=== PATIENT | female | born 1990 | race Caucasian/White ===

== ENCOUNTER 2018-04-02 10:08 | Observation (INO) ==
[2018-04-02 11:18] LABS: Microscopic, Urine URINE MICROSCOPIC (MICROSCOPIC)
[2018-04-02 11:20] LABS: Appearance,Urine SL CLOUDY (Clear); Bilirubin,Urine Negative (Negative); Blood, Urine Negative (Negative); Color,Urine YELLOW (Yellow); Glucose,Urine (UA) Negative (Negative); Ketones,Urine Negative (Negative); Leukocyte Esterase,Urine Negative (Negative); Protein,Urine Negative (Negative); Urobilinogen,Urine 0.2 EU/dl (0.2)
--- NOTE | 2018-04-02 11:22 | Emergency Department Note ---
ED Disposition Clinical Impression: Serotonin syndrome Disposition: Still a Patient Condition on Discharge: Fair Referrals: Con Carr MD [Primary Care Provider] - - Critical Care Critical Care Time: Yes Attestation: On 04/02/18, the high probability of a clinically significant, sudden or life th reatening deterioration of the following system(s) required my full and direct attention, intervention and personal management. The time I documented below is in addition to time spent performing reported procedures but includes the following listed in this critical care notation. Vital system(s) involved:: Central Nervous System My critical care processes included: Assessment & monitoring of V/S, Initial and Re-exams, Data Review/Interpretation, Coordinating Care, Medication Orders and management, Documentation Medical Decision Making - Abrahan Inquiry Pt receiving controlled substance: Yes Abrahan was queried for this patient: No Reason not queried -: Emergent pt cond-no time Risks and benefits of using a controlled substance: were not discussed with pt by me Vital Signs: 04/02/18 10:33 04/02/18 11:02 04/02/18 11:39 Temperature 99.1 F 98 F Temperature Source Oral Oral Pulse Rate [Right Brachial] 108 H 107 H 117 H Respiratory Rate 20 17 Blood Pressure [Right Arm] 151/110 H 184/106 H 150/100 H Blood Pressure Mean [Right Arm] 123 132 116 Blood Pressure Source [Right Arm] Automatic Cuff Automatic Cuff Automatic Cuff Blood Pressure Position [Right Arm] Sitting Sitting Sitting 02 Sat by Pulse Oximetry 99 96 98 Oxygen Delivery Method Room Air Room Air - Lab Data Lab Results 04/02/18 11:10: WBC 5.9, RBC 4.60, Hgb 12.4, Hct 39.3, MCV 85.4, MCH 26.9 L, MCH C 31.5 L, RDW 12.6, Plt Count 229, MPV 8.1, Neut % (Auto) 74.8, Lymph % (Auto) 19.4, [place] % (Auto) 4.0, Eos % (Auto) 1.1, Baso % (Auto) 0.7, Neut # (Auto) 4.4, Lymph # (Auto) 1.1, [place] # (Auto) 0.2, Eos # (Auto) 0.1, Baso # (Auto) 0.0 04/02/18 11:10: Sodium 139, Potassium 3.8, Chloride 102, Carbon Dioxide 30, Anion Gap 10.8, BUN 9, Creatinine 0.73, Estimated Creat Clear 102, Estimated GFR 94, Est GFR ( Amer) 114, Glucose 87, Calcium 9.0, Total Bilirubin 0.3, AST 16, ALT 21, Alkaline Phosphatase 53, Total Protein 7.8, Albumin 4.0, Globuli n 3.8 H, Albumin/Globulin Ratio 1.1 04/02/18 11:14: Urine Color Yellow, Urine Appearance Sl cloudy, Urine pH 8.0, Ur Specific [place] 1.010, Urine Protein Negative, Urine Glucose (UA) Negative, Urine Ketones Negative, Urine Blood Negative, Urine Nitrate Negative, Urine Bilirubin Negative, Urine Urobilinogen 0.2, Ur Leukocyte Esterase Negative, Urine WBC Occasional, Ur Squamous Epith Cells 10-20, Urine Bacteria Trace 04/02/18 11:14: Urine HCG, Qual Negative Result diagrams: 04/02/18 11:10 04/02/18 11:10 Orders (Tests/Meds): ED MEDICATIONS Generic Name Dose Route Start Last Admin Trade Name Freq PRN Reason Stop Dose Admin Sodium Chloride 1,000 mls @ 999 mls/hr 04/02/18 11:15 04/02/18 11:35 Sod Chlor 0.9% 1000ml Bag IV 04/02/18 13:15 999 mls/hr .[id number] LASHANDA Administration Discontinued Medications Generic Name Dose Route Start Last Admin Trade Name Freq PRN Reason Stop Dose Admin Lorazepam 1 mg 04/02/18 11:39 04/02/18 11:45 Ativan 2mg/Ml Vial IV 04/02/18 11:40 1 mg ONCE ONE Administration ORDERS Category Date Time Status Creatine Kinase Stat Lab 04/02/18 11:40 Ordered Serotonin, Serum Routine Lab 04/02/18 11:10 Stop Req Urinalysis and Microscopic Stat Lab 04/02/18 11:14 Ordered - ECG Data Tracing #1 EKG interpreted by Tucker Valenzuela MD: Rhythm: sinus tachycardia Rate: 123 Sandy: Rightward Ectopy: none Conduction: normal ST Segment Changes: Nonspecific T Wave Changes: Nonspecific Q Waves: none No evidence of acute ischemia or injury - Physician Consults Physician Consulted: Skye Carr Time: 11:57 Reason -: Admission Comment/Response: Agrees to admit the patient to the hospital. We discussed the patient's clinical information, including history, exam, laboratory and radiology results and ED course. Per hospital procedure, I will write temporary bridge inpatient orders on the patient. Specific orders requested by the admitting physician: IV fluids, stop Prozac and trazodone, Ativan 1 mg every 4 hours as needed General Adult HPI - General Chief complaint: Overdose Stated complaint: dizzy lightheaded tired, too many meds Time Seen by Provider: 04/02/18 11:22 Mode of Arrival: Ambulatory Limitations: No Limitations Description of Symptoms (Recalled from ER Triage Doc. by RN): PT INCIDENTALLY TOOK DOUBLE HER PRESCRIBED DOSE FOR LAST TWO WEEKS OF PROZAC AND IS EXTREMELY UPSET THAT SHE HAS DAMAGED HERSELF. SHE SUPPOSED HAS BEEN PRESCRIBED PROZAC 10MG PO TWICE DAILY AND THE "[facility] [employer] SENT HER PROZAC 20MG TABLETS TO WHICH SHE CONTINUED TO TAKE TWICE DAILY. SHE IS CONCERNED REGARDING SEROTONIN SYNDROME. STATES SHE FEELS LIKE SHE IS "LIGHTHEADED AND DRUGGED UP" AND HASN'T FELT RIGHT FOR DAYS. - History of Present Illness HPI narrative: Complains that she just does not feel herself, does not feel right for several days. She says that she just discovered last night that she has been taking more Prozac than prescribed. She had been on 20 mg/day, taken as two 10 mg pills. She was just recently switched to a home delivery pharmacy for her last prescription of Prozac. She discovered last night that she had been taking 20 mg pills, 2 a day. She discovered this by the fact that she was down to her last pill last night after just 2 weeks of a 1 month prescription. She denies visual disturbance. She denies muscle twitching. She has no specific pain. She saw her primary care provider in the office on Tuesday and was started on Ceftin for an upper respiratory infection. She had already been on Macrodantin for a urinary tract infection and is still on that medication. She has a history of -induced hypertension. Says that her blood pressure returned to normal after . - Related Data Home Medications Medication Instructions Recorded Confirmed Fluoxetine HCl [Prozac 20mg 20 mg PO DAILY 04/02/18 04/02/18 Capsule] Nitrofurantoin Monohyd/M-Cryst 100 mg PO BID 04/02/18 04/02/18 [Macrobid 100 mg Capsule] Trazodone HCl 50 mg PO HSP PRN 04/02/18 04/02/18 cefUROXime axetil [Ceftin 500mg 500 mg PO BID 04/02/18 04/02/18 Tab (GEQ)] Allergies Allergy/AdvReac Type Severity Reaction Status Date / Time erythromycin base Allergy Unknown Verified 04/02/18 11:35 [ERYTHROMYCIN BASE] sulfamethoxazole Allergy Verified 04/02/18 10:38 [From Bactrim] trimethoprim [From Bactrim] Allergy Verified 04/02/18 10:38 [facility] History I have reviewed the patient's past medical history: Yes - Social History Alcohol Intake: never - Psychiatric History Expresses thoughts of harming self/others: None Suicide Plan Description: No Plan ROS Obtained: Yes All systems reviewed & no additional complaints - Constitutional Constitutional: Denies fever(s) - ENT Ears, Nose, Mouth, and Throat: Reports nasal congestion, Reports nasal discharge, Reports sore throat - Cardiovascular Cardiovascular: Denies chest pain - Respiratory Respiratory: No dyspnea - Gastrointestinal Gastrointestingal: Denies: abdominal pain, vomiting - Genitourinary Female Genitourinary: Reports dysuria Physical Exam - General General appearance: alert, anxious - Head Head exam: atraumatic, normocephalic - Eye Eye exam: Present: normal appearance, PERRL, EOMI, other (No ocular clonus). Absent: nystagmus - ENT ENT exam: Present: normal oropharynx - Neck Neck exam: Present: normal inspection, full ROM - Chest Chest inspection: Present: normal inspection, symmetric chest wall rise - Respiratory Respiratory exam: Present: normal lung sounds bilaterally. Absent: respiratory distress - Cardiovascular Cardiovascular exam: Present: normal rhythm, tachycardia, normal heart sounds - Abdominal Exam Abdominal exam: Present: soft. Absent: distention, tenderness - Extremities Exam Extremities exam: Present: normal inspection. Absent: pedal edema - Neurological Exam Neurological exam: Present: alert, oriented X3, CN II-XII intact - Expanded Neurological Exam DTR: 4+: patellar (L), patellar (R), Achilles tendon (L), Achilles tendon (R) Comment: Clonus of knees and ankles. Mild to moderate muscular rigidity.
[2018-04-02 11:26] LABS: Bacteria,Urine Trace /lpf; WBC,Urine Occasional #/hpf (0-3)
[2018-04-02 11:29] LABS: Basophils % 0.7 % (0.1-2.0); Eosinophils # 0.1 K/mm3 (0.0-0.4); Eosinophils % 1.1 % (0.1-12.0); Hematocrit 39.3 % (37.0-47.0); Hemoglobin 12.4 g/dL (12.2-16.2); Lymphocytes # 1.1 K/mm3 (0.7-4.5); Lymphocytes % 19.4 K/mm3 (10-50); Mean Corpuscular HGB Conc 31.5 g/dL (31.8-35.4); Mean Corpuscular Hemoglobin 26.9 pg (27.0-31.2); Mean Corpuscular Volume 85.4 fl (81-99); Mean Platelet Volume 8.1 fl (7.4-10.4); Monocytes # 0.2 K/mm3 (0.1-1.0); Neutrophils # 4.4 K/mm3 (1.8-7.8); Neutrophils % 74.8 % (37.0-80.0); Platelet Count 229 K/mm3 (142-424); Red Cell Distribution Width 12.6 % (11.5-17.5); White Blood Count 5.9 K/mm3 (4.8-10.8)
[2018-04-02 11:30] LABS: Albumin/Globulin Ratio 1.1 (1.1-1.8); Anion Gap 10.8 mEq/L (5-15); Bilirubin,Total 0.3 mg/dL (0.2-1.0); Globulin 3.8 gm/dl (1.3-3.2); Potassium 3.8 mmoL/L (3.5-5.1); Total Protein,Serum 7.8 gm/dL (6.4-8.2)
--- NOTE | 2018-04-02 13:22 | Pharmacy Consult Notes ---
[facility] Pharmacy VTE Monitoring - Patient Demographics Admission date: 04/02/18 Report Date: 04/02/18 Time: 13:21 Allergies/Adverse Reactions: Patient Allergies erythromycin base [ERYTHROMYCIN BASE] Allergy (Unknown, Verified 04/02/18 11:35) sulfamethoxazole [From Bactrim] Allergy (Verified 04/02/18 10:38) trimethoprim [From Bactrim] Allergy (Verified 04/02/18 10:38) Height: 1.63 m Weight: 59.988 kg Patient Problems: Current Active Problems Serotonin syndrome (Acute) - VTE Risk Labs: VTE Related Lab Results Hgb 12.4 g/dL (12.2-16.2) 04/02/18 11:10 Hct 39.3 % (37.0-47.0) 04/02/18 11:10 Plt Count 229 K/mm3 (142-424) 04/02/18 11:10 BUN 9 mg/dL (7-18) 04/02/18 11:10 Creatinine 0.73 mg/dL (0.55-1.02) 04/02/18 11:10 Estimated Creat Clear 102 mL/min (0-300) 04/02/18 11:10 VTE Score: 0 VTE Risk Level: Very Low Risk - Prophylaxis Types of VTE Prophylaxis: TEDS Knee High (LINDA HOSE ORDERED)
--- NOTE | 2018-04-03 14:40 | H&P/Discharge Summary ---
<Caren Swanson - Last Filed: 04/03/18 14:57> General - General Admission date:: 04/02/18 Discharge date: 04/03/18 *Admission Date: 04/02/18 *Chief complaint: Did not feel like herself *History of present illness: Tawana Jaramillo is a 28-year-old usually healthy female who presented to [facility] not feeling like herself for the past week. She states she had been on Prozac 10 mg twice daily and had been taking mistakenly 20 mg twice daily. For the past week she has felt funny in the head. She is also had an upper respiratory tract infection and was started on Ceftin last week. She has been taking Sudafed twice daily as well. When she realized that she had been taking twice as much Prozac as prescribed, she presented to the emergency room for evaluation. She received IV fluids which made her feel better. She was admitted overnight for observation. [facility] History 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: Reports:: Migraine Denies:: Atherosclerotic Heart Disease, Cancer, Diabetes Mellitus Type 1, Diabetes Mellitus Type 2, MRSA Other Surgeries: Yes: Amputation: No Fractures: No - *Social History Educational Level: Completed College Alcohol Intake: never Occupational Status: unemployed Housing: house Household Members: spouse - Psychiatric History Expresses thoughts of harming self/others: None Suicide Plan Description: No Plan *Family Hx:: Asthma, Cancer, Diabetes, Heart Attack, Hyperlipidemia, Hypertension, Stroke Review of Systems - Constitutional Reports headache(s), Reports lack of energy, Denies chills, Denies fever(s) - ENT Reports nasal congestion - *Cardiovascular Denies chest pain, Denies shortness of breath - *Respiratory Denies chest congestion, Denies cough, Denies shortness of breath - *Gastrointestinal Denies abdominal pain, Denies constipation, Denies nausea, Denies vomiting - *Genitourinary Denies difficulty urinating - *Musculoskeletal Denies joint pain Comments: Extremities felt tremulous - *Neurologic Denies abnormal walking, Denies abnormal speech, Denies behavioral changes, Denies dizziness, Denies localized weakness Exam Vital signs and Labs for Last 24 Hours: Temp Pulse Resp BP Pulse Ox 98.8 F 88 18 145/86 H 100 04/03/18 07:18 04/03/18 07:18 04/03/18 07:18 04/03/18 07:18 04/03/18 07:18 I & O for Last 24 hours: Intake & Output 04/01/18 04/02/18 04/03/18 04/04/18 12:59 11:59 11:59 11:59 Intake Total 2165 / 2165 Output Total 450 / 450 Balance 1715 / 1715 Weight 132 lb 4 oz - Constitutional no acute distress - *Routine HEENT Exam Head: Present: normocephalic, atraumatic Eye: Present: PERRL ENT: Present: mucous membranes moist, oropharynx clear, dentition normal - *Routine Neck Exam Present: supple, full ROM. Absent: carotid bruit, lymphadenopathy, thyromegaly - *Routine Respiratory Exam Present: CTA bilaterally (Anteriorly and posteriorly) - *Routine Cardiovascular Exam Present: RRR. Absent: murmur - *Routine Abdominal Exam Present: soft, normoactive bowel sounds. Absent: tenderness, organomegaly - *Routine Extremities Exam Present: full ROM. Absent: edema, calf tenderness - *Routine Neurological Exam Present: alert, oriented X3, moving all extremities, normal speech. Absent: tremors Hospital Course Hospital Course: After the IV fluids in the emergency room patient states she did better. She was able to eat without difficulty. She ambulated without difficulty. L aboratory data was negative. A.m. after admission patient continued to do well. She had slept. She was stable to be discharged home. Disposition: Patient discharged home in stable and satisfactory condition. Results Completed studies during hospitalization [Text1]: Laboratory Tests 04/02/18 04/02/18 04/02/18 11:10 11:10 11:10 WBC 5.9 RBC 4.60 Hgb 12.4 Hct 39.3 MCV 85.4 MCH 26.9 L MCHC 31.5 L RDW 12.6 Plt Count 229 MPV 8.1 Neut % (Auto) 74.8 Lymph % (Auto) 19.4 [place] % (Auto) 4.0 Eos % (Auto) 1.1 Baso % (Auto) 0.7 Neut # (Auto) 4.4 Lymph # (Auto) 1.1 [place] # (Auto) 0.2 Eos # (Auto) 0.1 Baso # (Auto) 0.0 Sodium 139 Potassium 3.8 Chloride 102 Carbon Dioxide 30 Anion Gap 10.8 BUN 9 Creatinine 0.73 Estimated Creat Clear 102 Estimated GFR 94 Est GFR ( Amer) 114 Glucose 87 Calcium 9.0 Total Bilirubin 0.3 AST 16 ALT 21 Alkaline Phosphatase 53 Total Creatine Kinase 73 Total Protein 7.8 Albumin 4.0 Globulin 3.8 H Albumin/Globulin Ratio 1.1 Urine Color Urine Appearance Urine pH Ur Specific [place] Urine Protein Urine Glucose (UA) Urine Ketones Urine Blood Urine Nitrate Urine Bilirubin Urine Urobilinogen Ur Leukocyte Esterase Urine WBC Ur Squamous Epith Cells Urine Bacteria 04/02/18 11:14 WBC RBC Hgb Hct MCV MCH MCHC RDW Plt Count MPV Neut % (Auto) Lymph % (Auto) [place] % (Auto) Eos % (Auto) Baso % (Auto) Neut # (Auto) Lymph # (Auto) [place] # (Auto) Eos # (Auto) Baso # (Auto) Sodium Potassium Chloride Carbon Dioxide Anion Gap BUN Creatinine Estimated Creat Clear Estimated GFR Est GFR ( Amer) Glucose Calcium Total Bilirubin AST ALT Alkaline Phosphatase Total Creatine Kinase Total Protein Albumin Globulin Albumin/Globulin Ratio Urine Color Yellow Urine Appearance Sl cloudy Urine pH 8.0 Ur Specific [place] 1.010 Urine Protein Negative Urine Glucose (UA) Negative Urine Ketones Negative Urine Blood Negative Urine Nitrate Negative Urine Bilirubin Negative Urine Urobilinogen 0.2 Ur Leukocyte Esterase Negative Urine WBC Occasional Ur Squamous Epith Cells 10-20 Urine Bacteria Trace DS: Diagnosis - Discharge Diagnosis (1) Depression Status: Acute (2) Upper respiratory tract infection Status: Acute (3) Serotonin syndrome Status: Acute Discharge Medications - Medications for Discharge Home Medication List at Discharge: New Cyproheptadine HCl [Periactin 4mg Tablet] 4 mg PO Q6HP PRN #30 tablet PRN Reason: Serotonin syndrome Continue RX: cefUROXime axetil [Ceftin 500mg Tab (GEQ)] 500 mg PO BID Discontinued RX: Fluoxetine HCl [Prozac 20mg Capsule] 20 mg PO DAILY RX: Trazodone HCl 50 mg PO HSP PRN PRN Reason: Sleep Nitrofurantoin Monohyd/M-Cryst [Macrobid 100 mg Capsule] 100 mg PO BID Disposition Disposition: Home, Self-Care <Con Carr - Last Filed: 04/04/18 08:33> General - General Admission date:: 04/02/18 Exam Vital signs and Labs for Last 24 Hours: Temp Pulse Resp BP Pulse Ox 98.8 F 80 18 145/86 H 100 04/03/18 07:18 04/03/18 08:00 04/03/18 07:18 04/03/18 07:18 04/03/18 07:18 I & O for Last 24 hours: Intake & Output 04/01/18 04/02/18 04/03/18 04/04/18 12:59 11:59 11:59 11:59 Intake Total 2165 / 2165 Output Total 450 / 450 Balance 1715 / 1715 Weight 132 lb 4 oz Hospital Course Hospital Course: Saw patient and agree with above note. DS: Diagnosis - Discharge Diagnosis (1) Depression Status: Acute (2) Upper respiratory tract infection Status: Acute (3) Serotonin syndrome Status: Acute
== END 2018-04-03 11:27 | disposition home or self-care (01) ==
LOC: 2ND 10:08 → UTC 10:08 → 2ND 12:49
PROVIDERS: ADMIT Emergency Medicine; ATTEND Family Medicine

== ENCOUNTER → 2020-01-26 10:37 | Outpatient (CLI) | payer BC, SELFPAY ==
[2020-01-27 16:59] LABS: Covid-19 Nasal PCR Sendout UK Not Detected
== END ==
PROVIDERS: PCP Nurse Practitioner Family; Visit Provider Nurse Practitioner Family
DX: Z03.818 Encounter for observation for suspected exposure to other biological agents ruled out (principal)
CPT/HCPCS: U0003

== ENCOUNTER 2020-10-19 08:59 | Emergency (ER) | payer BC, SELFPAY ==
--- NOTE | 2020-10-19 09:35 | HMH.EDUTC ---
[facility] [place] Clinical Impression: Laryngitis Pharyngitis Qualifiers: Pharyngitis/tonsillitis etiology: unspecified etiology Qualified Code(s): J02.9 - Acute pharyngitis, unspecified Disposition: Home, Self-Care Condition on Discharge: Good Instructions: DI for Pharyngitis/Tonsillopharyngitis -- Adult, DI for Laryngitis Additional Instructions: Drink plenty of fluids. Take tylenol or ibuprofen for pain or fever. Take the medications as directed. Follow up with your regular doctor. GO TO THE ER FOR ANY WORSENING SYMPTOMS Prescriptions: Brompheniramine/Pseudoephed/Dm [Bromfed Dm Cough Syrup] 5 ml PO Q6HP PRN #240 syrup PRN Reason: Cough Transmission Status: Received by [employer] [facility] # methylPREDNISolone [Medrol] 4 mg PO DIRECTED 6 Days #21 tab.ds.pk Transmission Status: Received by [employer] # Cefdinir [Omnicef 300mg Capsule] 300 mg PO BID #20 cap Transmission Status: Received by [employer] # Referrals: Raphael Pineda MD [Primary Care Provider] - Forms: Work/School Release Time of Disposition: 09:38 Medical Decision Making - Medical Records Medical records reviewed: No: I reviewed the patient's medical records. - Abrahan Inquiry Pt receiving controlled substance: No Vital Signs: 10/19/20 09:40 10/19/20 09:42 Temperature 98.5 F 98.5 F Temperature Source Oral Pulse Rate 65 Pulse Rate [Left] 65 Respiratory Rate 18 18 Blood Pressure 147/95 H Blood Pressure [Right Arm] 147/95 H Blood Pressure Mean [Right Arm] 112 02 Sat by Pulse Oximetry 99 - Lab Data Lab results reviewed: Yes: I reviewed the patient's lab results. Lab Results 10/19/20 10:18: Strep Scn Rapid Clinic Negative Orders (Tests/Meds): ORDERS Category Date Time Status Strep Screen Confirmation Stat Micro 10/19/20 10:18 [place] [facility] [place] - General Stated complaint: lost voice, fatigued Time Seen by Provider: 10/19/20 09:40 - History of Present Illness Provider Complaint: She c/o sore throat and difficulty talking since yesterday. - Related Data Home Medications Medication Instructions Recorded Confirmed Fluoxetine HCl [Prozac 20mg 20 mg PO DAILY 07/23/19 07/23/19 Capsule] Trazodone HCl 25 mg PO HS 07/23/19 07/23/19 Previous Rx's Medication Instructions Recorded Ondansetron [Zofran 4mg ODT] 4 mg PO Q8HP PRN #20 tab.rapdis 07/23/19 Brompheniramine/Pseudoephed/Dm 5 ml PO Q6HP PRN #240 syrup 10/19/20 [Bromfed Dm Cough Syrup] Cefdinir [Omnicef 300mg Capsule] 300 mg PO BID #20 cap 10/19/20 methylPREDNISolone [Medrol] 4 mg PO DIRECTED 6 Days #21 10/19/20 tab.ds.pk Allergies Allergy/AdvReac Type Severity Reaction Status Date / Time erythromycin base Allergy Unknown Verified 10/19/20 09:42 [ERYTHROMYCIN BASE] sulfamethoxazole Allergy Verified 10/19/20 09:42 [From Bactrim] trimethoprim [From Bactrim] Allergy Verified 10/19/20 09:42 [facility] History - Hepatitis A Screen Attestation statement:: This patient has been screened for Hepatitis A risk factors. I have reviewed the patient's past medical history: Yes 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: Reports:: Migraine Denies:: Atherosclerotic Heart Disease, Cancer, Diabetes Mellitus Type 1, Diabetes Mellitus Type 2, MRSA Other Surgeries: Yes: Amputation: No Fractures: No - Social History Alcohol Intake: never Occupational Status: other Housing: house Household Members: spouse Family Hx:: Asthma, Cancer, Diabetes, Heart Attack, Hyperlipidemia, Hypertension, Stroke ROS Obtained: Yes All systems reviewed & no additional complaints - Constitutional Constitutional: Denies chills, Denies fever(s), Reports poor appetite, Reports malaise - Eyes Eyes: Denies eye discharge - ENT Ears, Nose, Mouth, and Throat: Reports as per HPI - Cardiovascular Cardiovascular: Denies chest pain - Respiratory Respiratory: Denies chest congestion, Reports cough,
[2020-10-19 09:40] VITALS: BP 147/95; PULSE 65; RESP 18; TEMP 36.9; O2SAT 99; BMI 24.0
[2020-10-19 09:42] VITALS: BP 147/95; PULSE 65; RESP 18; TEMP 36.9; O2SAT 99
[2020-10-19 10:56] LABS: UTC Strep Screen (Rapid) Negative (Negative)
== END 2020-10-19 09:43 | disposition home or self-care (01) ==
PROVIDERS: Emergency Provider Nurse Practitioner Family; PCP Family Medicine
DX: J04.0 Acute laryngitis (principal)
CPT/HCPCS: 87880; 99202; G0463

== ENCOUNTER 2021-03-14 15:19 | Emergency (ER) | payer BC, SELFPAY ==
[2021-03-14 15:25] VITALS: BP 138/92; PULSE 84; RESP 19; TEMP 37.1; O2SAT 98; BMI 25.7
--- NOTE | 2021-03-14 15:39 | HMH.EDUTC ---
[facility] [place] Disposition Clinical Impression: Upper respiratory tract infection Qualifiers: URI type: acute pharyngitis Pharyngitis/tonsillitis etiology: unspecified etiology Qualified Code(s): J02.9 - Acute pharyngitis, unspecified Disposition: Home, Self-Care Condition on Discharge: Good Instructions: DI for Pharyngitis/Tonsillopharyngitis -- Adult Additional Instructions: Start antibiotics today be sure to take it as ordered with the full length of time although you should start feeling better in 24-48 hours. Change toothbrush and toothpaste 24-48 hours after starting antibiotics Tylenol or Motrin as needed for fever or pain Encourage fluids, water, Gatorade, Powerade, try cold fluids, popsicles, ice cream will make it feel better You are contagious for 24 hours. Avoid kissing anyone, no eating or drinking after anyone. You are contagious. Follow-up the ER for new or worsening symptoms or no noticeable improvement over the next 24-48 hours. Follow-up with PCP this week. Prescriptions: Amoxicillin [Amoxicillin 500mg Tab] 500 mg PO BID 10 Days #20 tab Transmission Status: Pending to [employer] # predniSONE [Prednisone 20mg Tab] 20 mg PO BID #10 tab Transmission Status: Pending to [facility] # Referrals: Raphael Pineda MD [Primary Care Provider] - Time of Disposition: 15:45 Medical Decision Making - Abrahan Inquiry Pt receiving controlled substance: No Vital Signs: 03/14/21 15:25 Temperature 98.7 F Temperature Source Oral Pulse Rate [Right Brachial] 84 Respiratory Rate 19 Blood Pressure [Right Arm] 138/92 H Blood Pressure Mean [Right Arm] 107 Blood Pressure Source [Right Arm] Automatic Cuff Blood Pressure Position [Right Arm] Sitting 02 Sat by Pulse Oximetry 98 Oxygen Delivery Method Room Air [facility] [place] HPI - General Chief complaint: Urgent Treatment Center Stated complaint: sore throat,runny nose Time Seen by Provider: 03/14/21 15:39 Mode of Arrival: Ambulatory Source of Information: Patient Limitations: No Limitations Description of Symptoms (Recalled from Triage Doc. by RN): PATIENT C/O SORE THROAT AND CONGESTION SINCE THIS MORNING HEENT Symptoms (Recalled from RN notes): Yes Resp Symptoms (Recalled from RN notes): No Skin Symptoms (Recalled from RN notes): No MS Symptoms (Recalled from RN notes): No Functional Status (Recalled from RN notes): WNL - History of Present Illness Provider Complaint: 31 yr old female presents for sore throat and nasal congestion for 2 days. pt states her child was placed on antibiotics for the same issue, was tested neg for covid - Related Data Home Medications Medication Instructions Recorded Confirmed Trazodone HCl 25 mg PO HS 07/23/19 03/14/21 Sertraline HCl [Zoloft 50mg tablet] 50 mg PO DAILY 03/14/21 03/14/21 Previous Rx's Medication Instructions Recorded Amoxicillin [Amoxicillin 500mg Tab] 500 mg PO BID 10 Days #20 tab 03/14/21 predniSONE [Prednisone 20mg 20 mg PO BID #10 tab 03/14/21 Tab] Allergies Allergy/AdvReac Type Severity Reaction Status Date / Time erythromycin base Allergy Unknown Verified 10/19/20 09:42 [ERYTHROMYCIN BASE] sulfamethoxazole Allergy Verified 10/19/20 09:42 [From Bactrim] trimethoprim [From Bactrim] Allergy Verified 10/19/20 09:42 - Worker's Comp Is this a Worker's Comp case?: No H History - Hepatitis A Screen Drug use history?: No High risk sexual behaviors?: No History of sexually transmitted infection?: No Currently employed?: No Childcare worker?: No Do you have indoor plumbing?: Yes Do you have electricity?: Yes Attestation statement:: This patient has been screened for Hepatitis A risk factors. I have reviewed the patient's past medical history: Yes 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: Reports:: Diabetes Mellitus Type 2, Migraine Denies:: Atherosclerotic Heart Disease, Cancer, Diabetes Mellitus Type 1, MRSA Other Surgeries: Yes: Amputation: No Fractures
[2021-03-14 15:43] LABS: UTC Strep Screen (Rapid) Positive (Negative)
[2021-03-14 15:48] VITALS: BP 138/92; PULSE 84; RESP 19; TEMP 37.1; O2SAT 98
== END 2021-03-14 15:50 | disposition home or self-care (01) ==
PROVIDERS: Emergency Provider Nurse Practitioner Family; PCP Family Medicine
DX: J06.9 Acute upper respiratory infection, unspecified (principal)
CPT/HCPCS: 87880; 99202; G0463

== ENCOUNTER → 2021-07-07 15:21 | Outpatient (CLI) | payer BC, SELFPAY | PROVIDERS: Visit Provider Nurse Practitioner | DX: U07.1 COVID-19 (principal) | CPT/HCPCS: C9803; U0003; U0005 ==

== ENCOUNTER 2022-03-31 08:53 | Emergency (ER) | payer BC, SELFPAY ==
[2022-03-31 09:55] VITALS: BP 146/102; PULSE 75; RESP 21; TEMP 36.7; O2SAT 100; BMI 27.6
[2022-03-31 10:07] VITALS: BP 146/102; PULSE 75; RESP 21; TEMP 36.7; O2SAT 100
--- NOTE | 2022-03-31 10:14 | EXP.UTC ---
Discharge Plan Disposition Patient Disposition: Home, Self-Care Condition: Good Prescriptions Prescriptions: New azithromycin [Zithromax Z-Christiano] 250 mg tablet See Rx Instructions .ROUTE .COMPLEX 5 Days Qty: 6 0RF Rx Instructions: For 250 mg dose pack: take 500 mg today (day 1), then 250 mg for 4 days (days 2-5) benzonatate 100 mg capsule 100 mg PO TID PRN (Reason: cough) Qty: 30 0RF methylprednisolone [Medrol (Christiano)] 4 mg tablets,dose pack See Rx Instructions .Route .COMPLEX 6 Days Qty: 21 0RF Rx Instructions: taper pack; No Action trazodone 50 MG tablet 25 mg PO Referrals Follow up/Referrals: Con Carr MD [Primary Care Provider] - See instructions Activity Restrictions/Add. Instructions Additional Instructions/Restrictions: *Monitor Temp, Over the counter Motrin or Tylenol as directed/as needed Tylenol every 4 hours and Motrin every 6 hours (as long as your family doctor has told you that you can take it) for fever or pain. and straight to ER if unable to lower temp less than 101.0 after medication given *Warm salt water gargles may help to soothe the throat *Throat Lozenges? *Warm fluids like tea with honey may help to soothe the throat? *Sleep elevated *Humidifier/Vaporizer Take medication as prescribed Your throat swab was sent for culture. Those results are typically sent to your primary care. Be sure to follow up in 2-3 days with your family doctor/primary care physician if no improvement so they can review those result and treat if necessary. If you don?t have a primary care doctor, I recommend you get one but in the mean time, you will have to return to a walk in clinic Follow up IMMEDIATELY for new or worsening symptoms or no Noticeable improvement over the next 48-72 hours. 911 for difficulty breathing or swallowing Clinical Impressions Clinical Impression: Sinusitis Stand Alone Forms Stand Alone Forms: Work/School Release Instructions Patient Instructions: DI for Sinusitis, Sinus Headache, Sinusitis Discharge ED Provider: Deanna Green [facility] General Stated complaint: cough, sore throat Mode of Arrival: Ambulatory Source of Information: Patient Limitations: No Limitations Time Seen by Provider: 03/31/22 10:15 Description of Symptoms (Recalled from Triage Doc. by RN): PATIENT C/O SORE THROAT, COUGH, CONGESTION, AND LOSS OF VOICE THAT STARTED TUESDAY NIGHT HEENT Symptoms (Recalled from RN notes): Yes Resp Symptoms (Recalled from RN notes): Yes Skin Symptoms (Recalled from RN notes): No MS Symptoms (Recalled from RN notes): No Functional Status (Recalled from RN notes): WNL History of Present Illness Provider Complaint: Patient states that she has been sick since Tuesday States that she has been having sore throat, cough, sinus congestion and pressure so today when she was still not feeling well she came in States that last night she noticed she was loosing her voice Related Data Home Medications Medication Instructions Recorded Confirmed trazodone 50 mg tablet 25 mg PO HS Insomnia 07/23/19 03/31/22 Previous Rx's Medication Instructions Recorded azithromycin 250 mg tablet See Rx Instructions PO .COMPLEX 5 03/31/22 (Zithromax Z-Christiano) days #6 tabs benzonatate 100 mg capsule 100 mg PO TID PRN cough #30 caps 03/31/22 methylprednisolone 4 mg tablets in See Rx Instructions .Route 03/31/22 a dose pack (Medrol (Christiano)) .COMPLEX 6 days #21 tabs Allergies Allergy/AdvReac Type Severity Reaction Status Date / Time erythromycin base Allergy Unknown Verified 10/19/20 09:42 [ERYTHROMYCIN BASE] sulfamethoxazole Allergy Verified 10/19/20 09:42 [From Bactrim] trimethoprim [From Bactrim] Allergy Verified 10/19/20 09:42 Worker's Comp Is this a Worker's Comp case?: No PFSH PFSH 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 (Updated 03/31/22 @ 10:23 by Deanna Green APRN) Anxiety Asthma Depression Migraine Surgical History (Upd
[2022-03-31 10:16] LABS: UTC Strep Screen (Rapid) Negative (Negative)
[2022-03-31 10:17] LABS: UTC Influenza A Antigen Negative (Negative); UTC Influenza B Antigen Negative (Negative)
== END 2022-03-31 10:28 | disposition home or self-care (01) ==
PROVIDERS: Emergency Provider Nurse Practitioner; PCP Family Medicine
DX: J02.9 Acute pharyngitis, unspecified (principal); R09.81 Nasal congestion; R05.9 Cough, unspecified; D64.9 Anemia, unspecified; G47.00 Insomnia, unspecified; G43.909 Migraine, unspecified, not intractable, without status migrainosus; F32.A Depression, unspecified; F41.9 Anxiety disorder, unspecified; Z79.52 Long term (current) use of systemic steroids; Z79.899 Other long term (current) drug therapy; Z88.0 Allergy status to penicillin; Z88.1 Allergy status to other antibiotic agents; Z88.2 Allergy status to sulfonamides; Z88.3 Allergy status to other anti-infective agents; Z88.8 Allergy status to other drugs, medicaments and biological substances
CPT/HCPCS: 87804; 87880; 99213; G0463

== ENCOUNTER 2022-05-01 08:26 | Emergency (ER) | payer BC, SELFPAY ==
--- NOTE | 2022-05-01 09:27 | EXP.UTC ---
Discharge Plan Disposition Patient Disposition: Home, Self-Care Condition: Good Prescriptions Prescriptions: New phenazopyridine [Pyridium] 200 mg tablet 200 mg PO Q8H 2 Days Qty: 6 0RF ondansetron 4 mg Tablet,Disintegrating 4 mg PO Q8H PRN (Reason: Nausea) Qty: 12 0RF nitrofurantoin monohyd/m-cryst [Macrobid] 100 mg Capsule 100 mg PO BID Qty: 10 0RF Rx Instructions: must administer with a meal/food No Action trazodone 50 MG tablet 25 mg PO HS azithromycin [Zithromax Z-Christiano] 250 mg tablet See Rx Instructions .ROUTE .COMPLEX 5 Days Qty: 6 0RF Rx Instructions: For 250 mg dose pack: take 500 mg today (day 1), then 250 mg for 4 days (days 2-5) benzonatate 100 mg capsule 100 mg PO TID PRN (Reason: cough) Qty: 30 0RF methylprednisolone [Medrol (Christiano)] 4 mg tablets,dose pack See Rx Instructions .Route .COMPLEX 6 Days Qty: 21 0RF Rx Instructions: taper pack; Referrals Follow up/Referrals: Con Carr MD [Primary Care Provider] - See instructions Activity Restrictions/Add. Instructions Additional Instructions/Restrictions: Drink plenty of fluids. Take tylenol or ibuprofen for pain or fever. Take the medications as directed. Follow up with your regular doctor. GO TO THE ER FOR ANY WORSENING SYMPTOMS The pyridium will make your urine turn orange, this is an expected side effect. It will stain your clothes if it comes into contact with them. We will culture the urine. That will tell what bacteria is causing your infection and which antibiotics will treat it best. Sometimes the first antibiotic we prescribe turns out to not work against different bacteria. So, make sure you follow up within 3 days if you are not getting better. Clinical Impressions Clinical Impression: UTI (urinary tract infection) Instructions Patient Instructions: Urinary Tract Infection, Urine Culture Discharge ED Provider: Miguel Canela [facility] General Stated complaint: Burning when Urination Time Seen by Provider: 05/01/22 09:27 History of Present Illness Provider Complaint: She c/o dysuria and urinary frequency for the past 2 days. Related Data Home Medications Medication Instructions Recorded Confirmed trazodone 50 mg tablet 25 mg PO HS Insomnia 07/23/19 03/31/22 Previous Rx's Medication Instructions Recorded azithromycin 250 mg tablet See Rx Instructions PO .COMPLEX 5 03/31/22 (Zithromax Z-Christiano) days #6 tabs benzonatate 100 mg capsule 100 mg PO TID PRN cough #30 caps 03/31/22 methylprednisolone 4 mg tablets in See Rx Instructions .Route 03/31/22 a dose pack (Medrol (Christiano)) .COMPLEX 6 days #21 tabs nitrofurantoin 100 mg PO BID #10 caps 05/01/22 monohydrate/macrocrystals 100 mg capsule (Macrobid) ondansetron 4 mg disintegrating 4 mg PO Q8H PRN Nausea #12 tabs 05/01/22 tablet phenazopyridine 200 mg tablet 200 mg PO Q8H 2 days #6 tabs 05/01/22 (Pyridium) Allergies Allergy/AdvReac Type Severity Reaction Status Date / Time erythromycin base Allergy Unknown Verified 05/01/22 09:34 [ERYTHROMYCIN BASE] sulfamethoxazole Allergy Verified 05/01/22 09:34 [From Bactrim] trimethoprim [From Bactrim] Allergy Verified 05/01/22 09:34 [facility] Disclaimer: The information contained in this section may have been updated after the patient was seen, as this information can be updated by other users. 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 Anxiety Asthma Depression Migraine Surgical History History of section Social History Smoking Status: Never smoker second hand exposure: No alcohol intake: never current occupational status: other Travel in the last 8 weeks: None household members: spouse housing: house current occupational exposures/hazards: No caffeine: No RO
[2022-05-01 09:31] VITALS: BP 136/94; PULSE 75; RESP 16; TEMP 36.6; O2SAT 100; BMI 25.7
[2022-05-01 10:17] LABS: Apearance,Urine Clear (Clear); Color,Urine Orange (Yellow)
[2022-05-01 10:18] LABS: Bilirubin,Urine Negative (Negative); Blood, Urine 2+ (Negative); Glucose,Urine (UA) 1+ (Negative); Ketones,Urine Negative (Negative); Protein,Urine Negative (Negative); Specific Gravity, Urine <= 1.005 (1.005-1.030); UTC Leukocyte Esterase,Urine 2+ (Negative); UTC Nitrate,Urine Positive (Negative); Urobilinogen,Urine 1 EU/dl (0.2)
[2022-05-01 10:30] VITALS: BP 136/94; PULSE 75; RESP 16; TEMP 36.6
== END 2022-05-01 10:33 | disposition home or self-care (01) ==
PROVIDERS: Emergency Provider Nurse Practitioner Family; PCP Family Medicine
DX: N39.0 Urinary tract infection, site not specified (principal); M54.9 Dorsalgia, unspecified; G43.909 Migraine, unspecified, not intractable, without status migrainosus; J45.909 Unspecified asthma, uncomplicated; F32.A Depression, unspecified; F41.9 Anxiety disorder, unspecified; Z88.0 Allergy status to penicillin; Z88.1 Allergy status to other antibiotic agents; Z88.2 Allergy status to sulfonamides; Z88.3 Allergy status to other anti-infective agents; Z88.8 Allergy status to other drugs, medicaments and biological substances
CPT/HCPCS: 81003; 87086; 87088; 87186; 99213; G0463

== ENCOUNTER → 2023-01-27 12:00 | Outpatient (CLI) | payer OTHER, SELFPAY | PROVIDERS: PCP Family Medicine; Visit Provider Student in an Organized Health Care Education/Training Program | DX: J02.9 Acute pharyngitis, unspecified (principal); R05.1 Acute cough; R51.9 Headache, unspecified | CPT/HCPCS: 87635 ==

== ENCOUNTER 2023-04-11 19:14 | Emergency (ER) | payer OTHER, SELFPAY ==
[2023-04-11 19:15] VITALS: BP 158/100; PULSE 78; RESP 18; TEMP 36.6; O2SAT 100; BMI 25.7
--- NOTE | 2023-04-11 20:25 | HMH.EDGENADL ---
Discharge Plan Disposition Patient Disposition: Home, Self-Care Prescriptions Prescriptions: No Action YXY-lotl-ML-[id number] 3-fat com #1 27-1-300 mg capsule PO azithromycin [Zithromax Z-Christiano] 250 mg tablet See Rx Instructions PO .COMPLEX Qty: 6 0RF Rx Instructions: For 250 mg dose pack: take 500 mg today (day 1), then 250 mg for 4 days (days 2-5) PO Referrals Follow up/Referrals: Sofia Michelle [Primary Care Provider] - See instructions Activity Restrictions/Add. Instructions Additional Instructions/Restrictions: At this time it was felt you are safe to be discharged home. If new or worsening symptoms please do not hesitate to return the emergency department. Please dress your wound daily with bacitracin and gauze. Please follow-up with your family doctor within 1 week for continued evaluation. Clinical Impressions Clinical Impression: Fingertip amputation Discharge ED Provider: Howie Medina General Adult HPI General Chief complaint: Wound/Laceration Stated complaint: CUT RT PINKY FINGER Time Seen by Provider: 04/11/23 19:45 Mode of Arrival: Ambulatory Source of Information: Patient Limitations: No Limitations Description of Symptoms (Recalled from ER Triage Doc. by RN): Pt presents with right pinky lac from home while slicing cucumber. Unknown last tetanus shot, currently and does not want one. History of Present Illness HPI narrative: Patient is a 33-year-old female who presents emergency department for evaluation of right pinky fingertip injury while slicing a cucumber. Patient was using a mandolin when she sliced her right pinky. No other traumatic injuries. Last tetanus 4 to 5 years ago. No other acute complaints at this time. Related Data Home Medications Medication Instructions Recorded Confirmed TER-nyek-FO-omega 3-fat com #1 27 cap PO 01/27/23 01/27/23 mg-1 mg-300 mg capsule Previous Rx's Medication Instructions Recorded azithromycin 250 mg tablet See Rx Instructions PO .COMPLEX #6 01/27/23 (Zithromax Z-Christiano) tabs Allergies Allergy/AdvReac Type Severity Reaction Status Date / Time erythromycin base Allergy Unknown Verified 01/27/23 14:57 [ERYTHROMYCIN BASE] sulfamethoxazole Allergy Verified 01/27/23 14:57 [From Bactrim] trimethoprim [From Bactrim] Allergy Verified 01/27/23 14:57 PFSH PFSH Disclaimer: The information contained in this section may have been updated after the patient was seen, as this information can be updated by other users. 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 (Updated 04/11/23 @ 20:25 by Howie Medina MD) Anxiety Asthma Depression Gastroenteritis Laryngitis Migraine Pharyngitis Upper respiratory tract infection UTI (urinary tract infection) Surgical History History of section Social History Smoking Status: Never smoker second hand exposure: No alcohol intake: never current occupational status: other Travel in the last 8 weeks: None household members: spouse housing: house current occupational exposures/hazards: No caffeine: No ROS Obtained: Yes Systems reviewed as appropriate & no additional complaints except as documented Physical Exam General General appearance: alert and in no apparent distress Head Head exam: atraumatic and normocephalic Eye Eye exam: Present PERRL and EOMI ENT ENT exam: Present mucous membranes moist Neck Neck exam: Present normal inspection Chest Chest inspection: Present normal inspection and symmetric chest wall rise Respiratory Respiratory exam: Absent respiratory distress Cardiovascular Cardiovascular exam: Present regular rate and normal rhythm Extremities Exam Extremities exam: Present other (Partial fingertip amputation on the palmar aspect of the right pinky that is largely hemostatic. No nailbed involvement. No exposed bone.) Neurologica
[2023-04-11 20:42] VITALS: BP 140/81; PULSE 79; RESP 18; TEMP 37.1; O2SAT 100
== END 2023-04-11 20:43 | disposition home or self-care (01) ==
PROVIDERS: Emergency Provider Emergency Medicine; PCP Internal Medicine
DX: S61.216A Laceration without foreign body of right little finger without damage to nail, initial encounter (principal); W26.0XXA Contact with knife, initial encounter
CPT/HCPCS: 99283

== ENCOUNTER 2024-01-14 08:32 | Emergency (ER) | payer BC, SELFPAY ==
[2024-01-14 09:30] VITALS: BP 153/96; PULSE 72; RESP 19; TEMP 36.7; O2SAT 98; BMI 27.4
--- NOTE | 2024-01-14 09:49 | ED_ITS ---
Discharge Plan Disposition Patient Disposition: Home, Self-Care Condition: Good Prescriptions Prescriptions: New ciprofloxacin HCl [Cipro] 250 mg tablet 250 mg PO BID 3 Days Qty: 6 0RF Referrals Follow up/Referrals: Sofia Michelle [Primary Care Provider] - See instructions Activity Restrictions/Add. Instructions Additional Instructions/Restrictions: Increase fluids, water and not soda or tea. Can drink cranberry juice or cranberry extract. Wipe front to back Wear cotton underwear Empty bladder after intercourse Start antibiotics immediately and make sure you take the full course although you may start to see improvement over the next 48 hours. You can eat yogurt or take probiotics to decrease diarrhea or yeast infection caused by the antibiotic Be sure to follow-up anytime for new or worsening symptoms in 48 hours for wound urine culture results be sure to let you PCP no recent urine for culture so they can request records and ensure that you have appropriate antibiotic if you are not getting better or getting worse. If symptoms worsen or do not improve return or be seen in the ER. Follow-up with primary care this week. Clinical Impressions Clinical Impression: UTI (urinary tract infection) Instructions Patient Instructions: DI for Urinary Tract Infection (UTI) Print Language Print Language: [place] Discharge ED Provider: Earnest ([facility] HPI General Stated complaint: uti Mode of Arrival: Ambulatory Source of Information: Patient Limitations: No Limitations Time Seen by Provider: 01/14/24 09:49 Description of Symptoms (Recalled from Triage Doc. by RN): PATIENT C/O PAIN AND BURING WITH URINATION SINCE YESTERDAY HEENT Symptoms (Recalled from RN notes): No Resp Symptoms (Recalled from RN notes): No Skin Symptoms (Recalled from RN notes): No MS Symptoms (Recalled from RN notes): No Functional Status (Recalled from RN notes): WNL History of Present Illness Provider Complaint: 33 yr old female presents for burning, freq and pain since yesterday. pt states n tues she finished a course of Macrobid Related Data Previous Rx's ?Medication ?Instructions ?Recorded ciprofloxacin HCl 250 mg tablet 250 mg PO BID 3 days #6 tabs 01/14/24 (Cipro) Allergies Allergy/AdvReac Type Severity Reaction Status Date / Time erythromycin base Allergy Unknown Verified 01/27/23 14:57 [ERYTHROMYCIN BASE] sulfamethoxazole Allergy Verified 01/27/23 14:57 [From Bactrim] trimethoprim [From Bactrim] Allergy Verified 01/27/23 14:57 Worker's Comp Is this a Worker's Comp case?: No [facility] Disclaimer: The information contained in this section may have been updated after the patient was seen, as this information can be updated by other users. 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) Smoking Status: Never smoker second hand exposure: No alcohol intake: never current occupational status: other Travel in the last 8 weeks: None household members: spouse housing: house current occupational exposures/hazards: No caffeine: No ROS Obtained: Yes All systems reviewed & no additional complaints except as documented Constitutional Constitutional: Reports system reviewed and no additional complaints, except as documented Eyes Eyes: Reports system reviewed and no additional complaints, except as documented ENT Ears, Nose, Mouth, and Throat: Reports system reviewed and no additional co mplaints, except as documented Cardiovascular Cardiovascular: Reports system reviewed and no additional complaints, except as documented Respiratory Respiratory: Reports system reviewed and no additional complaints, except as documented Gastrointestinal Gastrointestingal: Reports system reviewed and no additional complaints, except as documented Genitourinary Female Genitourinary: Reports system reviewed and no additional complaints, except as documented, Reports as per HPI, Reports dysuria, Reports urinary frequency, Reports urinary hesitancy and Reports urinary urgency Musculoskeletal Musculoskeletal: Reports system reviewed and no additional complaints, except as documented Neurologic Neurologic: Reports system reviewed and no additional complaints, except as documented Endocrine Endocrine: Reports system reviewed and no additional complaints, except as documented Hematologic/Lymphatic Henatologic/Lymphatic: Reports system reviewed and no additional complaints, except as documented Allergic/Immunologic Allergic/Immunologic: Reports system reviewed and no additional complaints, except as documented Physical Exam General General appearance: alert and in no apparent distress Head Head exam: atraumatic Eye Eye exam: Present normal appearance and PERRL ENT ENT exam: Present normal exam Respiratory Respiratory exam: Present normal lung sounds bilaterally Cardiovascular Cardiovascular exam: Present regular rate and normal rhythm Neurological Exam Neurological exam: Present alert and oriented X3 Medical Decision Making Medical Records Medical records reviewed: Yes I reviewed the patient's medical records. Abrahan Inquiry Pt receiving controlled substance: No Abrahan was queried for this patient: No Vital Signs: 01/14/24 09:30 Temperature 98.1 F Temperature Source Oral Pulse Rate [Left Brachial] 72 Respiratory Rate 19 Blood Pressure [Left Arm] 153/96 H Blood Pressure Mean [Left Arm] 115 Blood Pressure Source [Left Arm] Automatic Cuff Blood Pressure Position [Left Arm] Sitting 02 Sat by Pulse Oximetry 98 Oxygen Delivery Method Room Air Lab Data Lab results reviewed: Yes I reviewed the patient's lab results. Orders (Tests/Meds): ORDERS Category Date Time Status Urine Culture Stat Micro 01/14/24 09:46 Ordered
[2024-01-14 09:51] LABS: Apearance,Urine Clear (Clear); Blood, Urine Negative (Negative); Color,Urine Orange (Yellow); Glucose,Urine (UA) 100 (Negative); Ketones,Urine Negative (Negative); Protein,Urine Negative (Negative); Specific Gravity, Urine <= 1.005 (1.005-1.030)
[2024-01-14 09:52] LABS: Bilirubin,Urine Negative (Negative); UTC Leukocyte Esterase,Urine Negative (Negative); UTC Nitrate,Urine Positive (Negative); UTC Pregnancy Test, Urine Negative (Negative); Urobilinogen,Urine 1 EU/dl (0.2)
[2024-01-14 09:56] VITALS: BP 153/96; PULSE 72; RESP 19; TEMP 36.7; O2SAT 98
== END 2024-01-14 09:59 | disposition home or self-care (01) ==
PROVIDERS: Emergency Provider Nurse Practitioner Family; PCP Internal Medicine
DX: N39.0 Urinary tract infection, site not specified (principal); R30.0 Dysuria; R35.0 Frequency of micturition
CPT/HCPCS: 81003; 81025; 87086; 99212; 99214; G0463

== ENCOUNTER 2024-06-28 18:01 | Emergency (ER) | payer BC, SELFPAY ==
--- NOTE | 2024-06-28 18:23 | EXP.UTC ---
Discharge Plan Disposition Patient Disposition: Home, Self-Care Condition: Good Prescriptions Prescriptions: New ondansetron 4 mg Tablet,Disintegrating 4 mg PO Q8H PRN (Reason: Nausea) Qty: 20 0RF promethazine 25 mg suppository 25 mg TN Q6H PRN (Reason: nausea and vomiting) Qty: 12 0RF Referrals Follow up/Referrals: Sofia Michelle [Primary Care Provider] - See instructions Activity Restrictions/Add. Instructions Additional Instructions/Restrictions: Drink plenty of fluids. Water or an electrolyte drink like pedialyte would be best. Take tylenol or ibuprofen for fever. Take the medications as directed. Don't take the zofran (ondesetron) and promethazine together. The promethazine is for if you continue to have nausea/vomiting despite taking the zofran. Follow up with your regular doctor. GO TO THE ER FOR ANY WORSENING SYMPTOMS Clinical Impressions Clinical Impression: Gastroenteritis Stand Alone Forms Stand Alone Forms: Work/School Release Instructions Patient Instructions: DI for Viral Gastroenteritis -- Adult, Ondansetron, Promethazine Print Language Print Language: Nigerien Discharge ED Provider: Miguel Canela [facility] General Stated complaint: nausea,body aches Time Seen by Provider: 06/28/24 18:23 Related Data Previous Rx's ?Medication ?Instructions ?Recorded ondansetron 4 mg disintegrating 4 mg PO Q8H PRN Nausea #20 tabs 06/28/24 tablet promethazine 25 mg rectal 25 mg TN Q6H PRN nausea and 06/28/24 suppository vomiting #12 ea Allergies Allergy/AdvReac Type Severity Reaction Status Date / Time erythromycin base Allergy Unknown Verified 04/11/24 08:31 (ERYTHROMYCIN BASE) sulfamethoxazole (From Allergy Verified 04/11/24 08:31 Bactrim) trimethoprim (From Bactrim) Allergy Verified 04/11/24 08:31 [facility] Disclaimer: The information contained in this section may have been updated after the patient was seen, as this information can be updated by other users. 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 (Updated 06/28/24 @ 19:22 by Miguel Canela APRN) Sinusitis Serotonin syndrome Acute middle ear effusion Fingertip amputation UTI (urinary tract infection) UTI (urinary tract infection) Depression Anxiety Migraine Asthma Laryngitis Pharyngitis Gastroenteritis Upper respiratory tract infection Surgical History History of section Social History Smoking Status: Never smoker second hand exposure: No alcohol intake: never current occupational status: other Travel in the last 8 weeks: None household members: spouse housing: house current occupational exposures/hazards: No caffeine: No Have you lived/traveled outside [place] in past 30 days?: No Contact w/someone who lives/traveled outside US past 30 days?: No Exposure to someone with infectious disease in past 14 days?: No Do you have a fever (greater than 100.4 F or 38 C)?: No Have you tested positive for COVID-19: No Exposed to someone with COVID-19 in past 14 days?: No Do you have a sore throat?: No Do you have a cough?: No Do you have any weakness?: No Do you have any diarrhea?: No Are you experiencing any unusual bleeding?: No Do you have any muscle aches/pain?: No Do you have any abdominal pain?: No Are you experiencing loss of taste or smell?: No ROS Obtained: Yes All systems reviewed & no additional complaints except as documented Constitutional Constitutional: Denies chills, Denies fever(s) and Reports poor appetite ENT Ears, Nose, Mouth, and Throat: Denies dizziness and Denies sore throat Cardiovascular Cardiovascular: Denies dyspnea Respiratory Respiratory: Denies chest congestion, Denies cough and Denies dyspnea Gastrointestinal Gastrointestingal: Reports as per HPI; Denies abdominal pain Genitourinary Female Genitourinary: Denies difficulty voiding, Denies dysuria, Denies hematuria, Denies urinary frequency, Denies urinary incontinence, Denies urinary hesitancy and Denies urinary urgency Musculoskeletal Musculoskeletal: Denies arthralgias Integumentary/Breasts Skin/Breast: Denies rash Neurologic Neurologic: Denies dizziness Physical Exam General General appearance: alert and in no apparent distress Head Head exam: atraumatic and normocephalic Eye Eye exam: Present normal appearance, PERRL and EOMI ENT ENT exam: Present normal exam, normal oropharynx, mucous membranes moist, TM's normal bilaterally and normal external ear exam Neck Neck exam: Present normal inspection, full ROM and trachea midline; Absent tenderness, meningismus or lymphadenopathy Chest Chest inspection: Present normal inspection and symmetric chest wall rise; Absent tenderness, rash or abscess Respiratory Respiratory exam: Present normal lung sounds bilaterally; Absent respiratory distress, wheezes or stridor Cardiovascular Cardiovascular exam: Present regular rate and normal rhythm; Absent irregular rhythm, systolic murmur, diastolic murmur or JVD Abdominal Exam Abdominal exam: Present soft and hyperactive bowel sounds; Absent distention, tenderness, guarding, rebound, rigidity, psoas sign, obturator sign, heel tap sign, Rob's sign, Rovsing's sign or tenderness at McBurney's Point Extremities Exam Extremities exam: Present normal inspection and full ROM; Absent tenderness Back Exam Back exam: Present normal inspection and full ROM; Absent tenderness, CVA tenderness (R) or CVA tenderness (L) Neurological Exam Neurological exam: Present alert, oriented X3 and CN II-XII intact Psychiatric Psychiatric exam: Present normal affect and normal mood Skin Skin exam: Present warm, dry, intact and normal color Lymphatic Lymphatic Findings: no adenopathy Medical Decision Making Medical Records Medical records reviewed: No I reviewed the patient's medical records. Screening: Per USPSTF and CDC recommendations, given the prevalence of disease in our region, it is our hospital?s policy to screen for HIV and viral Hepatitis for all patients aged 18 and over and those with ongoing risk factors. Abrahan Inquiry Pt receiving controlled substance: No
[2024-06-28 18:32] VITALS: BP 133/88; PULSE 91; RESP 18; TEMP 36.6; O2SAT 99; BMI 24.7
[2024-06-28 19:22] VITALS: BP 133/88; PULSE 91; RESP 18; TEMP 36.6
== END 2024-06-28 19:38 | disposition home or self-care (01) ==
PROVIDERS: Emergency Provider Nurse Practitioner Family; PCP Internal Medicine
DX: K52.9 Noninfective gastroenteritis and colitis, unspecified (principal)
CPT/HCPCS: 99212; G0381

== ENCOUNTER 2024-09-05 20:31 | Emergency (ER) | payer BC, SELFPAY ==
[2024-09-05 21:13] VITALS: BP 184/100; PULSE 76; RESP 16; TEMP 36.7; O2SAT 100; BMI 23.1
--- NOTE | 2024-09-05 21:57 | [facility].EDGENADL ---
Discharge Plan Disposition Patient Disposition: Home, Self-Care Chief Complaint: Headache Prescriptions Prescriptions: No Action ondansetron 4 mg Tablet,Disintegrating 4 mg PO Q8H PRN (Reason: Nausea) Qty: 20 0RF promethazine 25 mg suppository 25 mg MO Q6H PRN (Reason: nausea and vomiting) Qty: 12 0RF Referrals Follow up/Referrals: Sofia Michelle [Primary Care Provider] - See instructions Activity Restrictions/Add. Instructions Additional Instructions/Restrictions: Call your family doctor to establish care for this visit to the emergency department and schedule follow-up within 48 hours to ensure improvement. If you have any worsening of your condition or any other concerning signs or symptoms, return to the emergency department or your primary care doctor for further evaluation. Take Tylenol 1000 mg every 6 hours (4 times daily) and ibuprofen 400 mg every 6 hours (4 times daily) as needed with food and water to prevent GI upset and kidney damage. Clinical Impressions Clinical Impression: Migraine Qualifiers: Migraine type: other Status migrainosus presence: with status migrainosus Intractability: not intractable Qualified Code(s): G43.801 - Other migraine, not intractable, with status migrainosus Print Language Print Language: Chinese Discharge ED Provider: Luis Miguel Martinez General Adult HPI General Chief complaint: Headache Stated complaint: high blood pressure, headaches Time Seen by Provider: 09/05/24 21:31 Mode of Arrival: Ambulatory Source of Information: Patient Description of Symptoms (Recalled from ER Triage Doc. by RN): patient c/o having headache for the last 3 days. took BP at home and was 150/100. patient stated she has taken BP medication post about a year ago but has since been taken off of it. History of Present Illness HPI narrative: Please note that above description of symptoms, in this electronic medical record under categorization of recalled from ER triage doctor by RN are reflective of an initial nursing assessment, however, is not reflective of my full history and physical exam that was personally taken and clarified. Consequentially, this preceding description of symptoms, which may include the patient's categorized chief complaint in the EMR, do not reflect my personal clinical impression, and the ultimate description of history of present illness and patient stated complaints should be deferred to this section of the note. Unless stated otherwise or congruent with this section of the note, additional signs, symptoms, or incongruence should be interpreted as inaccurate with my clinical impression. Related Data Previous Rx's ?Medication ?Instructions ?Recorded ondansetron 4 mg disintegrating 4 mg PO Q8H PRN Nausea #20 tabs 06/28/24 tablet promethazine 25 mg rectal 25 mg MO Q6H PRN nausea and 06/28/24 suppository vomiting #12 ea Allergies Allergy/AdvReac Type Severity Reaction Status Date / Time erythromycin base Allergy Unknown Verified 04/11/24 08:31 (ERYTHROMYCIN BASE) sulfamethoxazole (From Allergy Verified 04/11/24 08:31 Bactrim) trimethoprim (From Bactrim) Allergy Verified 04/11/24 08:[id number] Dis[facility]: The information contained in this section may have been updated after the patient was seen, as this information can be updated by other users. 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 (Updated 09/05/24 @ 23:48 by Luis Miguel Martinez MD) Sinusitis Serotonin syndrome Acute middle ear effusion Fingertip amputation UTI (urinary tract infection) UTI (urinary tract infection) Depression Anxiety Migraine Asthma Laryngitis Pharyngitis Gastroenteritis Upper respiratory tract infection Surgical History History of section Social History Smoking Status: Never smoker second hand exposure: No alcohol intake: never current occupational status: other Travel in the last 8 weeks: None household members: spouse housing: house current occupational exposures/hazards: No caffeine: No Have you lived/traveled outside [place] in past 30 days?: No Contact w/someone who lives/traveled outside [place] past 30 days?: No Exposure to someone with infectious disease in past 14 days?: No Do you have a fever (greater than 100.4 F or 38 C)?: No Have you tested positive for COVID-19: No Exposed to someone with COVID-19 in past 14 days?: No Do you have a sore throat?: No Do you have a cough?: No Do you have any weakness?: No Do you have any diarrhea?: No Are you experiencing any unusual bleeding?: No Do you have any muscle aches/pain?: No Do you have any abdominal pain?: No Are you experiencing loss of taste or smell?: No Other 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 Have you received the Flu Vaccine for this season: No Have you received the Pneumonia Vaccine: No ROS Obtained: Yes All systems reviewed & no additional complaints except as documented Physical Exam General General appearance: alert and in no apparent distress Head Head exam: atraumatic and normocephalic Eye Eye exam: Present normal appearance, PERRL and EOMI Neck Neck exam: Present normal inspection, full ROM and trachea midline Respiratory Respiratory exam: Absent respiratory distress, wheezes, stridor, accessory muscle use or prolonged expiratory phase Cardiovascular Cardiovascular exam: Present other (Pulses equal symmetric in upper and lower extremities) Abdominal Exam Abdominal exam: Present soft; Absent distention, tenderness or pulsatile mass Extremities Exam Extremities exam: Absent edema Neurological Exam Neurological exam: Present alert, oriented X3 and CN II-XII intact; Absent motor sensory deficit Skin Skin exam: Present warm and dry; Absent diaphoresis or erythema Medical Decision Making Medical Records Medical records reviewed: Yes I reviewed the patient's medical records. Screening: Per USPSTF and CDC recommendations, given the prevalence of disease in our region, it is our hospital?s policy to screen for HIV and viral Hepatitis for all patients aged 18 and over and those with ongoing risk factors. [place]han Inquiry Pt receiving controlled substance: No Abrahan was queried for this patient: No Vital Signs: 09/05/24 21:13 09/05/24 22:00 09/05/24 22:30 Temperature 98.1 F Temperature Source Oral Pulse Rate 71 72 Pulse Rate [Left] 76 Respiratory Rate 16 20 21 Blood Pressure 158/98 H 158/98 H Blood Pressure [Right Arm] 184/100 H Blood Pressure Mean 120 Blood Pressure Mean [Right Arm] 128 Blood Pressure Source [Right Arm] Automatic Cuff Blood Pressure Position [Right Arm] Sitting 02 Sat by Pulse Oximetry 100 99 100 Oxygen Delivery Method Room Air Room Air Room Air 09/05/24 23:00 09/05/24 23:30 Temperature Temperature Source Pulse Rate 78 79 Pulse Rate [Left] Respiratory Rate 18 13 Blood Pressure 146/90 H 130/76 Blood Pressure [Right Arm] Blood Pressure Mean Blood Pressure Mean [Right Arm] Blood Pressure Source [Right Arm] Blood Pressure Position [Right Arm] 02 Sat by Pulse Oximetry 100 99 Oxygen Delivery Method Orders (Tests/Meds): ED MEDICATIONS Discontinued Medications Generic Name Dose Route Start Last Admin Trade Name Freq PRN Reason Stop Dose Admin Acetaminophen 1,000 mg 09/05/24 21:52 09/05/24 22:49 Acetaminophen 1,000mg/100ml Vial IV 09/05/24 21:53 1,000 mg ONCE ONE Administration Dexamethasone 10 mg 09/05/24 21:52 09/05/24 22:49 Dexamethasone 4mg Tablet PO 09/05/24 21:53 10 mg ONCE ONE Administration Diphenhydramine HCl 25 mg 09/05/24 21:52 09/05/24 22:50 Diphenhydramine 50mg/Ml Vial IV 09/05/24 21:53 25 mg ONCE ONE Administration Magnesium Sulfate 2 gm in 50 mls @ 50 mls/hr 09/05/24 21:52 09/05/24 22:50 Magnesium Sulfate 2gm/50ml Premix IV 09/05/24 22:51 50 mls/hr ONCE ONE Administration Ketorolac Tromethamine 15 mg 09/05/24 21:52 09/05/24 22:50 Ketorolac 30mg/Ml Vial IV 09/05/24 21:53 15 mg ONCE ONE Administration Metoclopramide HCl 10 mg 09/05/24 21:52 09/05/24 22:50 Metoclopramide Hcl 10mg/2ml Vial IVP 09/05/24 21:53 10 mg ONCE ONE Administration Medical Decision Narrative: 34-year-old female presenting with headache. Headache started 2 or 3 days ago, has progressively gotten worse. It is mostly right-sided, radiates down her neck. No vision changes, neurologic deficits. She has tried acetaminophen, NSAIDs, caffeine, only the caffeine seems to help. No trauma to the area, or any other concerning signs or symptoms. Is not positional, not associated with swelling, no confusion, altered mental status, etc. History was obtained via conversation with patient. On arrival, patient hemodynamically stable, alert, oriented x4, appropriate, GCS 15, moving all extremities spontaneously, pupils equal and reactive to light. Full physical exam performed and significant for clinically well-appearing 34-year-old female who is sitting in dark room. States that she is having more phonophobia than photophobia. Visual acuity grossly intact, per report from patient. Differential includes migraine, headache, less likely be intracranial mass, intracranial bleed, among others. Patient placed on continuous cardiac monitoring and continuous pulse ox with initial blood pressure 184/100, heart rate 76, saturation 100% on room air. Patient was given migraine cocktail for symptomatic management and correction of underlying abnormalities. Patient was placed in observation beginning at 10 PM in order to give meds, reassess and determine need for admission versus home-going. The patient was provided meds and serial exams while awaiting results. Provided meds and reevaluation. On reevaluation, patient states she is feeling much better ready to go home. At this time, I feel patient is appropriate for discharge. Total observation time 2 hours. Because patient at baseline without signs or symptoms of clinical decompensation, deemed appropriate for discharge. Results were relayed to patient who voiced understanding and were agreeable to outpatient management and follow up. I discussed my clinical impression with patient and answered all questions. At this time, the evidence for any other entities in the differential is insufficient to warrant any further testing or ED observation. This was explained as well. Advisory was given that persistent or worsening symptoms require further evaluation. I confirmed the understanding of this discussion. Physical Security Manager disclaimer Much of this encounter note is an electronic food preparation supervisor spoken language to printed text. Electronic food preparation supervisor of the spoken language may permit errors. Although I have reviewed the note, some errors may still exist. Critical Care Critical Care Time Critical Care Time: No
[2024-09-05 22:00] VITALS: BP 158/98; PULSE 71; RESP 20; O2SAT 99
[2024-09-05 22:30] VITALS: BP 158/98; PULSE 72; RESP 21; O2SAT 100
[2024-09-05] MEDS: DEXAMETHASONE 4MG TABLET 10 MG PO (22:49)
[2024-09-05] MEDS: ACETAMINOPHEN 1,000MG/100ML VIAL 1000 MG IV (22:49)
[2024-09-05] MEDS: diphenhydrAMINE 50MG/ML VIAL 25 MG IV (22:50)
[2024-09-05] MEDS: MAGNESIUM SULFATE IN WATER 2 GM/50 ML PIGGYBACK IV (22:50)
[2024-09-05] MEDS: METOCLOPRAMIDE HCL 10MG/2ML VIAL 10 MG IVP (22:50)
[2024-09-05] MEDS: KETOROLAC 30MG/ML VIAL 15 MG IV (22:50)
[2024-09-05 23:00] VITALS: BP 146/90; PULSE 78; RESP 18; O2SAT 100
[2024-09-05 23:30] VITALS: BP 130/76; PULSE 79; RESP 13; O2SAT 99
[2024-09-06 00:02] VITALS: BP 130/76; PULSE 79; RESP 15; TEMP 36.8; O2SAT 99
--- OUTSIDE RECORDS SUMMARY | 2024-09-06 22:32 | XMS_ITS | Data Portability ---
Author Organization [facility] YOANA Rogers GLEN ALLAN CLOSED Address [address] [facility] [address] [place] [address] Assessment No assessment recorded. Plan of Treatment Reminders Order Date Submit Date Provider Last Modified By Organization Details Last Modified Time Details Appointments None recorded. Lab urinalysis, dipstick 2021 [email or web address] Not available 14:11:34 urinalysis, microscopic 2021 [facility], [address] [place] [address], [phone], 19:02:45 TSH, serum or plasma 2020 021 [facility], [address] [place] [address], [phone], 12:53:55 CBC w/ auto diff 2020 021 [facility], [address] [place] [address], [address], 1 12:36:11 CMP, serum or plasma 2020 021 [facility], [address] [place] [address], [address], 12:48:13 Referral neurologist referral 2021 [facility], [address] [place] [address], [address], 2 08:20:49 Procedures None recorded. Surgeries None recorded. Imaging US, doppler echocardiog suresh, w/ color flow 2021 022 [email or web address] [facility], [address], [place], [address], 08:20:50 unlisted imaging order 2021 022 [email or web address] [facility] Radiology [facility], [address] [facility], [place], [address], 2 07:48:00 electrocard iogram 2020 021 [email or web address] [facility] [place], [address] [facility], [place], [address], 16:09:34 Medication Orders Cipro 500 mg tablet 2021 022 JHONATHAN [facility], [address], [id number], 14:21:51 Contrave 8 mg-90 mg tablet,exte nded release 2021 022 [email or web address] 5 [facility], [address], [id number], 2 14:04:34 Relpax 40 mg tablet 2021 022 5 [facility] #32935, [address], [id number], 14:03:50 Contrave 8 mg-90 mg tablet,exte nded release 2020 021 [email or web address] 5 [facility], [address], [phone], 14:04:34 fluoxetine 20 mg capsule 2020 021 [address], [address] [place], [id number], 11:53:53 sertraline 50 mg tablet 2020 021 [address], [address] [place], [id number], 11:54:01 Patient TargetsNo targets recorded. Patient Instructions Encounter Date Encounter Id Patient Instructions Last Modified By Organization Details Last Modified Time 03/16/2021 [id number] Body Mass Index: Care Instructions-[place] [address] Not available 03/16/2021 10:16:07 07/29/2021 [id number] Heart Station Patient Instructions [email or web address] Not available 07/29/2021 12:26:34 Body Mass Index: [facility] Not available 07/29/2021 12:44:29 eating healthy foods: care instructions [place] [address] Not available 07/29/2021 12:44:48 05/03/2022 [id number] -further treatment plan pending lab results -Rest, fluids, take medications as prescribed, hiqt-pmf-rzyghgh symptom relief medications as needed -Return to the clinic, ER or see PCP if symptoms worsen or do not improve as expected [email or web address] Not available 05/03/2022 14:23:16 Reason for Referral Neurologist Referral for Max cabna with charliea Referring Physician: Sofia Michelle, Family Medicine, Encounter Date: 07/29/2021 Results Created Date Observation Date Name Description Value Unit Range Abnormal Flag Note LastModifiedBy Organization Detail LastModifiedTime 02/13/20 21 02/12/2021 COMPL ETE BLOOD COUNT white blood cells 4.7 K/uL 3.8-10 .8 normal Not Available [facility] Laboratory [facility] [place], [address], 02/12/2021 12:36:11 02/13/20 21 02/12/2021 COMPL ETE BLOOD COUNT red blood cells 4.60 M/uL 3.80-5 .20 normal Not Available [facility] Laboratory [address] [place] [address], [address], 02/12/2021 12:36:11 02/13/20 21 02/12/2021 COMPL ETE BLOOD COUNT hemoglobin 12.4 g/dL 12.0-1 6.0 normal Not Available [facility] [address] [place] [address], [address], 02/12/2021 12:36:11 02/13/2002/12/2021 COMPL ETE BLOOD COUNT hematocrit 37.5 % 35.0-4 7.0 normal Not Available [facility] [address] [place] [address], [address], 02/12/2021 12:36:11 02/13/20 21 02/12/2021 COMPL ETE BLOOD COUNT MCV 82 fL 80-100 normal Not Available [facility] [address] [place] [address], [address], 02/12/2021 12:36:11 02/13/2002/12/2021 COMPL ETE BLOOD COUNT MCH 27 pg 26-35 normal Not Available [facility] [address] [place] [address], [address], 02/12/2021 12:36:11 02/13/2002/12/2021 COMPL ETE BLOOD COUNT MCHC 33 g/dL 32-36 normal Not Available [facility] [address] [place] [address], [address], 02/12/2021 12:36:11 02/13/20 21 02/12/2021 COMPL ETE BLOOD COUNT RDW 12.7 % 11.0-1 5.0 normal Not Available [facility] [address] [place] [address], [address], 02/12/2021 12:36:11 02/13/20 21 02/12/2021 COMPL ETE BLOOD COUNT MPV 9.4 fL 6.2-10 .5 normal Not Available [facility] Laboratory [address] [place] [address], [address], 02/12/2021 12:36:11 02/13/20 21 02/12/2021 COMPL ETE BLOOD COUNT platelet count 243 K/uL 130-40 0 normal Not Available [facility] [address] [place] [address], [address], 02/12/2021 12:36:11 02/13/2002/12/2021 COMPL ETE BLOOD COUNT neutrophil,a bsolute 2.5 K/uL 1.6-8. 4 normal Not Available [facility] [address] [place] [address], [address], 02/12/2021 12:36:11 02/13/20 21 02/12/2021 COMPL ETE BLOOD COUNT lymphocyte,a bsolute 1.7 K/uL 0.4-5. 1 normal Not Available [facility] [address] [place] [address], [address], 02/12/2021 12:36:11 02/13/20 21 02/12/2021 COMPL ETE BLOOD COUNT monocyte,abs olute 0.3 K/uL 0.0-1. 2 normal Not Available [facility] [address] [place] [address], [address], 02/12/2021 12:36:11 02/13/20 21 02/12/2021 COMPL ETE BLOOD COUNT eosinophil,a bsolute 0.1 K/uL 0.0-0. 8 normal Not Available [facility] [address] [place] [address], [address], 02/12/2021 12:36:11 02/13/20 21 02/12/2021 COMPL ETE BLOOD COUNT basophil,abs olute 0.1 K/uL 0.0-0. 3 normal Not Available [facility] [address] [place] [address], [address], 02/12/2021 12:36:11 02/13/2002/12/2021 COMPL ETE BLOOD COUNT % neutrophils 53.6 % 42.0-7 8.0 normal Not Available [facility] [address] [place] [address], [address], 02/12/2021 12:36:11 02/13/2002/12/2021 COMPL ETE BLOOD COUNT % lymphocytes 36.0 % 11.0-4 7.0 normal Not Available [facility] [address] [place] [address], [address], 02/12/2021 12:36:02/13/2002/12/2021 COMPL ETE BLOOD COUNT % monocytes 7.1 % 0.0-11 .0 normal Not Available [facility] [address] [place] [address], [address], 02/12/2021 12:36:02/13/2002/12/2021 COMPL ETE BLOOD COUNT % eosinophils 2.2 % 0.0-7. 0 normal Not Available [facility] [address] [place] [address], [address], 02/12/2021 12:36:02/13/2002/12/2021 COMPL ETE BLOOD COUNT % basophils 1.1 % 0.0-3. 0 normal Not Available [facility] [address] [place] [address], [address], 02/12/2021 12:36:02/13/2002/12/2021 COMPL ETE BLOOD COUNT nucleated red cells 0.1 % 0.0-0. 9 normal Not Available [facility] [address] [place] [address], [address], 02/12/2021 12:36:02/13/202021 COMPL ETE BLOOD COUNT nucleated RBCs, absolute 0.00 K/uL not estab. normal Not Available [facility] [address] [place] [address], [address], 02/12/2021 12:36:11 02/13/20 21 02/12/2021 COMP. METAB OLIC PANEL glucose 92 mg/dL 74-100 normal Not Available [facility] [address] [place] [address], [address], 02/12/2021 12:48:13 02/13/20 21 02/12/2021 COMP. METAB OLIC PANEL blood urea nitrogen 10 mg/dL 6-20 normal Not Available [facility] [address] [place] [address], [address], 02/12/2021 12:48:13 02/13/20 21 02/12/2021 COMP. METAB OLIC PANEL creatinine 0.73 mg/dL 0.50-0 .95 normal Not Available [facility] [address] [place] [address], [address], 02/12/2021 12:48:13 02/13/20 21 02/12/2021 COMP. METAB OLIC PANEL BUN/creatini ne ratio 14 (calc ) 10-20 normal Not Available [facility] [address] [place] [address], [address], 02/12/2021 12:48:13 02/13/20 21 02/12/2021 COMP. METAB OLIC PANEL sodium 139 mmol/ L 136-14 5 normal Not Available [facility] [address] [place] [address], [address], 02/12/2021 12:48:13 02/13/20 21 02/12/2021 COMP. METAB OLIC PANEL potassium 4.5 mmol/ L 3.4-5. 0 normal Not Available [facility] [address] [place] [address], [address], 02/12/2021 12:48:13 02/13/20 21 02/12/2021 COMP. METAB OLIC PANEL chloride 103 mmol/ L 98-107 normal Not Available [facility] [address] [place] [address], [address], 02/12/2021 12:48:13 02/13/20 21 02/12/2021 COMP. METAB OLIC PANEL carbon dioxide 25 mmol/ L 22-31 normal Not Available [facility] [address] [place] [address], [address], 02/12/2021 12:48:13 02/13/20 21 02/12/2021 COMP. METAB OLIC PANEL anion gap 11 (calc ) 7-25 normal Not Available [facility] [address] [place] [address], [address], 02/12/2021 12:48:13 02/13/20 21 02/12/2021 COMP. METAB OLIC PANEL calcium 9.0 mg/dL 8.6-10 .2 normal Not Available [facility] [address] [place] [address], [address], 02/12/2021 12:48:13 02/13/20 21 02/12/2021 COMP. METAB OLIC PANEL total protein 7.2 g/dL 6.4-8. 3 normal Not Available [facility] [address] [place] [address], [address], 02/12/2021 12:48:13 02/13/20 21 02/12/2021 COMP. METAB OLIC PANEL albumin 4.6 g/dL 3.5-5. 2 normal Not Available [facility] [address] [place] [address], [address], 02/12/2021 12:48:13 02/13/20 21 02/12/2021 COMP. METAB OLIC PANEL globulin 2.6 g/dL_ (calc ) 1.5-4. 5 normal Not Available [facility] [address] [place] [address], [address], 02/12/2021 12:48:13 02/13/20 21 02/12/2021 COMP. METAB OLIC PANEL albumin/glob ulin ratio 1.8 (calc ) 1.1-2. 5 normal Not Available [facility] [address] [place] [address], [address], 02/12/2021 12:48:13 02/13/20 21 02/12/2021 COMP. METAB OLIC PANEL bilirubin, total 0.4 mg/dL 0.1-1. 2 normal Not Available [facility] [address] [place] [address], [address], 02/12/2021 12:48:13 02/13/20 21 02/12/2021 COMP. METAB OLIC PANEL alkaline phosphatase 41 U/L 35-106 normal Not Available [facility] [address] [place] [address], [address], 02/12/2021 12:48:13 02/13/20 21 02/12/2021 COMP. METAB OLIC PANEL AST 15 U/L 0-32 normal Not Available [facility] [address] [place] [address], [address], 02/12/2021 12:48:13 02/13/20 21 02/12/2021 COMP. METAB OLIC PANEL ALT 13 U/L 0-33 normal Not Available [facility] [address] [place] [address], [address], 02/12/2021 12:48:13 02/13/20 21 02/12/2021 COMP. METAB OLIC PANEL GFR 126 >= 60 normal Not Available [facility] [address] [place] [address], [address], 02/12/2021 12:48:13 02/13/20 21 02/12/2021 COMP. METAB OLIC PANEL GFR non- 109 >= 60 normal NOT E Chron ic kidne y disea se is defin ed as kidne y damag e for more than 3 month s or a GFR less than 60 mL/mi n/1.7 3 m2 for great er than 3 month s. This calcu latio n has not been valid ated in pregn ant women . For pedia balta patie nts refer to Yaneth Dixonmanny y Found ation https ://ayo w.lili bryanty.o rg/pr ofess ional s/KDO QI/gf r_cal culat orPed Not Available [facility] [address] [place] [address], [address], 02/12/2021 12:48:13 02/13/20 21 02/12/2021 TSH TSH 1.570 uIU/m L 0.270- 4.200 normal Not Available [facility] [address] [place] [address], [address], 02/12/2021 12:53:55 05/03/20 22 05/03/2022 UA MICRO SCOPI C, CULTU RE IF INDIC ATED WBC, urine 10-20 0-5/hp f abnormal Not Available [facility] [address] [place] [address], [address], 05/03/2022 19:02:45 05/03/20 22 05/03/2022 UA MICRO SCOPI C, CULTU RE IF INDIC ATED RBC, urine Rare 0-2/hp f normal Not Available [facility] [address] [place] [address], [address], 05/03/2022 19:02:45 05/03/20 22 05/03/2022 UA MICRO SCOPI C, CULTU RE IF INDIC ATED squamous epi. cells > 10 0-5/hp f abnormal Not Available [facility] [address] [place] [address], [address], 05/03/2022 19:02:45 05/03/20 22 05/03/2022 UA MICRO SCOPI C, CULTU RE IF INDIC ATED bacteria Trace /hpf normal Not Available [facility] [address] [place] [address], [address], 05/03/2022 19:02:45 05/03/20 22 05/03/2022 UA MICRO SCOPI C, CULTU RE IF INDIC ATED reflex culture see below normal UA resul ts do not meet cultu re crite katty. Not Available [facility] [address] [place], [address], 05/03/2022 19:02:45 05/03/20 22 05/03/2022 urina lysis , dipst ick Unknown Analyte Gratiot Not Available [facility] [place] [address] [place] [address], [address], 05/03/2022 14:03:14 05/03/20 22 05/03/2022 urina lysis , dipst ick Unknown Analyte Hazy Not Available [facility] [place] [address] [place] [address], [address], 05/03/2022 14:03:14 05/03/20 22 05/03/2022 urina lysis , dipst ick Unknown Analyte 1.015 Not Available [facility] [place], [address], 05/03/2022 14:03:14 05/03/20 22 05/03/2022 urina lysis , dipst ick Unknown Analyte 1.003 - 1.035 Not Available [facility] [place] [address] [place] [address], [address], 05/03/2022 14:03:14 05/03/20 22 05/03/2022 urina lysis , dipst ick Unknown Analyte 6.5 Not Available [facility] [place] [address] [place] [address], [address], 05/03/2022 14:03:14 05/03/20 22 05/03/2022 urina lysis , dipst ick Unknown Analyte 5.0 - 8.0 Not Available [facility] [place] [address] [place], [address], 05/03/2022 14:03:14 05/03/20 22 05/03/2022 urina lysis , dipst ick Unknown Analyte 75 Penelope/ul (+) Not Available [facility] [place] [address] [place], [address], 05/03/2022 14:03:14 05/03/20 22 05/03/2022 urina lysis , dipst ick Unknown Analyte Negati ve Not Available [facility] [place] [address] [place], [address], 05/03/2022 14:03:14 05/03/20 22 05/03/2022 urina lysis , dipst ick Unknown Analyte Positi ve Not Available [facility] [place] [address] [place] [address], [address], 05/03/2022 14:03:14 05/03/20 22 05/03/2022 urina lysis , dipst ick Unknown Analyte Negati ve Not Available [facility] [address] [place], [address], 05/03/2022 14:03:14 05/03/20 22 05/03/2022 urina lysis , dipst ick Unknown Analyte 100 mg/dl (++) Not Available [facility] [address] [place], [address], 05/03/2022 14:03:14 05/03/20 22 05/03/2022 urina lysis , dipst ick Unknown Analyte Negati ve - Trace Not Available [facility] [address] [place] [address], [address], 05/03/2022 14:03:14 05/03/20 22 05/03/2022 urina lysis , dipst ick Unknown Analyte Normal Not Available [facility] [place] [address] [place], [address], 05/03/2022 14:03:14 05/03/20 22 05/03/2022 urina lysis , dipst ick Unknown Analyte Normal Not Available [facility] [place] [address] [place], [address], 05/03/2022 14:03:14 05/03/20 22 05/03/2022 urina lysis , dipst ick Unknown Analyte 50 mg/dl (Mod) Not Available [facility] [place] [address] [place] [address], [address], 05/03/2022 14:03:14 05/03/20 22 05/03/2022 urina lysis , dipst ick Unknown Analyte Negati ve Not Available [facility] [place] [address] [place] [address], [address], 05/03/2022 14:03:14 05/03/20 22 05/03/2022 urina lysis , dipst ick Unknown Analyte 4 mg/dl Not Available [facility] [place] [address] [place] [address], [address], 05/03/2022 14:03:14 05/03/20 22 05/03/2022 urina lysis , dipst ick Unknown Analyte Normal - 1mg/dl Not Available [facility] [place] [address] [place] [address], [address], 05/03/2022 14:03:14 05/03/20 22 05/03/2022 urina lysis , dipst ick Unknown Analyte 3 mg/dl (++) Not Available [facility] [address] [place], [address], 05/03/2022 14:03:14 05/03/20 22 05/03/2022 urina lysis , dipst ick Unknown Analyte Negati ve Not Available [facility] [place] [address] [place], [address], 05/03/2022 14:03:14 05/03/20 22 05/03/2022 urina lysis , dipst ick Unknown Analyte Negati ve Not Available [facility] [place] [address] [place], [address], 05/03/2022 14:03:14 05/03/20 22 05/03/2022 urina lysis , dipst ick Unknown Analyte Negati ve Not Available [facility] [address] [place], [address], 05/03/2022 14:03:14 05/03/20 22 05/03/2022 urina lysis , dipst ick Unknown Analyte Clean Catch Not Available [facility] [address] [place], [address], 05/03/2022 14:03:14 05/03/20 22 05/03/2022 urina lysis , dipst ick Unknown Analyte Automa sohail Not Available [facility] [address] [place] [address], [address], 05/03/2022 14:03:14 02/13/20 21 02/12/2021 elect shruthi brushgr am No observ ation record ed. [email or web address] [facility] [place] [address] [place], [address], 02/12/2021 16:48:14 02/18/20 21 02/12/2021 elect shruthi diogr am No observ ation record ed. [email or web address] [facility] [place] [address] [facility], [place], [address], 02/17/2021 11:44:09 08/01/19 22 07/31/2021 US, doppl er echoc ardio gram, w/ color flow No observ ation record ed. owood Clark Arevalo MD [address], [place], [address], 08/03/2021 14:00:07 08/06/19 22 07/29/2021 elect roctony diogr am No observ ation record ed. BARCODE Not Available 2021 10:49:17 08/06/19 22 08/05/2021 MRI, brain , w/wo contr ast [place] [address] [place] [address] Keith zamudio Name: MONAE zamudio : [id number] Keith t Orderi ng Provid er: SOFIA MICHELLE EXAM DATE: 2021 EXAM: MR BRAIN W/WO CONTRA ST HISTOR Y: 31-yea r-old female with migrai ne headac hes and visual change s. COMPAR TRINH: None. The patien t did not requir e sedati on for this exam. No POC testin g for eGFR was perfor med due to absenc e of risk factor s. FINDIN GS: The ventri cles are symmet lesia, and normal in size. There is no mass, mass effect , or midlin e shift. There is no abnorm al extra- axial fluid, intrac ranial hemorr herminia, or infarc tion. The diffus ion weight ed sequen seth are normal . There are no perive ntricu lar white matter change s. After intrav enous admini strati on of 7.[address] ([facility] [address]-0 1), there is no abnorm al enhanc ement in the brain. The qa internship al caroti d and basila r flow-v oids are normal . There is minima l mucosa l thicke ashwin in the parana laura sinuse s. IMPRES THELMA: 1. The brain is normal in appear ance. Interp reted By: Samuel suarez MD Electr onical ly Signed By: Samuel suarez MD on 08/06/19 22 11:38 AM [facility] Radiology [address], [address], 08/06/2021 14:56:08 Result Notes None recorded. Problems Name Problem SNOMED Code Status Onset Date Resolution Date Notes Provider Name and Address Organization Details Recorded Time Soft tissue lesion Completed 201503/16/2021 From [employer];Pro vider: Valarie Hurt;St atus: Active SOFIA MICHELLE MD [address] [place] [address], [address] [place] [address] 10:07:26 Melanocy tic nevus of trunk 987232088 Active 2015 From [employer];Pro vider: Valarie Hurt;St atus: Active Not Available [facility] 6 11:54:36 Immuniza tion due 638397692 Completed 202003/16/2021 SOFIA MICHELLE MD [address] [place] [address], [address] [place] [address] 10:07:31 Atypical chest pain 666392061 Active 2020 SOFIA MICHELLE MD [address] [place] [address], [address] [place] [address] 1 09:46:47 Mixed anxiety and depressi ve disorder 418055377 Active 2020 SOFIA MICHELLE MD [address] [place] [address], [address] [place] [address] 1 12:40:12 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 Procedures Surgical History Date Name Laterality Status Provider Name and Address Organization Details Recorded Time 08/01/19 22 Bubbles Echocardiogram completed CLARK AREVALO MD [address] [place] [address], [address], [facility] 07/31/2021 11:39:08 delivery completed Elena Stevens [facility] 04/18/2018 09:12:56 [place] Teeth Extraction completed SOFIA MICHELLE MD [address] [place] [address], [address], [facility] 02/12/2021 12:35:38 Imaging Results Imaging Date Name Status LastModified by Organization Details LastModified Time 02/12/2021 electrocardiogram [facility] [address], [address], 02/12/2021 16:48:14 02/12/2021 electrocardiogram completed lucie Gracet on [address], [address], 02/17/2021 11:44:09 07/31/2021 US, doppler echocardiogram, w/ color flow completed charlette Arevalo MD [address], [place], [address], 08/03/2021 14:00:07 07/29/2021 electrocardiogram completed BARCODE Informa tion not available 08/05/2021 10:49:17 08/05/2021 MRI, brain, w/wo contrast completed [facility] [address] [place], [place], [address], 08/06/2021 14:56:08 Procedure Notes None recorded. Medical Equipment None Reported. Allergies Allergen ID Allergen Name Allergen Category Reaction Reaction Severity Criticality Documentation Date Start Date Code Code System Note Provider Name and Address Organization Details Recorded Time 474289 Substance with sulfonami de structure and antibacte rial mechanism of action (substanc e) medicatio n Not available Not available Not available 04/22/20162007 75323 8003 SNOMED Leads to yeast infec tion and bacte rial vagin osis. ELVIS FUENTES PA-C [address] [place], [address], [facility] 14:21:19 553675 erythromy norris ethylsucc inate medicatio n Not available Not available Not available 04/23/20162007 4056 RxNorm Comme nt: per pt;Cr eated By: Samir Darden ed Date: 008 11:20 :26 AM; Not Available [facility] 6 04:35:23 Medications Name Sig Start Date Stop Date Status Note LastModified by Organization Details LastModified Time promethaz ine-DM 6.25 mg-15 mg/5 mL oral syrup 02/12 completed Not Available Not Available Not Available trazodone 50 mg tablet TAKE 1/2 TABLET BY MOUTH EVERY DAY. NEED APPT BEFORE NEXT REFILL 05/03 completed Not Available Not Available Not Available azithromy norris 250 mg tablet 05/03 completed Not Available Not Available Not Available phenazopy ridine 200 mg tablet 05/03 completed Not Available Not Available Not Available prednison e 20 mg tablet TAKE 1 TABLET BY MOUTH TWICE DAILY 07/29 completed Not Available Not Available Not Available fluoxetin e 10 mg tablet 02/12 completed Not Available Not Available Not Available phentermi ne 37.5 mg tablet 05/03 completed Not Available Not Available Not Available diethylpr opion ER 75 mg tablet,ex tended release TAKE 1 TABLET BY MOUTH EVERY DAY IN THE MID MORNING 05/03 completed Not Available Not Available Not Available ciproflox acin 500 mg tablet TAKE 1 TABLET BY MOUTH EVERY 12 HOURS WITH MEALS FOR 5 DAYS active Not Available Not Available No t Available amoxicill in 500 mg tablet TAKE 1 TABLET BY MOUTH TWICE DAILY FOR 10 DAYS 07/29 completed Not Available Not Available Not Available prednison e 10 mg tablets in a dose pack 02/12 completed Not Available Not Available Not Available cyprohept adine 4 mg tablet 02/12 completed Not Available Not Available Not Available benzonata te 100 mg capsule Take 2 capsules twice a day by oral route as needed for 5 days. 05/03 completed Not Available Not Available Not Available neomycin- polymyxin -dexameth 3.5 mg/mL-10, 000 unit/mL-0 .1% eye drops SHAKE LIQUID AND INSTILL 1 DROP IN RIGHT EYE FOUR TIMES DAILY 02/12 completed Not Available Not Available Not Available fluoxetin e 10 mg capsule 02/12 completed Not Available Not Available Not Available cefuroxim e axetil 500 mg tablet 02/12 completed Not Available Not Available Not Available levofloxa norris 500 mg tablet TAKE 1 TABLET BY MOUTH EVERY 24 HOURS FOR 5 DAYS active Not Available Not Available No t Available methylpre dnisolone 4 mg tablets in a dose pack FOLLOW PACKAGE DIRECTIO NS 05/03 completed Not Available Not Available Not Available brompheni ramine-ps eudoephed rine-DM 2 mg-30 mg-10 mg/5 mL oral syrup TAKE 5 ML BY MOUTH EVERY 6 HOURS NEEDED FOR COUGH 02/12 completed Not Available Not Available Not Available ondansetr on 4 mg disintegr ating tablet 05/03 completed Not Available Not Available Not Available cefdinir 300 mg capsule TAKE 1 CAPSULE BY MOUTH EVERY 12 HOURS FOR 14 DAYS 05/03 completed Not Available Not Available Not Available fluoxetin e 20 mg capsule Take 1 capsule every day by oral route. 07/29 completed Not Available Not Available Not Available sertralin e 50 mg tablet TAKE 1 TABLET BY MOUTH EVERY DAY 07/29 completed Not Available Not Available Not Available amoxicill in 875 mg-potass ium clavulana te 125 mg tablet 02/12 completed Not Available Not Available Not Available Ventolin HFA 90 mcg/actua tion aerosol inhaler 02/12 completed Not Available Not Available Not Available Relpax 40 mg tablet Take 1 tablet as needed by oral route as directed . 05/03 completed Not Available Not Available Not Available metoprolo l tartrate 25 mg tablet 02/12 completed Not Available Not Available Not Available nitrofura ntoin monohydra te/macroc rystals 100 mg capsule TAKE 1 CAPSULE BY MOUTH TWICE DAILY FOR 7 DAYS 05/03 completed Not Available Not Available Not Available Prozac 02/12 completed Not Available Not Available Not Available trazodone 02/12 completed Not Available Not Available Not Available metoprolo l succinate 02/12 completed Not Available Not Available Not Available Vitamin 04/18 completed Medicati on Descript ion: multivit hutchison, ; Route:or al; refills: 0 Not Available Not Available Not Available Contrave 8 mg-90 mg tablet,ex tended release TAKE 2 TABLETS BY MOUTH TWICE DAILY 05/03 completed Not Available Not Available Not Available Flonase Allergy Relief 50 mcg/actua tion nasal spray,yuliya pension [place] 1 spray every day by intranas al route as directed for 14 days. 02/12 completed Not Available Not Available Not Available albuterol sulf 90 mcg/actua tion breath activated powder inhaler,s ensor Inhale 2 puffs every 4 hours by inhalati on route as needed. 05/03 completed Not Available Not Available Not Available Vitals Date Recorded Body weight Body temperature Heart rate Oxygen saturation Oxygen saturation in Arterial blood by Pulse oximetry Systolic blood pressure Diastolic blood pressure Provider Name and Address Organization Details Last Updated DateTime 48076.7 8 g 98 [degF] 90 /min 98 % 98 % 130 mm[Hg] 84 mm[Hg] [facility] 08:57:55 Date Recorded Body mass index (BMI) Body height Provider Name and Address Organization Details Last Updated DateTime 02/12/2021 27.5 kg/m2 162.56 cm SOFIA MICHELLE MD [address] [place], [address], [facility] 02/12/2021 09:46:01 Date Recorded Body height Provider Name an d Address Organization Details Last Updated DateTime 03/16/2021 162.56 cm Devin Wheatley [facility] 03/16/2021 09:32:20 Date Recorded Body mass index (BMI) Body weight Provider Name and Address Organization Details Last Updated DateTime 03/16/2021 27.5 kg/m2 48787.78 g SOFIA MICHELLE MD [address] [place], [address], [facility] 03/16/2021 10:11:22 Date Recorded Body height Body mass index (BMI) Body weight Heart rate Oxygen saturation Oxygen saturation in Arterial blood by Pulse oximetry Systolic blood pressure Diastolic blood pressure Provider Name and Address Organization Details Last Updated DateTime 162.56 cm 27.3 kg/m2 58384.1 9 g 73 /min 100 % 100 % 118 mm[Hg] 70 mm[Hg] Ronda Mai [facility] 2 11:53:17 Date Recorded Body height Body mass index (BMI) Body weight Heart rate Oxygen saturation Oxygen saturation in Arterial blood by Pulse oximetry Respiratory rate Body temperature Systolic blood pressure Diastolic blood pressure Provider Name and Address Organization Details Last Updated DateTime 162.56 cm 26.6 kg/m2 98515.8 2 g 66 /min 98 % 98 % 16 /min 97.5 [degF] 133 mm[Hg] 83 mm[Hg] Alfredo Rubio [facility] 2 14:07:31 Social History Question Answer Notes LastModified by Organizat ion Details LastModified Time What Is Your Level Of Alcohol Consumption? Occasional Information not available 04/18/2018 What Is Your Level Of Caffeine Consumption? Moderate Information not available 04/18/2018 How Much Tobacco Do You Chew? None Information not available 04/18/2018 Marital Status Informatio n not available 04/18/2018 What Was The Date Of Your Most Recent Tobacco Screening? 05/03/2022 [email or web address] Information not available 05/03/2022 How Much Tobacco Do You Smoke? No Information not available 04/18/2018 Do You Use Any Illicit Or Recreational Drugs? No Information not available 05/03/2022 Sex: Unknown Functional Status None recorded. Mental Status None recorded. Family History Relationship Description Onset Age of this Age Resolved Age Notes LastModified by Organization Details LastModified Time Unspecified Relation Hypertensive disorder Not available 2017 09:11:43 Unspecified Relation Asthma [email or web address] Not available 12:30:43 Unspecified Relation Malignant neoplastic disease [email or web address] Not available 2020 12:30:50 Unspecified Relation Diabetes mellitus [email or web address] Not available 2020 12:31:03 Unspecified Relation Hyperlipidem ia [email or web address] Not available 2020 12:31:58 Unspecified Relation Migraine [email or web address] Not available 02/13/20 12:32:44 Unspecified Relation Disorder of thyroid gland [email or web address] Not available 2020 12:32:51 Unspecified Relation Mental disorder [email or web address] Not available 2020 12:33:02 Maternal Grandfather Heart disease [email or web address] Not available 2020 09:43:38 Maternal Grandmother Family history of stroke Not available 2017 09:12:09 Paternal Grandfather Heart disease [email or web address] Not available 2020 09:43:43 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 Condition Response Anxiety Disorder Y Headaches Y Gynecological HistoryNo gynecological history recorded. Obstetrics History GPAL:G 0 P 0 0 0 0 Immunizations Vaccine Type Date Status Note Provider Nam e and Address Organization Details Recorded Time Influenza, split virus, quadrivalent, PF 02/12/2021 completed Devin Wheatley [facility] 02/12/2021 16:10:37 COVID-19, mRNA, LNP-S, PF, 30 mcg/0.3 mL dose 10/14/2020 completed Alfredo Rubio [facility] 05/03/2022 14:05:09 Hep B, adult 02/09/2011 completed Alfredo trujillo [facility] 05/03/2022 14:05:09 Tdap 02/11/2016 completed Alfredo Rubio [facility] 05/03/2022 14:05:09 Influenza, MDCK, quadrivalent, PF 04/13/2022 completed Alfredo Rubio [facility] 05/03/2022 14:05:09 COVID-19, mRNA, LNP-S, PF, 30 mcg/0.3 mL dose 11/04/2020 completed Alfredo Rubio [facility] 05/03/2022 14:05:09 Hep A, adult 02/12/2021 completed Alfredo trujillo [facility] 05/03/2022 14:05:09 Past Encounters Encounter ID Performer Location Encounter Start Date Encounter Closed Date Diagnosis/Indication Diagnosis SNOMED-CT Code Diagnosis ICD10 Code Diagnosis Note [id number] TIMMY VICTOR MD [facility] [address] [place] [address] 04/18/2018 09:05:25 04/18/2018 11:31:09 Upper respiratory infection 24406544 J06.9 R05 [id number] SOFIA MICHELLE MD [facility] [address] [place] [phone] 02/12/2021 08:39:34 02/12/2021 10:26:03 Mixed anxiety and depressive disorder 778254451 F41.8 Uncontroll ed. Weight gain on fluoxetine . Discontinu e fluoxetine and change to sertraline due to considerin g . Add Contrave for weight loss at next visit. 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 Advised to take trazodone prn Headache 18043661 R51.9 Monitor for improvemen t with change in medication . Atypical chest pain 1025 51225 R07.89 ?due to anxiety. EKG normal. Await blood work. Monitor symptoms once fluoxetine changed to sertraline . [id number] SOFIA MICHELLE MD [facility] [address] [place] [address] 03/16/2021 09:32:06 03/16/2021 10:35:04 Mixed anxiety and depressive disorder 328719898 F41.8 Stable. Continue fluoxetine 20mg daily. f/u 2months. Body mass index 25-29 - overweight 485459020 Z68.29 Acute bronchitis 0921268 2 J20.9 Improving with amoxil/pre dnisone/al buterol inhaler prn. [id number] SOFIA MICHELLE MD [facility] [address] [place] [address] 07/29/2021 11:14:47 08/03/2021 08:20:49 Transient visual loss 03935536 H53.121 with headaches during Covid: Most likely related to migraine, but ched ECHO for further evaluation per retinal specialist recommenda tion. Treat migraines with aspirin or Excedrin migraine/n saids or Relpax due to issues with Imitrex in past and schedule neurology evaluation . To call if symptoms worsen or do not resolve. Migraine with aura 59310 06 G43.109 Body mass index 25-29 - overweight 817272820 Z68.29 [id number] CLARK AREVALO MD [facility] [address] [place] [address] 07/31/2021 09:57:57 08/03/2021 08:36:02 Transient visual loss 59923523 H53.129 [id number] ELVIS FUENTES PA-C [facility] [address] [place] [address] 05/03/2022 13:53:57 05/03/2022 14:53:45 Acute urinary tract infection 257538790 N39.0 Risks and benefits of the new medication discussed with patient, along with reasonable alternativ es. Patient has voiced understand ing and is in agreement with treatment choice. Health Concerns Section Related Observation LastModified by Organization Detai ls LastModified Time None Recorded Concern Status LastModified by Organization Details LastModified Time None Recorded Advance Directives Directive None Recorded Payers Encounter Date Sequence Insurance Name Policy Number Policy Alfredo Covered Member ID Alfredo Member ID Guarantor Name 02/12/2021 1 [place] [employer] [place] [id number] Zacarias Brandon [id number] Monae Brandon 03/16/2021 1 [place] [id number] Zacarias Brandon [id number] 17 Monae Brandon 07/29/2021 1 [place] [id number] Zacarias Brandon [id number] 17 Monae Brandon 07/31/2021 1 [place] [id number] Zacarias Brandon [id number] 17 Monae Brandon 05/03/2022 1 [place] [id number] Zacarias Brandon [id number] Monae Brandon Notes Date Note Type Note Provider Name and Address Organization Details Recorded Time 02/12/2021 text/html Re-establish 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 Difficulty sleeping so she has been taking trazodone, but she has daytime drowsiness.. She started fluoxetine 20mg daily 3 years ago with weight gain. However, she feels calmer and does not cry as easily on medication. Still issues with headache around her scalp in AM, but this mostly occurs on stressful days. She has a 5 year old with speech delay and that caused increase stress, so she started medication. She is considering another next year. Denies SI/HI. Some issues with anterior chest pain at times with any position. ?due to anxiety. Denies other cv symptoms, cough, nasal congestion or palpitations. SOFIA MICHELLE MD [facility], [address], [facility] 02/12/2021 12:43:13 03/16/2021 text/html Anxiety/Depressi onRe ported bypatient.Quality:sy mptoms improved Severity:denies suicidal ideations; able to maintain relationships; does not interfere with activities of daily living Duration:stablizing Context:no major life stressors Modifying Factors:medications as directed Associated Symptoms:denies homicidal ideations; no significant weight gain; no significant weight loss; no visual/auditory hallucinations; no delusions; no shortness of breath; mood good; no anxiety; no crying spells; no panic; no isolation; sleeping well; appetite good; energy good; no apathy; maintaining functionality; Pt complained of delayed menses (by 8 days) when first taking this med. Pt also stated had one day of being emotional and tearful but subsided after one day.Notes:Son ill with rhinovirus and now she and her have symptoms. Treated with amoxil and prednisone with improvement in symptoms. Cough has improved and she is using albuterol prn. Doing well on Zoloft with only 1 day of side effects. No further issues with chest pain on Zoloft. Feels at baseline. She has not lost or gained weight on Zoloft, but would like to try Contrave noting that her sister has taken Contrave and tolerated/lost weight. Visit today is being conducted via telehealth using both audio/video. The patient confirms that he/she is physically located in [place] at the time of this visit. Patient expressed understanding of audio/video telehealth as a billable visit and has consented. Patient also expressed understanding that not every condition can be appropriately addressed via telehealth and that this telehealth visit may need to be converted to an in-person visit or may even result in a recommendation to go to the E.R. at the provider? s discretion in order to provide the best possible care. SOFIA MICHELLE MD [address] [place] [address], [phone], [facility] 03/16/2021 10:33:52 07/29/2021 text/html Partial visual l oss on 07/16 of right eye. 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 However, specialist recommended an ECHO with bubble to evaluate for embolic disease. Headaches with son with lateral flashings lights. No work-up for migraines in past. 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 Flashing lights in periphery prior to headaches in past. Photophobia/phonopho ana maria with headaches without N/VCovid positive on 07/07 with terrible headaches for 5 to 7 days and negative on 07/17. SOFIA MICHELLE MD [address] [place], [address], [facility] 08/02/2021 23:53:55 05/03/2022 text/html Pt is a 32yo who presents to same day clinic with c/o UTI. She reports going to outside [facility] on 05/[facility]/22 for similar Sx, was started on Macrobid. However, she has rec'd her urine Cx report that showed growth of E coli sensitive to Macrobid, but she is still not feeling better.Sx include abd cramping, dysuria, lower back pain.Sx started: 2Denies: fever, n/v, gross hematuria.Meds/tx tried: Macrobid 100mg, pyridiumPCP: Dr. Miguel Angel FUENTES, PA-C [address] [place], [address], [facility] 05/03/2022 14:23:49 OBGyn Episode No OBEpisode recorded.
== END 2024-09-05 23:57 | disposition home or self-care (01) ==
PROVIDERS: Emergency Provider Emergency Medicine; PCP Internal Medicine
DX: G43.801 Other migraine, not intractable, with status migrainosus (principal); R03.0 Elevated blood-pressure reading, without diagnosis of hypertension
CPT/HCPCS: 96365; 96375; 99284; J0131; J1200; J1885; J2765; J3475; J8540

== ENCOUNTER 2024-09-11 07:07 | Outpatient (CLI) | payer BC, SELFPAY ==
[2024-09-11 07:12] LABS: Anti-Centromere B Antibodies ND; Anti-DNA (DS) Ab Qn ND; Anti-Jo-1 ND; Antichromatin Antibodies ND; Antiscleroderma-70 Antibodies ND; RNP Antibodies ND; Sjogren's Anti-SS-A ND; Sjogren's Anti-SS-B ND
[2024-09-11 07:23] LABS: Basophils # 0.1 K/mm3 (0-0.2); Basophils % 1.1 % (0.1-2.0); Eosinophils # 0.2 K/mm3 (0.0-0.4); Eosinophils % 2.8 % (0.1-12.0); Hematocrit 39.7 % (37.0-47.0); Hemoglobin 12.6 g/dL (12.2-16.2); Lymphocytes # 2.1 K/mm3 (0.7-4.5); Mean Corpuscular HGB Conc 31.7 g/dL (31.8-35.4); Mean Corpuscular Hemoglobin 26.5 pg (27.0-31.2); Mean Corpuscular Volume 83.4 fl (81-99); Mean Platelet Volume 10.1 fl (7.4-10.4); Monocytes # 0.4 K/mm3 (0.1-1.0); Monocytes % 5.5 % (1.7-9.3); Neutrophils # 3.8 K/mm3 (1.8-7.8); Nucleated Red Blood Cells # 0 10^3/uL; Nucleated Red Blood Cells % 0 %; Platelet Count 322 K/mm3 (142-424); Red Blood Count 4.76 M/mm3 (4.20-5.40); Red Cell Distribution Width 13.1 % (11.5-17.5); Red Cell Distribution Width-SD 39.9 fL; White Blood Count 6.5 K/mm3 (4.8-10.8)
[2024-09-11 07:46] LABS: Albumin Level 4.3 g/dl (3.5-5.0); Chloride 105 mmol/L (98-107); Potassium 4.4 mmoL/L (3.5-5.1); Sodium 138 mmol/L (136-145)
[2024-09-11 07:48] LABS: Blood Urea Nitrogen 13 mg/dl (7-17); Estimated Glomerular Filt Rate 95 ml/min (>60); GFR (African American) 115 ML/MIN (>60)
[2024-09-11 07:49] LABS: Alanine Aminotransferase 17 U/L (12-78); Albumin/Globulin Ratio 1.5 (1.1-1.8); Alkaline Phosphatase 40 U/L (38-126); Anion Gap 10.4 mEq/L (5-15); Aspartate Amino Transferase 18 U/L (14-36); Bilirubin,Total 0.5 mg/dl (0.2-1.3); Calcium 8.8 mg/dl (8.4-10.2); Carbon Dioxide 27 mmol/L (22.0-30.0); Globulin 2.8 g/dL (1.3-3.2); Glucose 96 mg/dl (74-100); Magnesium 1.5 mg/dl (1.6-2.3); Total Protein,Serum 7.1 g/dl (6.3-8.2)
[2024-09-11 08:07] LABS: Free T4 (Free Thyroxine) 0.86 ng/dl (0.78-2.19)
[2024-09-11 08:09] LABS: Hemoglobin A1C 4.9 % (4.0-6.0)
[2024-09-11 08:21] LABS: Thyroid Stimulating Hormone 1.77 uIU/mL (0.465-4.68)
[2024-09-11 08:25] LABS: Ferritin 39.8 ng/ml (6.24-137)
[2024-09-11 08:45] LABS: 25-OH Vitamin D, Total 53.1 ng/mL (30-100)
[2024-09-11 10:20] LABS: Vitamin B12 331 pg/mL (239-931)
[2024-09-12 08:42] LABS: Triiodothyronine (T3) Free 2.8 pg/mL (2.0-4.4)
[2024-09-12 12:27] LABS: Antinuclear Antibodies (ANA) Negative (Negative)
[2024-09-12 13:17] LABS: Cortisol,AM 16.5 ug/dL (6.2-19.4)
== END 2024-09-11 23:59 | disposition home or self-care (01) ==
LOC: LAB 07:08
PROVIDERS: PCP Nurse Practitioner Family; Visit Provider Nurse Practitioner Family
DX: R42 Dizziness and giddiness (principal); G43.801 Other migraine, not intractable, with status migrainosus; Z68.24 Body mass index [BMI] 24.0-24.9, adult
CPT/HCPCS: 36415; 80053; 82306; 82533; 82607; 82728; 83036; 83735; 84439; 84443; 84481; 85025; 86038

== ENCOUNTER 2024-09-12 08:52 | Outpatient (CLI) | payer BC, SELFPAY ==
--- NOTE | 2024-09-12 09:00 | MR_ITS ---
FINAL REPORT TECHNIQUE: Multiplanar and multisequence imaging of the brain was obtained before and after contrast administration. CLINICAL HISTORY: Dizziness, headache, visual changes Bad migraine with headache 1 week ago that lasted several days COMPARISON: None FINDINGS: Brain parenchymal: There is no mass effect or midline shift. There are no areas of abnormal signal intensity.The cerebellum and brainstem are without acute abnormality. Ventricles: The ventricles are symmetric in size and configuration without hydrocephalus. Extra-axial spaces: No extra-axial fluid collections. Diffusion imaging: No areas of restricted diffusion to suggest acute infarct. Flow voids: Flow voids within the major intracranial vessels are preserved. Soft tissues: Soft tissues are without acute abnormality. Post contrast imaging: No abnormal enhancement. IMPRESSION: No acute intracranial abnormality and no pathologic contrast enhancement. Reviewed, Interpreted and Dictated by Micki Bahena MD Transcribed by Amberly Shannon Authenticated and [facility]
[2024-09-12] MEDS: GADOTERIDOL INJ 20ML SYRINGE 13 ML IV (09:42)
[2024-09-12] MEDS: SODIUM CHLORIDE 0.9% 10ML SYR (RAD ONLY) 10 ML IV (09:42)
== END 2024-09-12 23:59 | disposition home or self-care (01) ==
LOC: RAD 08:53
PROVIDERS: PCP Nurse Practitioner Family; Visit Provider Nurse Practitioner Family
DX: R42 Dizziness and giddiness (principal); R51.9 Headache, unspecified; H53.9 Unspecified visual disturbance
CPT/HCPCS: 70553; A9576

== ENCOUNTER 2024-10-08 15:28 | Outpatient (CLI) | payer BC, SELFPAY ==
[2024-10-08 20:10] LABS: Magnesium 1.8 mg/dl (1.6-2.3)
== END 2024-10-08 23:59 | disposition home or self-care (01) ==
LOC: LAB.DROPOF 10-09 14:12
PROVIDERS: PCP Nurse Practitioner Family; Visit Provider Nurse Practitioner Family
DX: E83.42 Hypomagnesemia (principal)
CPT/HCPCS: 83735

== ENCOUNTER 2025-03-11 17:29 | Outpatient (CLI) | payer BC, SELFPAY ==
--- OUTSIDE RECORDS SUMMARY | 2025-03-04 10:00 | XMS_ITS ---
Author Organization [facility] Address [address] [place] [address] Care Team Providers Care S3B Multi Sensor Operator Name Role Phone Romina Gann Unavailable [phone] Amina Sauer Unavailable [phone] Allergies Allergen (clinical drug ingredient) Drug/Non Drug Allergy documented on EMR Reaction Allergy Type Onset Date Status sulfamethoxazole / trimethoprim Bactrim Unknown Drug Allergy Active erythromycin Erythromycin Unknown Drug Allergy A ctive Results Component Value Reference Range Notes Pap w/reflex HPV (Not yet re viewed by provider) Interpretation: Performing Lab:Jovita BISHOP [facility] - [place] CLIA ID [id number], [address] [facility], [address], [place] [address], Director - Von Avelar MD Notes/Report: Any Nucleic Acid Amplification testing is performed on the [employer] [place]. Diagnosis: Negative for intraepithelial lesion or malignancy. AP results FINAL CHIEF PSYCHOLOGY CYTOLOGY REPORT DIAGNOSIS: Negative for intraepithelial lesion [...] This specimen has been analyzed by the ThinPrep Imaging System, an interactive computer system which assists the lab in screening of ThinPrep Pap Test slides. Following imaging, the slide was reviewed by a Cooler Servicer and/or Pathologist. Negative Educational Note: The pap screening test aids in the detection of premalignant and malignant states of the cervix. False positive and negative results may occur. It is not a diagnostic test. If abnormal cells are reported, follow-up based on current clinical guidelines and/or clinical consideration is recommended. Cindy Adams Cooler Servicer CPT Codes: 98010 ICD Codes: Z01.419 REASON FOR VISIT Annual [...] 03/04/2025 Encounters Encounter Location Date Provider Diagnosis [facility] [address] [facility] [address] [place] [address] 03/04/2025 Amina Sauer Supervisor Microwave exam without abnormal findings Z01.419 Assessments Encounter Date Diagnosis (ICD Code) Assessment Notes Treatment Notes Treatment Clinical Notes Section Notes 03/04/2025 Supervisor Microwave exam without abnormal findings (ICD-10 - Z01.419) Plan Of Treatment Pending Test Test Name Order Date Pap w/reflex HPV 03/04/2025 Next Appt Details Provider Name:Amina Sauer , 03/10/2026 01:00:00 PM, [address] [facility], [facility] [address] [place] [address], [id number], History and Physical Notes * Examination Category [...] ABDOMINAL/GASTROINTESTINAL: Abdomen nont dianna, no masses palpated Icing Coater Icing Coater CSnyder Breast Examination BREASTS: Breast normal . No evidence of mass, skin changes, nipple retraction or discharge AXILLARY LYMPH NODES: No lymphadenopathy Progress Notes * Bo BRANDONArtemOB: 9 (35 yo F)Acc No.[id number]:03/04/2025 Progress Note Patient: Tawana Trinh Provider: Jax Sauer MD :1990 A ge:35 Y S ex:Female Date:03/04/2025 Address:[address] [place] [address] Subjective: * Chief Complaints: * A nnual * HPI: A nnual: 35 year old female presents with c/o Annual Exam. * 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: High blood pressure on control pills Migraines Asthma Female infertility of tubal origin Insomnia 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 Verified * Supervisor Microwave History: P ap Smear History: D ate [...] LYMPH NODES: N o lymphadenopathy. C haperone: Icing Coater Fannie Cespedes. Assessment: * Assessment: 1. G yn exam without abnormal findings - Z01.419 (Primary) Plan: * Treatment: * Procedure Codes: 9 9459 Pelvic examination [List separately in addition to code for primary procedure] * Preventive Medicine: Counseling: R ozzie Preventative Care: Sera michaeld ACOG guidelines for preventative exams and pap smears. Preventative health guidelines discussed breast cancer, colon cancer, and osteoporosis screening and prevention as appropriate. Counseled on safe sex practices including control and prevention of sexually transmitted infections as appropriate. B [place] care goal follow-up plan: BMI management provided Y es Discussed importance of healthy BMI?Yes S moking: Type of Tobacco Use Cessation Counseling provided C daria if indicated Billing Information: * Visit Code: 99936 Est Pt Annual 18-39 yr old. * Procedure Codes: 57517 Pelvic examination [List separately in addition to code for primary procedure]. * Sign off status: Completed Visit Status: C HK (Check Out) true * Provider: Jax Sauer MD Date: Generated for Elenita galvan/Ford/Idris on: 05:31 PM EDT
--- OUTSIDE RECORDS SUMMARY | 2025-03-12 17:31 | XMS_ITS | Clinical Summary ---
Author Organization [facility] Address [address] [place] [address] Care Team Providers Care Donor Relations Manager Name Role Phone Sofia Michelle MD Primary Care Provider [phone] Allergies Active Allergy Reactions Criticality Noted Date Comments Erythromycin GI Intolerance 09/27/2023 Sulfa Antibiotics Rash Low 09/27/2023 Medications ferrous sulfate 325 (65 FE) MG tablet Take 1 tablet by mouth Daily With Breakfast. Active Vit-Fe Fumarate-FA ( ) 27-1 MG tablet tablet Take 1 tablet by mouth Daily. Active docusate sodium 100 MG capsule Take 1 capsule by mouth 2 (Two) Times a Day. 60 capsule 09/30/2023 10:07 AM EDT 09/30/2023 Active ibuprofen (ADVIL,MOTRIN) 600 MG tablet Take 1 tablet by mouth Every 6 (Six) Hours As Needed for Mild Pain 60 tablet 09/30/2023 10:07 AM EDT 09/30/2023 Active NIFEdipine CC (ADALAT CC) 30 MG 24 hr tablet Take 1 tablet by mouth Every 12 (Twelve) Hours. 60 tablet 09/30/2023 10:07 AM EDT 09/30/2023 Active phenazopyridine (Pyridium) 200 MG tablet Take 1 tablet by mouth Every 12 (Twelve) Hours for 2 days. 4 tablet 2 01/16/2024 2:46 PM EDT 01/16/2024 Active cephalexin (Keflex) 500 MG capsule Take 1 capsule by mouth Every 6 (Six) Hours for 7 days 28 capsule 01/16/2024 2:46 PM EDT 01/16/2024 Active Active Problems Problem Noted Date Diagnosed Date Gestational hypertension 09/27/2023 Family History 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 Relation Name Comments No Known Problems Brother Diabetes Father Hypertension Father Ovarian cancer Maternal Grandmother Hypertension Mother Diabetes Other AMILY HX NOT SPECIFIED Heart disease Other AMILY HX NOT SPECIFIED Hypertension Other AMILY HX NOT SPECIFIED Breast cancer Paternal Grandmother No Known Problems Sister Relation Name Status Comments Brother Alive Father Alive Maternal Grandmother Mother Alive Other AMILY HX Paternal Grandmother Sister Alive Social History Tobacco Use Types Packs/Day Years Used Date Smoking Tobacco: Never Passive Smoke Exposure: Never Tobacco Cessation:Counseling Given: No Alcohol Use Standard Drinks/Week Comments Never 0 (1 standard drink = 0.6 oz pur e alcohol) UNKNOWN [facility] Utilities Answer Date Recorded In the past 12 months has th e electric, gas, oil, or water company threatened to shut off services in your home? No 09/27/2023 AUDIT-C Answer Date Recorded Q1: How often do you have a drink containing alcohol? Never 09/27/2023 Q2: How many drinks containi ng alcohol do you have on a typical day when you are drinking? Patient does not drink Q3: How often do you have si x or more drinks on one occasion? Never 09/27/2023 Overall Financial Resource Strain (CARDIA) Answe r Date Recorded How hard is it for you to pa y for the very basics like food, housing, medical care, and heating? Not hard at all 09/27/2023 [facility] - Occupational Stress Questionnaire Answer Date Recorded Do you feel stress - tense, restless, nervous, or anxious, or unable to sleep at night because your mind is troubled all the time - these days? Not at all 09/27/2023 Exercise Vital Sign Answer Date Recorde d On average, how many days pe r week do you engage in moderate to strenuous exercise (like a brisk walk)? 5 days 09/27/2023 On average, how many minutes do you engage in exercise at this level? 30 min 09/27/2023 Hunger Vital Sign Answer Date Recorded Within the past 12 months, y ou worried that your food would run out before you got the money to buy more. Never true 09/27/19 24 Within the past 12 months, t he food you bought just didn't last and you didn't have money to get more. Never true 09/27/2023 PRAPARE - Transportation Answer Date Re corded In the past 12 months, has l ack of transportation kept you from medical appointments or from getting medications? No 08/30 In the past 12 months, has l ack of transportation kept you from meetings, work, or from getting things needed for daily living? No 09/27/2023 [place] Depression Scale Answer Date Recorded [place] Depression Scale Total 3 10/10/2023 The thought of harming myself has occurred to me . Unrecognized value 10/10/2023 Abuse Screen Answer Date Recorded Feels Unsafe at Home or Work/School no 09/27/2023 Feels Threatened by Someone no 08/30 Does Anyone Try to Keep You From Having Contact with Others or Doing Things Outside Your Home? no 09/27/2023 Physical Signs of Abuse Present no 09/27/2023 Housing Stability Answer Date Recorded Current Living Arrangements home 08/30 Potentially Unsafe Housing Conditions none 09/27/2023 Family and Community Support Answer Ramon e Recorded If for any reason you need h elp with day-to-day activities such as bathing, preparing meals, shopping, managing finances, etc., do you get the help you need? I don't need any help 09/27/2023 How often do you feel lonely or isolated from those around you? Never 09/27/2023 Employment Answer Date Recorded Do you want help finding or keeping work or a job? I do not need or want help 09/27/2023 Disabilities Answer Date Recorded Difficulty Concentrating, Remembering or Making Decisions no 09/27/2023 Difficulty Managing Errands Independently no 09/27/2023 Education Answer Date Recorded Do you want help with school or training? For example, starting or completing job training or getting a high school diploma, GED or equivalent No 09/27/2023 Preferred Language Tanzanian 09/27/2023 PHQ-2 Answer Date Recorded Retired PHQ-9: Brief Depression Severity Measure Score 0 09/27/2023 Education Answer Date Recorded What is the highest level of school you have completed or the highest degree you have received? 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 Not on file Not on file Last Filed Vital Signs Vital Sign Reading Time Taken Comments Blood Pressure 150/86 09/30/2023 7:55 AM EDT Pulse 94 09/30/2023 7:55 AM EDT Temperature 36.6 C (97.9 F) 09/30/2023 7:55 AM EDT Respiratory Rate 16 09/30/2023 7:55 AM EDT Oxygen Saturation 100% 09/28/2023 2:14 AM EDT Inhaled Oxygen Concentration - - Weight 79.8 kg (176 lb) 09/27/2023 1:25 PM EDT Height 162.6 cm (5' 4 ) 09/27/2023 1:25 PM EDT Body Mass Index 30.21 09/27/2023 1:25 PM EDT Plan of Treatment Health Maintenance Due Date Last Done Comments Annual Gynecologic Pelvic an d Breast Exam 1990 ANNUAL PHYSICAL 03/18/2020 INFLUENZA VACCINE 12/28/2024 04/13/2022, 02/12/2021, 05/26/2014 TDAP/TD VACCINES (2 - Td or Tdap) 02/10/2026 02/11/2016 HEPATITIS C SCREENING Completed 02/22/2023 Pneumococcal Vaccine 0-49 Aged Out No longer eligible based on patient's age to complete this topic Procedures Procedure Name Priority Date/Time Associated Diagnosis Comments HEPATITIS C ANTIBODY Routine 02/22/2023 from Last 3 Months or Most Recently Relevant to Health Maintenance Results * Hepatitis C Antibody (02/22/2023) External Hepatitis C Ab neg Blood Historical Provider LAB BLOOD ORDERABLES Mi l Result from Last 3 Months or Most Recently Relevant to Health Maintenance Insurance [facility] [employer] [employer] PPO Advance Directives * CPR (Attempt to Resuscitate) (Latest Code Status on File) Date Activated Date Inactivated Comments 09/28/2023 8:51 PM 09/30/2023 2:30 PM Question Answer Comments Code Status (Patient has no pulse and is not breathing): CPR (Attempt to Resuscitate) Medical Interventions (Patie nt has pulse or is breathing): Full * CPR (Attempt to Resuscitate) Date Activated Date Inactivated Comments 09/27/2023 5:41 PM 09/28/2023 8:51 PM Question Answer Comments Code Status (Patient has no pulse and is not breathing): CPR (Attempt to Resuscitate) Medical Interventions (Patie nt has pulse or is breathing): Full Support Level Of Support Discussed With: Patient Care Teams Donor Relations Manager Relationship Specialty Start Date End Date Sofia Michelle MD [address] [place] [address] PCP - General Internal Medicine 12/24/22
--- OUTSIDE RECORDS SUMMARY | 2025-03-12 17:31 | XMS_ITS | Patient Health Record ---
Author Organization [facility] Address [address] [place] [address] Care Team Providers Care Construction Services Technician Name Role Phone Romina Gann Unavailable [phone] Zullyeze Amina Unavailable [phone] Allergies Allergen (clinical drug ingredient) Drug/Non Drug Allergy documented on EMR Reaction Allergy Type Onset Date Status sulfamethoxazole / trimethoprim Bactrim Unknown Drug Allergy Active erythromycin Erythromycin Unknown Drug Allergy A ctive Results Component Value Reference Range Notes Pap w/reflex HPV (Not yet re viewed by provider) Interpretation: Performing Lab:Jovita BISHOP [facility] - [facility] CLIA ID [id number], [id number], [address], [place] [address], Director - Von Avelar MD Notes/Report: Any Nucleic Acid Amplification testing is performed on the [employer] [place]. Diagnosis: Negative for intraepithelial lesion or malignancy. AP results Specimen Adequacy: Other Gynecological Patient Information: Not provided CPT Codes: 00241 DIAGNOSIS: Specimen Type: ThinPrep Glove [employer]er [employer] CYTOLOGY REPORT Negative Educational Note: The pap screening test aids in the detection of premalignant and malignant states of the cervix. False positive and negative results may occur. It is not a diagnostic test. If abnormal cells are reported, follow-up based on current clinical guidelines and/or clinical consideration is recommended. Pertinent Clinical History/History of Surgery: Not provided Results of Last Pap: Not provided Specimen Source: Cervical/Endocervical Cindy Adams Collection Technique: Not provided Date of Last Pap: Not provided ICD Codes: Z01.419 Negative for intraepithelial lesion or malignancy. LMP: * Recommendation: Follow-up based on current clinical guidelines and/or clinical consideration. Screening note: This specimen has been analyzed by the [employer] Imaging System, an interactive computer system which assists the lab in screening of ThinPrep Pap Test slides. Following imaging, the slide was reviewed by a Glove Sewer and/or Pathologist. Satisfactory for interpretation with endocervical/transformat ion zone component present. Reason For Referral No Information Medications Medication SIG (Take, Route, Frequency, Duration) [...] Notes Tobacco Use/Smoking Are you a nonsmoker Problems Problem Type SNOMED Code ICD Code Onset Dates Problem Status W/U Status Risk Notes Problem History of gestational hypertension (745778760) History of gestational hypertension (Z87.59) Active confirmed Problem Third trimester (18578903) Encounter for supervision of other normal , third trimester (Z34.83) Active confirmed Problem Abnormal glucose tolerance in mother complicating , childbirth AND/OR puerperium (25783878) Abnormal glucose affecting (O99.810) Active confirmed Problem History of section (643188999) Previous delivery affecting (O34.219) Active confirmed Problem Asymptomatic bacteriuria (837092993) Asymptomatic bacteriuria (R82.71) Active confirmed Vital Signs Blood pressure diastolic 72 mm Hg 03/04/2025 Height 64 in 03/04/2025 Blood pressure systolic 104 mm Hg 03/04/2025 Weight 127.6 lbs 03/04/2025 BMI 21.9 kg/m2 03/04/2025 Encounters Encounter Location Date Provider Diagnosis [facility] [address] [facility] [address] [place] [address] 03/04/2025 Amina Sauer [place] exam without abnormal findings Z01.419 Assessments Encounter Date Diagnosis (ICD Code) Assessment Notes Treatment Notes Treatment Clinical Notes Section Notes 03/04/2025 [place] exam without abnormal findings (ICD-10 - Z01.419) Plan Of Treatment Pending Test Test Name Order Date Pap w/reflex HPV 03/04/2025 Next Appt Details Provider Name:Amina Sauer , 03/10/2026 01:00:00 PM, [address], [place], [address], Insurance Providers Payer Name Payer Address Payer Phone Subscriber Number Group Number Insured Name Patient Relationship to Insured Coverage Start Date Coverage End Date Yumiko GARDNERO [address] [place] [address] [id number] Tawana Brandon Self - patient is the insured 2 Medical (General) History 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 History ICD Code high blood pressure on control pil ls migraines asthma 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 LSC, Ovarian Cystectomy 2016 Primary Caesarean Section 08/01/2015 Hospitalization History Reason Date(Month/Year) L&D - [facility] C/S,
== END 2025-03-11 23:59 | disposition home or self-care (01) ==
LOC: LAB.DROPOF 03-12 17:29
PROVIDERS: PCP Nurse Practitioner Family; Visit Provider Nurse Practitioner Family
DX: N39.0 Urinary tract infection, site not specified (principal)
CPT/HCPCS: 87086

== ENCOUNTER 2025-04-15 12:42 | Observation (INO) | payer BC, SELFPAY ==
[2025-04-15] VITALS (11 sets, daily range): BP systolic 109–129; BP diastolic 63–90; PULSE 111–134; RESP 14–18; TEMP 36.3–38.7; O2SAT 98–100; BMI 21.4; BMI 21.3
--- NOTE | 2025-04-15 12:51 | ED_ITS ---
<Statement entered by aJx Brambila MD - 04/16/25 07:53> I was consulted by the MARGARETH, and we discussed the complexity of the problems being addressed. I approved the treatment and management plan for this patient's care in the emergency department, thus performing a substantive portion of the medical decision making. Jax Brambila MD, JENIFFER, FACEP Discharge Plan Disposition Patient Disposition: Admitted Condition: Good Clinical Impressions Clinical Impression: Diarrhea, Acute kidney injury Discharge ED Provider: Jax Brambila General Adult HPI General Chief complaint: Dizziness Stated complaint: dsiarrhea, feels faint, weakness, leg bloating Time Seen by Provider: 04/15/25 12:51 Mode of Arrival: Ambulatory Source of Information: Patient, Relative and Medical Record Limitations: No Limitations History of Present Illness HPI narrative: 35-year-old female presents the emergency department accompanied by her mother for a 2-day history of fatigue malaise myalgias, nonbloody diarrhea nausea, lightheaded/dizziness that occurred today, which prompted emergency department visit. Patient has any chest pain shortness of breath denies any cough congestion sore throat, denies any real headache, denies any overt abdominal pain no vomiting, no constipation, no urinary symptomatology, no vaginal symptomatology, patient is a non-smoker denies any alcohol or drug use, does endorse recent sick contact being had similar symptoms last week, other past medical history consistent with MDD/DIOGO, asthma, also of note patient was recently diagnosed with a UTI 2 weeks ago finished a round of ciprofloxacin antibiotic. Initial triage vitals noted for tachycardia otherwise unremarkable. Please note that above description of symptoms, in this electronic medical record under categorization of recalled from ER triage doctor by RN are reflective of an initial nursing assessment, however, is not reflective of my full history and physical exam that was personally taken and clarified. Consequentially, this preceding description of symptoms, which may include the patient's categorized chief complaint in the EMR, do not reflect my personal clinical impression, and the ultimate description of history of present illness and patient stated complaints should be deferred to this section of the note. Unless stated otherwise or congruent with this section of the note, additional signs, symptoms, or incongruence should be interpreted as inaccurate with my clinical impression. Onset (ago): day(s) Related Data Previous Rx's ?Medication ?Instructions ?Recorded ondansetron 4 mg disintegrating 4 mg PO Q8H PRN Nausea #20 tabs 06/28/24 tablet promethazine 25 mg rectal 25 mg SD Q6H PRN nausea and 06/28/24 suppository vomiting #12 ea buspirone 7.5 mg tablet 7.5 mg PO BID #60 tabs 01/23 propranolol 20 mg tablet 20 mg PO BID #60 tabs trazodone 50 mg tablet See Rx Instructions .Route 0 01/23/25 .COMPLEX #30 tabs ciprofloxacin HCl 250 mg tablet 250 mg PO Q12H 3 days #6 tabs 03/11/25 (Cipro) phenazopyridine 100 mg tablet 100 mg PO QPC PRN pain 6 doses #6 03/11/25 (Pyridium) tabs Allergies Allergy/AdvReac Type Severity Reaction Status Date / Time erythromycin base Allergy Intermediate Unknown Verified 03/11/25 18:38 (ERYTHROMYCIN BASE) allergy reaction sulfamethoxazole (From Allergy Intermediate Unknown Verified 03/11/25 18:38 Bactrim) allergy reaction trimethoprim (From Bactrim) Allergy Intermediate Unknown Verified 03/11/25 18:38 allergy reaction PFSH PFS Disclaimer: The information contained in this section may have been updated after the patient was seen, as this information can be updated by other users. 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 (Updated 04/15/25 @ 16:28 by Kelsie Calderón APRN) UTI (urinary tract infection) Sinusitis Serotonin syndrome Acute middle ear effusion Fingertip amputation UTI (urinary tract infection) Depression Anxiety Migraine Asthma Laryngitis Pharyngitis Gastroenteritis Upper respiratory tract infection Surgical History History of section Social History Smoking Status: Never smoker second hand exposure: No alcohol intake: never current occupational status: other Travel in the last 8 weeks?: None household members: spouse housing: house current occupational exposures/hazards: No caffeine: No Have you lived/traveled outside [place] in past 30 days?: No Contact w/someone who lives/traveled outside [place] past 30 days?: No Exposure to someone with infectious disease in past 14 days?: No Do you have a fever (greater than 100.4 F or 38 C)?: No Have you tested positive for COVID-19?: No Exposed to someone with COVID-19 in past 14 days?: No Do you have a sore throat?: No Do you have a cough?: No Do you have any weakness?: No Do you have any diarrhea?: No Are you experiencing any unusual bleeding?: No Do you have any muscle aches/pain?: No Do you have any abdominal pain?: No Are you experiencing loss of taste or smell?: No Other 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 Have you received the Flu Vaccine for this season: No Have you received the Pneumonia Vaccine: No ROS Obtained: Yes All systems reviewed & no additional complaints except as documented Physical Exam General General appearance: alert and in no apparent distress Comment: Dry mucous membranes, somewhat pale appearing female Head Head exam: atraumatic and normocephalic Eye Eye exam: Present PERRL and EOMI ENT ENT exam: Present mucous membranes moist Neck Neck exam: Present normal inspection Chest Chest inspection: Present normal inspection and symmetric chest wall rise Respiratory Respiratory exam: Present normal lung sounds bilaterally; Absent respiratory distress Cardiovascular Cardiovascular exam: Present normal rhythm and tachycardia Abdominal Exam Abdominal exam: Present soft; Absent tenderness, guarding or rebound Extremities Exam Extremities exam: Present normal inspection Neurological Exam Neurological exam: Present alert and oriented X3 Psychiatric Psychiatric exam: Present normal affect Skin Skin exam: Present warm and dry Medical Decision Making Medical Records Medical records reviewed: Yes I reviewed the patient's medical records. Screening: Per USPSTF and CDC recommendations, given the prevalence of disease in our region, it is our hospital?s policy to screen for HIV and viral Hepatitis for all patients aged 18 and over and those with ongoing risk factors. Abrahan Inquiry Pt receiving controlled substance: No Abrahan was queried for this patient: No Vital Signs: 04/15/25 12:54 04/15/25 13:10 04/15/25 13:30 Temperature 97.4 F L Temperature Source Temporal Artery Scan Pulse Rate 111 H 117 H Pulse Rate [Right] 118 H Respiratory Rate 18 14 17 Blood Pressure 122/85 113/90 Blood Pressure [Right Arm] 113/87 Blood Pressure Mean 97 Blood Pressure Mean [Right Arm] 95 Blood Pressure Source [Right Arm] Automatic Cuff Blood Pressure Position [Right Arm] Sitting 02 Sat by Pulse Oximetry 100 99 100 Oxygen Delivery Method Room Air Room Air Room Air 04/15/25 14:00 04/15/25 14:50 04/15/25 16:00 Temperature 99.8 F H 98.6 F Temperature Source Oral Oral Pulse Rate 120 H Pulse Rate [Right] 121 H Respiratory Rate 17 17 Blood Pressure 119/72 Blood Pressure [Right Arm] 129/81 Blood Pressure Mean Blood Pressure Mean [Right Arm] 97 Blood Pressure Source [Right Arm] Automatic Cuff Blood Pressure Position [Right Arm] 02 Sat by Pulse Oximetry 99 100 Oxygen Delivery Method Room Air Room Air Lab Data Lab results reviewed: Yes I reviewed the patient's lab results. Lab Results 04/15/25 12:58: WBC 7.0, RBC 5.02, Hgb 13.5, Hct 40.8, MCV 81.3, MCH 26.9 L, MCHC 33.1, RDW 12.9, Plt Count 206, MPV 10.3, Neut % (Auto) 83.7 H, Lymph % (Auto) 9.0 L, [place] % (Auto) 5.1, Eos % (Auto) 0.9, Baso % (Auto) 0.9, Neut # (Auto) 5.9, Lymph # (Auto) 0.6 L, [place] # (Auto) 0.4, Eos # (Auto) 0.1, Baso # (Auto) 0.1, PT 13.5 H, INR 1.24 H, Sodium 135 L, Potassium 4.0, Chloride 99, Carbon Dioxide 22, Anion Gap 18.0 H, BUN 16, Creatinine 1.40 H, Estimated Creat Clear 50, Estimated GFR 43 L, Est GFR ( Amer) 51 L, Glucose 104 H, L actate 2.6 H, Calcium 8.9, Magnesium 1.5 L, Total Bilirubin 1.2, AST 34, ALT 31, Alkaline Phosphatase 45, Troponin I < 0.01, NT-Pro-B Natriuret Pep 587 H, Total Protein 8.2, Albumin 4.6, Globulin 3.6 H, Albumin/Globulin Ratio 1.3, Lipase 29, Serum HCG, Qual Negative 04/15/25 14:19: Urine Color Yellow, Urine Appearance Clear, Urine pH 6.0, Ur Specific Lavinia 1.020, Urine Protein Trace, Urine Glucose (UA) Negative, Urine Ketones 1+, Urine Blood Trace-i, Urine Nitrate Negative, Urine Bilirubin 1+ A, Urine Urobilinogen 0.2, Ur Leukocyte Esterase Negative, Urine RBC None, Urine WBC None, Ur Squamous Epith Cells 10-20, Urine Bacteria 2+ 04/15/25 12:58 04/15/25 12:58 Orders (Tests/Meds): ED MEDICATIONS Generic Name Dose Route Start Last Admin Trade Name Sadaf PRN Reason Stop Dose Admin Acetaminophen 650 mg 04/15/25 15:41 Acetaminophen 325mg Tab PO 05/15/25 15:40 Q4HP PRN Fever or Mild Pain (1-3) Enoxaparin Sodium 40 mg 04/16/25 09:00 Enoxaparin 40mg/0.4ml Syringe SUBCUT 05/16/25 08:59 DAILY LASHANDA Sodium Chloride 1,000 mls @ 999 mls/hr 04/15/25 15:41 Sod Chlor 0.9% 1000ml Bag IV 04/15/25 16:41 .Q1H1M ONE Lactated Ringer's 1,000 mls @ 125 mls/hr 04/15/25 15:45 04/15/25 16:24 Lactated Ringer's 1000 Ml Bag IV 05/15/25 15:44 125 mls/hr .Q8H LASHANDA Administration Ondansetron HCl 4 mg 04/15/25 15:41 Ondansetron 4mg/2ml Vial IV 05/15/25 15:40 Q8HP PRN Nausea Sodium Chloride 10 ml 04/15/25 14:51 04/15/25 14:52 Sodium Chloride 0.9% 10ml Syr (Rad Only) IV 05/15/25 14:50 10 ml NEEDED PRN Administration Maintain IV Site Discontinued Medications Generic Name Dose Route Start Last Admin Trade Name Sadaf PRN Reason Stop Dose Admin Acetaminophen 1,000 mg 04/15/25 14:46 04/15/25 14:47 Acetaminophen 1,000mg/100ml Vial IV 04/15/25 14:47 1,000 mg ONCE ONE Administration Sodium Chloride 1,000 mls @ 999 mls/hr 04/15/25 13:02 04/15/25 14:50 Sod Chlor 0.9% 1000ml Bag IV 04/15/25 14:02 Infused .Q1H1M ONE Infusion Iopamidol 75 ml 04/15/25 14:51 04/15/25 14:52 Iopamidol-370 (76%);100ml Bottle IV 04/15/25 14:52 75 ml ONCE ONE Administration Ondansetron HCl 4 mg 04/15/25 13:07 04/15/25 13:12 Ondansetron 4mg/2ml Vial IV 04/15/25 13:08 4 mg ONCE ONE Administration Ondansetron HCl 4 mg 04/15/25 14:22 04/15/25 14:37 Ondansetron 4mg/2ml Vial IV 04/15/25 14:23 4 mg ONCE ONE Administration ORDERS Category Date Time Status CT abdomen pelvis w con Stat Cat Scan 04/15/25 14:23 Completed XR chest portable Stat Exams 04/15/25 13:00 Completed Complete Blood Count Auto Diff [facility] Lab 04/16/25 06:00 Ordered Complete Blood Count Auto Diff [facility]AB Lab 04/17/25 06:00 Ordered Complete Blood Count Auto Diff AMLAB Lab 04/18/25 06:00 Ordered Complete Blood Count Auto Diff Stat Lab 04/15/25 12:58 Completed Comprehensive Metabolic Panel [facility] Lab 04/16/25 06:00 Ordered Comprehensive Metabolic Panel [facility] Lab 04/17/25 06:00 Ordered Comprehensive Metabolic Panel [facility] Lab 04/18/25 06:00 Ordered Comprehensive Metabolic Panel Stat Lab 04/15/25 12:58 Completed Diarrhea 23 Panel, PCR Stat Lab 04/15/25 13:01 Ordered HCG Qualitative, Serum Stat Lab 04/15/25 12:58 Completed Lactic Acid Stat Lab 04/15/25 12:58 Completed Lipase Stat Lab 04/15/25 12:58 Completed Magnesium AML[facility] Lab 04/16/25 06:00 Ordered Magnesium AMLAB Lab 04/17/25 06:00 Ordered Magnesium Stat Lab 04/15/25 12:58 Completed Mini Respiratory Panel Stat Lab 04/15/25 14:52 Received NT Pro Brain Natriuretic Pep. Stat Lab 04/15/25 12:58 Completed PT INR [Prothrombin Time INR] Stat Lab 04/15/25 12:58 Completed Troponin I Q3H Lab 04/15/25 16:12 Received Troponin I Q3H Lab 04/15/25 19:15 Ordered Troponin I Stat Lab 04/15/25 12:58 Completed Urinalysis and Microscopic Stat Lab 04/15/25 14:19 Completed Urine Culture Stat Micro 04/15/25 14:19 Received Medical Decision Narrative: 35-year-old female presents the emergency department with fatigue malaise myalgias diarrhea nausea and lightheadedness for the last 2 days, differential diagnose include but not limited to, cardiac arrhythmia, electrolyte disturbance, acute kidney injury, acute UTI, pneumonia, viral URI, acute bronchitis, gastroenteritis, colitis, ileitis, hypovolemia, among others. I discussed this patient's case with the attending physician Dr. Brambila Will obtain basic laboratory studies, EKG, chest x-ray, diarrhea panel, hCG qualitative, lactic acid lipase level magnesium level mini respiratory panel, proBNP PT/NR, troponin, urinalysis, give 1 L IV NS, and will give 4 mg IV Zofran for nausea. CBC is notable for no leukocytosis, otherwise unremarkable Coagulation studies are notable for PT of 13.5 and INR 1.24 hCG serum qualitative negative CMP is notable for creatinine elevation 1.4, lactic acidosis of 2.6, minimal hypomagnesia, at 1.5, troponin is within normal limits at less than 0.01 proBNP is mildly elevated at 587, lipase within normal limit. I was notified by nursing staff the patient is still complaining of some nausea will give additional dose of 4 mg IV Zofran for nausea and obtain CT and pelvis with contrast for further evaluation/characterization. I was notified by nursing staff the patient is complaining of some myalgias, will give her 1000 mg of IV Tylenol for myalgias. I reviewed the patient's chest x-ray along the corresponding radiologic report no acute cardiopulmonary process. UA is notable for 1+ bilirubin, no RBCs no WBCs 10-20 squamous epithelial cells and 2+ bacteria. I reviewed the patient's CT abdomen pelvis with contrast along the corresponding radiologic report, likely recently ruptured left ovarian cyst otherwise unremarkable exam. Will give additional dose of 1 L IV NS I discussed this patient's case with Sammi Calderón APRN at approximately 3:39 PM, she is in agreement with the current admission plan for acute kidney injury in the setting of hypovolemia and gastroenteritis. I discussed need for admission with patient family bedside patient family agreed with current admission plan to treat plan. Critical Care Critical Care Time Critical Care Time: No
--- NOTE | 2025-04-15 13:00 | XR_ITS ---
FINAL REPORT TECHNIQUE: Single view chest CLINICAL HISTORY: SOA FINDINGS: A single view of the chest was obtained. The heart and mediastinum are within normal limits. The lungs are clear. There is no pneumothorax. IMPRESSION: No acute cardiopulmonary process. Reviewed, Interpreted and Dictated by Jayme Schofield MD Transcribed by Malou Carr Authenticated and . [facility]
[2025-04-15 13:08] LABS: Hematocrit 40.8 % (37.0-47.0); Hemoglobin 13.5 g/dL (12.2-16.2); Immature Granulocytes % 0.4 %; Mean Corpuscular HGB Conc 33.1 g/dL (31.8-35.4); Mean Corpuscular Hemoglobin 26.9 pg (27.0-31.2); Mean Corpuscular Volume 81.3 fl (81-99); Nucleated Red Blood Cells % 0 %; Platelet Count 206 K/mm3 (142-424); Red Blood Count 5.02 M/mm3 (4.20-5.40); Red Cell Distribution Width-SD 38.0 fL; White Blood Count 7.0 K/mm3 (4.8-10.8)
[2025-04-15] MEDS: 0.9 % SODIUM CHLORIDE 1000ML 1,000 ML 999 ML IV (13:11)
[2025-04-15] MEDS: ONDANSETRON 4MG/2ML VIAL 4 MG IV ×3 (13:12→18:16)
--- NOTE | 2025-04-15 13:13 | ECG_ITS ---
APPROVED REPORT Exam: Resting ECG HR:123 bpm ECG Measurements Heart Rate 123 AXES MI 119 P 71 QRSd 89 QRS 94 QT 277 T -70 QTc 350 Conclusion SINUS TACHYCARDIA WITH SHORT MI INTERVAL BORDERLINE RIGHT AXIS DEVIATION [QRS AXIS > 90] ST DEVIATION AND MODERATE T-WAVE ABNORMALITY, CONSIDER ANTEROLATERAL ISCHEMIA [-0.1+ mV T-WAVE IN V3-V6] ST DEVIATION AND MODERATE T-WAVE ABNORMALITY, CONSIDER INFERIOR ISCHEMIA [-0.1+ mV T-WAVE IN II/aVF] ABNORMAL ECG UNCONFIRMED REPORT Electronically signed by : Miguel Brambila, 04/15/2025 15:53:23
[2025-04-15 13:14] LABS: Albumin Level 4.6 g/dl (3.5-5.0); Chloride 99 mmol/L (98-107); Potassium 4.0 mmoL/L (3.5-5.1); Sodium 135 mmol/L (136-145)
[2025-04-15 13:17] LABS: Alanine Aminotransferase 31 U/L (12-78); Albumin/Globulin Ratio 1.3 (1.1-1.8); Alkaline Phosphatase 45 U/L (38-126); Anion Gap 18.0 mEq/L (5-15); Aspartate Amino Transferase 34 U/L (14-36); Bilirubin,Total 1.2 mg/dl (0.2-1.3); Blood Urea Nitrogen 16 mg/dl (7-17); Calcium 8.9 mg/dl (8.4-10.2); Carbon Dioxide 22 mmol/L (22.0-30.0); Creatinine Clearance Estimated 50 mL/min (50-200); Creatinine,Serum 1.40 mg/dl (0.52-1.04); Estimated Glomerular Filt Rate 43 ml/min (>60); GFR (African American) 51 ML/MIN (>60); Globulin 3.6 g/dL (1.3-3.2); Glucose 104 mg/dl (74-100); Lipase 29 U/L (23-300); Total Protein,Serum 8.2 g/dl (6.3-8.2)
[2025-04-15 13:18] LABS: Magnesium 1.5 mg/dl (1.6-2.3)
[2025-04-15 13:20] LABS: INR 1.24 (0.9-1.1); Prothrombin Time 13.5 seconds (10.1-12.5)
[2025-04-15 13:27] LABS: NT Pro Brain Natriuretic Pep. 587 pg/mL (0-125)
[2025-04-15 13:31] LABS: HCG Qualitative, Serum Negative (Negative); Troponin I < 0.01 ng/ml (0.00-0.034)
[2025-04-15 14:21] LABS: Microscopic, Urine URINE MICROSCOPIC (MICROSCOPIC)
--- NOTE | 2025-04-15 14:23 | CT_ITS ---
FINAL REPORT TECHNIQUE: After the administration of intravenous contrast, axial images were obtained through the abdomen and pelvis by computed tomography. This study was performed with technique to keep radiation doses as low as reasonably achievable, (ALARA). Individualized dose reduction techniques using automated exposure control or adjustment of the MA and/or KV according to the patient's size were employed. CLINICAL HISTORY: Nausea diarrhea FINDINGS: Abdomen: The lung bases are clear. The liver is normal in size and attenuation. Gallbladder is distended. There are calcified granulomas in the spleen. The spleen is otherwise unremarkable. The adrenals are normal. The pancreas is unremarkable. The kidneys enhance appropriately. The aorta is normal in caliber. There is no free fluid or adenopathy. Pelvis: The appendix is not identified. Uterus is eccentric to the left. There is minimal pelvic free fluid which is likely physiologic. Cyst or follicles are seen in the ovaries. On the left there is a cyst with an enhancing wall likely due to recently ruptured cyst. The urinary bladder is unremarkable. There is no adenopathy. IMPRESSION: Likely recently ruptured left ovarian cyst. Otherwise, unremarkable exam. Reviewed, Interpreted and Dictated by Jayme Schofield MD Transcribed by Malou Carr Authenticated and [facility]
[2025-04-15 14:24] LABS: Color,Urine YELLOW (Yellow); Glucose,Urine (UA) Negative (Negative); Ketones,Urine 1+ (Negative); Leukocyte Esterase,Urine Negative (Negative); PH,Urine 6.0 (5.0-8.5); Protein,Urine TRACE (Negative); Specific Gravity, Urine 1.020 (1.005-1.030); Urobilinogen,Urine 0.2 EU/dl (0.2)
[2025-04-15] MEDS: ACETAMINOPHEN 1,000MG/100ML VIAL 1000 MG IV (14:47)
[2025-04-15 14:49] LABS: Bilirubin,Urine 1+ (Negative)
[2025-04-15 14:50] LABS: Bacteria,Urine 2+ /lpf
[2025-04-15] MEDS: IOPAMIDOL-370 (76%);100ML BOTTLE 75 ML IV (14:52)
[2025-04-15] MEDS: SODIUM CHLORIDE 0.9% 10ML SYR (RAD ONLY) 10 ML IV (14:52)
[2025-04-15 15:01] LABS: Coronavirus 19, PCR Not Detected (NotDetected); Influenza A, PCR Not Detected (NotDetected); Influenza B, PCR Not Detected (NotDetected)
--- NOTE | 2025-04-15 15:47 | PC.NURSE ---
HS notified of the need for a bed to admit the pt to the hospitalist for [facility]
--- NOTE | 2025-04-15 15:48 | P.HP_ITS ---
<Statement entered by Miguel Velasco MD - 04/15/25 16:37> Rounded on patient after nurse practitioner. Personally examined and interviewed patient. Agree with exam findings and care plan as documented. History of Present Illness *Admission Date: 04/15/25 *Reason for visit:: diarrhea, nausea, fatigue *History of present illness: Ms. Brandon is a 35-year-old female who presented to the emergency department today with complaints of nausea, diarrhea, fatigue, dizziness for approximately 2 days. She denies chest pain, shortness of breath, cough, sore throat, known fever, vomiting, constipation, urinary symptoms. Patient also denies alcohol use, drug use, tobacco use. Patient has a significant medical history of MDD/DIOGO, asthma, and UTI approximately 2 weeks ago for which she completed antibiotics. Upon presentation to the emergency department she was tachycardic, heart rate 120s, low-grade fever 99.8. Blood pressure and oxygen saturation stable. Workup in the emergency department was significant for anion gap of 18, lactic 2.6, magnesium 1.5, BNP 587, and creatinine of 1.4. Baseline creatinine appears to be 0.7. Additionally patient continues to complain of nausea and appeared overall volume depleted. [facility] Disclaimer: The information contained in this section may have been updated after the patient was seen, as this information can be updated by other users. 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 (Updated 04/15/25 @ 16:28 by Kelsie Calderón APRN) UTI (urinary tract infection) Sinusitis Serotonin syndrome Acute middle ear effusion Fingertip amputation UTI (urinary tract infection) Depression Anxiety Migraine Asthma Laryngitis Pharyngitis Gastroenteritis Upper respiratory tract infection Surgical History History of section Social History Smoking Status: Never smoker second hand exposure: No alcohol intake: never current occupational status: other Travel in the last 8 weeks?: None household members: spouse housing: house current occupational exposures/hazards: No caffeine: No Have you lived/traveled outside [place] in past 30 days?: No Contact w/someone who lives/traveled outside [place] past 30 days?: No Exposure to someone with infectious disease in past 14 days?: No Do you have a fever (greater than 100.4 F or 38 C)?: No Have you tested positive for COVID-19?: No Exposed to someone with COVID-19 in past 14 days?: No Do you have a sore throat?: No Do you have a cough?: No Do you have any weakness?: No Do you have any diarrhea?: No Are you experiencing any unusual bleeding?: No Do you have any muscle aches/pain?: No Do you have any abdominal pain?: No Are you experiencing loss of taste or smell?: No Other 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 Have you received the Flu Vaccine for this season: No Have you received the Pneumonia Vaccine: No Review of Systems Constitutional Constitutional: Reports chills, Reports fatigue, Denies fever(s), Reports poor appetite, Reports lethargy, Reports malaise and Reports weakness Eyes Eyes: Denies blurry vision *Cardiovascular Cardiovascular: Denies chest pain, Denies dyspnea and Denies palpitations *Respiratory Respiratory: Denies cough and Denies dyspnea *Gastrointestinal Gastrointestinal: Reports diarrhea, Reports nausea and Denies vomiting *Neurologic Neurologic: Reports weakness Endocrine Endocrine: Reports fatigue and Denies palpitations Meds Home Medications and Allergies Home Medications ?Medication ?Instructions ?Recorded ?Confirmed ?Type ondansetron 4 mg disintegrating 4 mg PO Q8H PRN Nausea #20 tabs 06/28/24 03/11/25 Rx tablet promethazine 25 mg rectal 25 mg IN Q6H PRN nausea and 06/28/24 03/11/25 Rx suppository vomiting #12 ea buspirone 7.5 mg tablet 7.5 mg PO BID #60 tabs 01/2303/11/25 Rx propranolol 20 mg tablet 20 mg PO BID #60 tabs 03/11/25 Rx trazodone 50 mg tablet See Rx Instructions .Route 0 01/23/25 03/11/25 Rx .COMPLEX #30 tabs ciprofloxacin HCl 250 mg tablet 250 mg PO Q12H 3 days #6 tabs 03/11/25 03/11/25 Rx (Cipro) phenazopyridine 100 mg tablet 100 mg PO QPC PRN pain 6 doses #6 03/11/25 03/11/25 Rx (Pyridium) tabs New Prescriptions to Start Prescriptions: Allergies Allergy/AdvReac Type Severity Reaction Status Date / Time erythromycin base Allergy Intermediate Unknown Verified 03/11/25 18:38 (ERYTHROMYCIN BASE) allergy reaction sulfamethoxazole (From Allergy Intermediate Unknown Verified 03/11/25 18:38 Bactrim) allergy reaction trimethoprim (From Bactrim) Allergy Intermediate Unknown Verified 03/11/25 18:38 allergy reaction Exam Data for Last 24 hours Vital signs and Labs for Last 24 Hours: Temp Pulse Resp BP Pulse Ox O2 Del Method 99.8 F H 120 H 17 119/72 99 Room Air 04/15/25 14:50 04/15/25 14:00 04/15/25 14:00 04/15/25 14:00 04/15/25 14:00 04/15/25 14:00 Laboratory Results - last 24 hr 04/15/25 12:58: WBC 7.0, RBC 5.02, Hgb 13.5, Hct 40.8, MCV 81.3, MCH 26.9 L, MCHC 33.1, RDW 12.9, Plt Count 206, MPV 10.3, Neut % (Auto) 83.7 H, Lymph % (Auto) 9.0 L, Person % (Auto) 5.1, Eos % (Auto) 0.9, Baso % (Auto) 0.9, Neut # (Auto) 5.9, Lymph # (Auto) 0.6 L, Person # (Auto) 0.4, Eos # (Auto) 0.1, Baso # (Auto) 0.1, PT 13.5 H, INR 1.24 H, Sodium 135 L, Potassium 4.0, Chloride 99, Carbon Dioxide 22, Anion Gap 18.0 H, BUN 16, Creatinine 1.40 H, Estimated Creat Clear 50, Estimated GFR 43 L, Est GFR ( Amer) 51 L, Glucose 104 H, Lactate 2.6 H, Calcium 8.9, Magnesium 1.5 L, Total Bilirubin 1.2, AST 34, ALT 31, Alkaline Phosphatase 45, Troponin I < 0.01, NT-Pro-B Natriuret Pep 587 H, Total Protein 8.2, Albumin 4.6, Globulin 3.6 H, Albumin/Globulin Ratio 1.3, Lipa se 29, Serum HCG, Qual Negative 04/15/25 14:19: Urine Color Yellow, Urine Appearance Clear, Urine pH 6.0, Ur Specific [place] 1.020, Urine Protein Trace, Urine Glucose (UA) Negative, Urine Ketones 1+, Urine Blood Trace-i, Urine Nitrate Negative, Urine Bilirubin 1+ A, Urine Urobilinogen 0.2, Ur Leukocyte Esterase Negative, Urine RBC None, Urine WBC None, Ur Squamous Epith Cells 10-20, Urine Bacteria 2+ I & O for Last 24 hours: Intake & Output 04/12/25 04/13/25 04/14/25 04/15/25 23:59 23:59 23:59 23:59 Intake Total 1000 / 1000 Balance 1000 / 1000 Weight 56.699 kg Constitutional Constitutional: no acute distress, average body habitus and cooperative *Routine HEENT Exam Head: Present normocephalic Eye: Present EOMI ENT: Present mucous membranes moist *Routine Neck Exam Neck: Present supple and full ROM *Routine Respiratory Exam Respiratory: Present CTA bilaterally and normal respiratory effort; Absent wheezes or crackles *Routine Cardiovascular Exam Cardiovascular: Present Normal S1, Normal S2 and tachycardia *Routine Abdominal Exam Abdominal: Present soft; Absent tenderness Comments: Hyperactive bowel sounds *Routine Rectal Exam Rectal:: deferred *Routine Genitalia Exam Genitalia:: deferred *Routine Extremities Exam Extremities: Present full ROM and pulses intact; Absent edema *Routine Skin Exam Skin: Present intact and dry; Absent rash *Routine Neurological Exam Neurological: Present alert, vision grossly intact, hearing grossly intact and normal speech Routine Psychiatric Exam Psychiatric: Present normal affect Assessment and Plan *Assessment and plan (1) Acute kidney injury: Status: Acute Category: Medical Code(s): N17.9 - Acute kidney failure, unspecified (2) Dehydration: Status: Acute Category: Medical Code(s): E86.0 - Dehydration (3) Hypomagnesemia: Status: Acute Category: Medical Code(s): E83.42 - Hypomagnesemia (4) Diarrhea: Status: Acute Category: Medical Code(s): R19.7 - Diarrhea, unspecified (5) Anxiety: Status: Acute Category: Medical Code(s): F41.9 - Anxiety disorder, unspecified (6) Depression: Status: Acute Category: Medical Code(s): F32.A - Depression, unspecified (7) Tachycardia: Status: Acute Category: Medical Code(s): R00.0 - Tachycardia, unspecified Plan Ms. Brandon is a 35-year-old female who presented to the emergency department today with complaints of nausea, diarrhea, fatigue, dizziness for approximately 2 days. She denies chest pain, shortness of breath, cough, sore throat, known fever, vomiting, constipation, urinary symptoms. Patient also denies alcohol use, drug use, tobacco use. Patient has a significant medical history of MDD/DIOGO, asthma, and UTI approximately 2 weeks ago for which she completed antibiotics. Upon presentation to the emergency department she was tachycardic, heart rate 120s, low-grade fever 99.8. Blood pressure and oxygen saturation stable. Workup in the emergency department was significant for anion gap of 18, lactic 2.6, magnesium 1.5, BNP 587, and creatinine of 1.4. Baseline creatinine appears to be 0.7. Additionally patient continues to complain of nausea and appeared overall volume depleted. I personally reviewed patient's abdomen/pelvis CT which showed some free fluid near her right ovary but otherwise unremarkable. Hospital medicine was consulted for admission for acute kidney injury and dehydration, I agreed to admit the patient. Plan of care as follows: #Acute kidney injury #Dehydration #Hypomagnesemia ? Patient's creatinine elevated at 1.4, baseline appears to be 0.7. Patient appears hypovolemic with dry mucous membrane, additionally she is tachycardic heart rate in the 120s. Patient received 1 L NS bolus in the ED, will continue with LR at 125 mL/H. Encouraged oral hydration. Patient is states she has had very little urine output over the past 24 hours. Will monitor. ?Patient has been unable to provide diarrhea sample, diarrhea panel ordered when received. Advance diet to clears. ?Zofran ordered as needed for nausea. ?Patient's magnesium low at 1.5, will replace per protocol. CBC, CMP, magnesium ordered for the a.m. #Tachycardia: Continuous cardiac telemetry placed. Patient sinus tach. #MDD/DIOGO: Will continue home medications when reconciled. Full code Clear liquid diet VTE?Lovenox Ambulate as tolerated
--- NOTE | 2025-04-15 15:51 | PC.NURSE ---
Registration notified of the need to admit the pt with the bed assignment.
--- NOTE | 2025-04-15 16:01 | PC.NURSE ---
1600 Report called to Joanne MANCIA, pending transport
--- NOTE | 2025-04-15 16:16 | PC.NURSE ---
arrived by w/c from ED
[2025-04-15] MEDS: LACTATED RINGERS 1000ML 1,000 ML 125 ML IV (16:24)
[2025-04-15 16:56] LABS: Troponin I < 0.01 ng/ml (0.00-0.034)
[2025-04-15 17:03] LABS: Reflex Lactic Add Lactic Reflex
[2025-04-15] MEDS: MAGNESIUM SULFATE IN WATER 2 GM/50 ML PIGGYBACK IV ×2 (17:17→18:16)
[2025-04-15 19:38] LABS: Lactic Acid Follow Up (RFLX 1) 2.9 mmol/L (0.7-2.1)
[2025-04-15 20:00] LABS: Troponin I < 0.01 ng/ml (0.00-0.034)
[2025-04-15] MEDS: PROMETHAZINE HCL 25MG/ML 1ML VIAL 12.5 MG IV (20:06)
[2025-04-15 20:36] LABS: Adenovirus F 40/41, stool Not Detected (NotDetected); Cyclospora Cayetanesis Not Detected (NotDetected); Plesimonas Shigalloides, PCR Not Detected (NotDetected); Salmonella, PCR Not Detected (NotDetected); Shiga-like toxin E coli Not Detected (NotDetected); Shigella Enterovasive E coli Not Detected (NotDetected); Vibrio, PCR Not Detected (NotDetected); Yersinia Entercolitica, PCR Not Detected (NotDetected)
[2025-04-15 21:24] LABS: Reflex Lactic (2 hrs) Add Lactic Reflex
[2025-04-15 22:08] LABS: Lactic Acid Follow up (RFLX 2) 1.0 mmol/L (0.7-2.1)
[2025-04-15 22:41] LABS: Clostridium Difficile A/B, PCR Detected (NotDetected)
[2025-04-15] MEDS: ACETAMINOPHEN 325MG TAB 650 MG PO (23:35)
[2025-04-16] VITALS: PULSE 120
[2025-04-16] MEDS: HYDROCODONE/APAP 5/325 MG TABLET 1 TAB PO ×2 (00:32→06:14)
[2025-04-16] MEDS: VANCOMYCIN HCL 50MG/ML 150ML KIT 125 MG PO ×3 (00:32→12:03)
--- NOTE | 2025-04-16 02:39 | PC.NURSE ---
Pt AOx4. C/o some nausea and diarrhea earlier in the shift. Stool panel came back positive for C diff. Hospitalist started pt on PO vanc. Pt c/o body aches, received prn meds per JUL. Tolerating room air. LR @ 125mL/hr. Pt reports feeling a little better after receiving meds. Currently resting in bed with eyes open. Denies pain or any additional needs. Bed is low, locked, and call light is in reach.
[2025-04-16] MEDS: LACTATED RINGERS 1000ML 1,000 ML 125 ML IV (03:48)
[2025-04-16 04:00] VITALS: BP 101/58; PULSE 80; PULSE 98; RESP 16; TEMP 36.7; O2SAT 100
[2025-04-16 06:05] LABS: Hematocrit 32.6 % (37.0-47.0); Immature Granulocytes % 0.5 %; Mean Corpuscular HGB Conc 33.7 g/dL (31.8-35.4); Mean Corpuscular Hemoglobin 27.0 pg (27.0-31.2); Mean Corpuscular Volume 80.1 fl (81-99); Nucleated Red Blood Cells % 0 %; Platelet Count 175 K/mm3 (142-424); Red Blood Count 4.07 M/mm3 (4.20-5.40); Red Cell Distribution Width-SD 37.4 fL; White Blood Count 4.4 K/mm3 (4.8-10.8)
[2025-04-16 06:14] LABS: Hemoglobin 11.0 g/dL (12.2-16.2)
[2025-04-16 06:19] LABS: Alanine Aminotransferase 23 U/L (12-78); Albumin Level 3.3 g/dl (3.5-5.0); Albumin/Globulin Ratio 1.4 (1.1-1.8); Alkaline Phosphatase 47 U/L (38-126); Anion Gap 7.7 mEq/L (5-15); Aspartate Amino Transferase 26 U/L (14-36); Bilirubin,Total 0.5 mg/dl (0.2-1.3); Blood Urea Nitrogen 5 mg/dl (7-17); Calcium 7.7 mg/dl (8.4-10.2); Carbon Dioxide 23 mmol/L (22.0-30.0); Chloride 105 mmol/L (98-107); Creatinine Clearance Estimated 99 mL/min (50-200); Creatinine,Serum 0.70 mg/dl (0.52-1.04); Estimated Glomerular Filt Rate 95 ml/min (>60); GFR (African American) 115 ML/MIN (>60); Globulin 2.3 g/dL (1.3-3.2); Glucose 95 mg/dl (74-100); Magnesium 2.0 mg/dl (1.6-2.3); Potassium 3.7 mmoL/L (3.5-5.1); Sodium 132 mmol/L (136-145); Total Protein,Serum 5.6 g/dl (6.3-8.2)
[2025-04-16 08:00] VITALS: BP 132/82; PULSE 100; PULSE 109; RESP 17; TEMP 36.8; O2SAT 99
--- NOTE | 2025-04-16 08:36 | [facility].PHAAMS2 ---
- Antimicrobial Stewardship Review culture & sensitivity review Stewardship interventions: culture & sensitivity review (C. DIFF POSITIVE. ON ORAL VANCOMYCIN.)
--- NOTE | 2025-04-16 08:37 | [facility].PHAAMS2 ---
- Antimicrobial Stewardship Review culture & sensitivity review Stewardship interventions: reviewed - no change (ON VANCOMYCIN PO)
--- NOTE | 2025-04-16 09:26 | P.DS_ITS ---
<Statement entered by Shayne Steward MD - 04/22/25 11:08> Agree with plan of care as outlined by the OIL BURNER JOURNEYMAN. General Admission date:: 04/15/25 Discharge date: 04/16/25 HPI HPI HPI: Ms. Brandon is a 35-year-old female who presented to the emergency department today with complaints of nausea, diarrhea, fatigue, dizziness for approximately 2 days. She denies chest pain, shortness of breath, cough, sore throat, known fever, vomiting, constipation, urinary symptoms. Patient also denies alcohol use, drug use, tobacco use. Patient has a significant medical history of MDD/DOIGO, asthma, and UTI approximately 2 weeks ago for which she completed antibiotics. Upon presentation to the emergency department she was tachycardic, heart rate 120s, low-grade fever 99.8. Blood pressure and oxygen saturation stable. Workup in the emergency department was significant for anion gap of 18, lactic 2.6, magnesium 1.5, BNP 587, and creatinine of 1.4. Baseline creatinine appears to be 0.7. Additionally patient continues to complain of nausea and appeared overall volume depleted. Hospital Course Hospital Course Hospital Course: Ms. Brandon is a 35-year-old female who presented to the emergency department with complaints of nausea, diarrhea, fatigue, dizziness for approximately 2 days. She denies chest pain, shortness of breath, cough, sore throat, known fever, vomiting, constipation, urinary symptoms. Patient also denies alcohol use, drug use, tobacco use. Patient has a significant medical history of MDD/DIOGO, asthma, and UTI approximately 2 weeks ago for which she completed antibiotics. Upon presentation to the emergency department she was tachycardic, heart rate 120s, low-grade fever 99.8. Blood pressure and oxygen saturation stable. Workup in the emergency department was significant for anion gap of 18, lactic 2.6, magnesium 1.5, BNP 587, and creatinine of 1.4. Baseline creatinine appears to be 0.7. Additionally patient continued to complain of nausea and appeared overall volume depleted. I personally reviewed patient's abdomen/pelvis CT which showed some free fluid near her right ovary but otherwise unremarkable. Hospital medicine was consulted for admission for acute kidney injury and dehydration, I agreed to admit the patient. Hospital course was as follows: #Acute kidney injury, resolved #Dehydration #Hypomagnesemia, resolved #C. difficile diarrhea ? Patient's creatinine elevated at 1.4 on admission, baseline appears to be 0.7. Upon admission patient appeared to be hypovolemic with dry mucous membranes. Additionally she was tachycardic heart rate in the 120s. Patient was given IV fluid bolus in the ED, continued LR at 125 mL/H. Advanced diet to clear liquids which patient was able to tolerate without issue. She still complains of intermittent abdominal spasm/pain and ongoing diarrhea. Diarrhea panel positive for C. difficile infection. Patient was initiated on oral vancomycin this morning. Patient should continue vancomycin 4 times daily orally for 10 days to complete treatment. ?Patient states overall she feels much better, mucous membranes moist. Patient states she is having intermittent nausea, discharged home with Zofran and Phenergan as needed. Additionally discharged home with Ativan 0.5-1 mg as needed for abdominal pain/spasms. ?Initial magnesium on admission was 1.5, replace per protocol?day of discharge magnesium 2.0. Kidney function significantly improved day of discharge, BUN 5, creatinine 0.70. Discussed with patient the need to continue oral hydration and have repeat BMP checked in approximately 1 week. #Tachycardia: Patient has continued to be intermittently tachycardic. Restarted patient's propranolol 20 mg twice daily. Should continue at discharge. #MDD/DIOGO: Patient takes trazodone 50 mg at bedtime as needed for sleep, continue at discharge. Total time spent on discharge 32 minutes in counseling, documentation, chart review, and direct care with patient. Exam Data for Last 24 hours Vital signs and Labs for Last 24 Hours: Temp Pulse Resp BP Pulse Ox O2 Del Method 98.2 F 109 H 17 132/82 99 Room Air 04/16/25 08:00 04/16/25 08:00 04/16/25 08:00 04/16/25 08:00 04/16/25 08:00 04/16/25 08:00 Laboratory Results - last 24 hr 04/15/25 12:58: WBC 7.0, RBC 5.02, Hgb 13.5, Hct 40.8, MCV 81.3, MCH 26.9 L, MCHC 33.1, RDW 12.9, Plt Count 206, MPV 10.3, Neut % (Auto) 83.7 H, Lymph % (Auto) 9.0 L, [place] % (Auto) 5.1, Eos % (Auto) 0.9, Baso % (Auto) 0.9, Neut # (Auto) 5.9, Lymph # (Auto) 0.6 L, [place] # (Auto) 0.4, Eos # (Auto) 0.1, Baso # (Auto) 0.1, PT 13.5 H, INR 1.24 H, Sodium 135 L, Potassium 4.0, Chloride 99, Carbon Dioxide 22, Anion Gap 18.0 H, BUN 16, Creatinine 1.40 H, Estimated Creat Clear 50, Estimated GFR 43 L, Est GFR ( Amer) 51 L, Glucose 104 H, Lactate 2.6 H, Calcium 8.9, Magnesium 1.5 L, Total Bilirubin 1.2, AST 34, ALT 31, Alkaline Phosphatase 45, Troponin I < 0.01, NT-Pro-B Natriuret Pep 587 H, Total Protein 8.2, Albumin 4.6, Globulin 3.6 H, Albumin/Globulin Ratio 1.3, Lipase 29, Serum HCG, Qual Negative 04/15/25 14:19: Urine Color Yellow, Urine Appearance Clear, Urine pH 6.0, Ur Specific Kress 1.020, Urine Protein Trace, Urine Glucose (UA) Negative, Urine Ketones 1+, Urine Blood Trace-i, Urine Nitrate Negative, Urine Bilirubin 1+ A, Urine Urobilinogen 0.2, Ur Leukocyte Esterase Negative, Urine RBC None, Urine WBC None, Ur Squamous Epith Cells 10-20, Urine Bacteria 2+ 04/15/25 14:52: SARS-CoV-2 (PCR) Not detected, Influenza Type A (PCR) Not detected, Influenza Type B (PCR) Not detected, RSV (PCR) Not detected, Rhinovirus (PCR) Not detected 04/15/25 16:12: Troponin I < 0.01 04/15/25 16:30: Stl C. cayetanensis PCR Not detected, Stool Rotavirus (PCR) Not detected, Stl Adenov F 40/41 PCR Not detected, Stool Astrovirus (PCR) Not detected, Stool Campylobacter PCR Not detected, Stl C.difficile Tox PCR Detected A, Stool Cryptosporidium PCR Not detected, Stl E.coli Shiga Tox PCR Not detected, Stool E coli O157 PCR Not detected, Stl Enterotoxigenic E PCR Not detected, Stool EPEC (PCR) Not detected, Stool EAEC (PCR) Not detected, Stl E. histolytica PCR Not detected, Stool Giardia Lamblia PCR Not detected, Stool Salmonella PCR Not detected, Stool Sapovirus (PCR) Not detected, Stl P. shigelloides PCR Not detected, Stl Shigella/EIEC PCR Not detected, St Y.enterocolitica PCR Not detected, Stool Vibrio (PCR) Not detected, Stl Vibrio cholerae PCR Not detected, Stl Norovirus GI/GII PCR Not detected 04/15/25 19:19: Lactate 2.9 H, Troponin I < 0.01 04/15/25 21:46: Lactate 1.0 04/16/25 05:50: WBC 4.4 L D, RBC 4.07 L, Hgb 11.0 L D, Hct 32.6 L, MCV 80.1 L, MCH 27.0, MCHC 33.7, RDW 13.0, Plt Count 175, MPV 10.5 H, Neut % (Auto) 75.5, Lymph % (Auto) 16.8, [place] % (Auto) 6.0, Eos % (Auto) 0.7, Baso % (Auto) 0.5, Neut # (Auto) 3.3, Lymph # (Auto) 0.7, [place] # (Auto) 0.3, Eos # (Auto) 0.0, Baso # (Auto) 0.0, Sodium 132 L, Potassium 3.7, Chloride 105, Carbon Dioxide 23, Anion Gap 7.7, BUN 5 L D, Creatinine 0.70 D, Estimated Creat Clear 99, Estimated GFR 95, Est GFR ( Amer) 115 D, Glucose 95, Calcium 7.7 L, Magnesium 2.0 D, Total Bilirubin 0.5, AST 26, ALT 23 D, Alkaline Phosphatase 47, Total Protein 5.6 L D, Albumin 3.3 L D, Globulin 2.3, Albumin/Globulin Ratio 1.4 I & O for Last 24 hours: Intake & Output 04/13/25 04/14/25 04/15/25 04/16/25 23:59 23:59 23:59 23:59 Intake Total 1599.167 / 1149.171 6430 / 1222 Output Total 200 / 200 Balance 1399.167 / 3226.598 7084 / 1222 Weight 56.416 kg Constitutional Constitutional: no acute distress *Routine HEENT Exam Head: Present normocephalic Eye: Present EOMI and PERRL ENT: Present mucous membranes moist *Routine Neck Exam Neck: Present supple; Absent lymphadenopathy *Routine Respiratory Exam Respiratory: Present CTA bilaterally *Routine Cardiovascular Exam Cardiovascular: Present RRR *Routine Abdominal Exam Abdominal: Present soft, normoactive bowel sounds and tenderness (Nonfocal) *Routine Extremities Exam Extremities: Absent cyanosis, clubbing or edema *Routine Skin Exam Skin: Present warm; Absent rash *Routine Neurological Exam Neurological: Present alert and oriented X3 Results Data Completed and Pending Labs on day of discharge: Labs from last 24 hours 04/16/25 04/15/25 04/15/25 05:50 21:46 19:19 WBC 4.4 L D RBC 4.07 L Hgb 11.0 L D Hct 32.6 L MCV 80.1 L MCH 27.0 MCHC 33.7 RDW 13.0 Plt Count 175 MPV 10.5 H Neut % (Auto) 75.5 Lymph % (Auto) 16.8 [place] % (Auto) 6.0 Eos % (Auto) 0.7 Baso % (Auto) 0.5 Neut # (Auto) 3.3 Lymph # (Auto) 0.7 [place] # (Auto) 0.3 Eos # (Auto) 0.0 Baso # (Auto) 0.0 PT INR Sodium 132 L Potassium 3.7 Chloride 105 Carbon Dioxide 23 Anion Gap 7.7 BUN 5 L D Creatinine 0.70 D Estimated Creat Clear 99 Estimated GFR 95 Est GFR ( Amer) 115 D Glucose 95 Lactate 1.0 2.9 H Calcium 7.7 L Magnesium 2.0 D Total Bilirubin 0.5 AST 26 ALT 23 D Alkaline Phosphatase 47 Troponin I < 0.01 NT-Pro-B Natriuret Pep Total Protein 5.6 L D Albumin 3.3 L D Globulin 2.3 Albumin/Globulin Ratio 1.4 Lipase Serum HCG, Qual Urine Color Urine Appearance Urine pH Ur Specific Kress Urine Protein Urine Glucose (UA) Urine Ketones Urine Blood Urine Nitrate Urine Bilirubin Urine Urobilinogen Ur Leukocyte Esterase Urine RBC Urine WBC Ur Squamous Epith Cells Urine Bacteria Stl C. cayetanensis PCR Stool Rotavirus (PCR) Stl Adenov F 40/41 PCR Stool Astrovirus (PCR) Stool Campylobacter PCR Stl C.difficile Tox PCR Stool Cryptosporidium PCR Stl E.coli Shiga Tox PCR Stool E coli O157 PCR Stl Enterotoxigenic E PCR Stool EPEC (PCR) Stool EAEC (PCR) Stl E. histolytica PCR Stool Giardia Lamblia PCR Stool Salmonella PCR Stool Sapovirus (PCR) Stl P. shigelloides PCR Stl Shigella/EIEC PCR St Y.enterocolitica PCR Stool Vibrio (PCR) Stl Vibrio cholerae PCR Stl Norovirus GI/GII PCR SARS-CoV-2 (PCR) Influenza Type A (PCR) Influenza Type B (PCR) RSV (PCR) Rhinovirus (PCR) 04/15/25 04/15/25 04/15/25 16:30 16:12 14:52 WBC RBC Hgb Hct MCV MCH MCHC RDW Plt Count MPV Neut % (Auto) Lymph % (Auto) [place] % (Auto) Eos % (Auto) Baso % (Auto) Neut # (Auto) Lymph # (Auto) [place] # (Auto) Eos # (Auto) Baso # (Auto) PT INR Sodium Potassium Chloride Carbon Dioxide Anion Gap BUN Creatinine Estimated Creat Clear Estimated GFR Est GFR ( Amer) Glucose Lactate Calcium Magnesium Total Bilirubin AST ALT Alkaline Phosphatase Troponin I < 0.01 NT-Pro-B Natriuret Pep Total Protein Albumin Globulin Albumin/Globulin Ratio Lipase Serum HCG, Qual Urine Color Urine Appearance Urine pH Ur Specific Kress Urine Protein Urine Glucose (UA) Urine Ketones Urine Blood Urine Nitrate Urine Bilirubin Urine Urobilinogen Ur Leukocyte Esterase Urine RBC Urine WBC Ur Squamous Epith Cells Urine Bacteria Stl C. cayetanensis PCR Not detected Stool Rotavirus (PCR) Not detected Stl Adenov F 40/41 PCR Not detected Stool Astrovirus (PCR) Not detected Stool Campylobacter PCR Not detected Stl C.difficile Tox PCR Detected A Stool Cryptosporidium PCR Not detected Stl E.coli Shiga Tox PCR Not detected Stool E coli O157 PCR Not detected Stl Enterotoxigenic E PCR Not detected Stool EPEC (PCR) Not detected Stool EAEC (PCR) Not detected Stl E. histolytica PCR Not detected Stool Giardia Lamblia PCR Not detected Stool Salmonella PCR Not detected Stool Sapovirus (PCR) Not detected Stl P. shigelloides PCR Not detected Stl Shigella/EIEC PCR Not detected St Y.enterocolitica PCR Not detected Stool Vibrio (PCR) Not detected Stl Vibrio cholerae PCR Not detected Stl Norovirus GI/GII PCR Not detected SARS-CoV-2 (PCR) Not detected Influenza Type A (PCR) Not detected Influenza Type B (PCR) Not detected RSV (PCR) Not detected Rhinovirus (PCR) Not detected 04/15/25 04/15/25 14:19 12:58 WBC 7.0 RBC 5.02 Hgb 13.5 Hct 40.8 MCV 81.3 MCH 26.9 L MCHC 33.1 RDW 12.9 Plt Count 206 MPV 10.3 Neut % (Auto) 83.7 H Lymph % (Auto) 9.0 L [place] % (Auto) 5.1 Eos % (Auto) 0.9 Baso % (Auto) 0.9 Neut # (Auto) 5.9 Lymph # (Auto) 0.6 L [place] # (Auto) 0.4 Eos # (Auto) 0.1 Baso # (Auto) 0.1 PT 13.5 H INR 1.24 H Sodium 135 L Potassium 4.0 Chloride 99 Carbon Dioxide 22 Anion Gap 18.0 H BUN 16 Creatinine 1.40 H Estimated Creat Clear 50 Estimated GFR 43 L Est GFR ( Amer) 51 L Glucose 104 H Lactate 2.6 H Calcium 8.9 Magnesium 1.5 L Total Bilirubin 1.2 AST 34 ALT 31 Alkaline Phosphatase 45 Troponin I < 0.01 NT-Pro-B Natriuret Pep 587 H Total Protein 8.2 Albumin 4.6 Globulin 3.6 H Albumin/Globulin Ratio 1.3 Lipase 29 Serum HCG, Qual Negative Urine Color Yellow Urine Appearance Clear Urine pH 6.0 Ur Specific Kress 1.020 Urine Protein Trace Urine Glucose (UA) Negative Urine Ketones 1+ Urine Blood Trace-i Urine Nitrate Negative Urine Bilirubin 1+ A Urine Urobilinogen 0.2 Ur Leukocyte Esterase Negative Urine RBC None Urine WBC None Ur Squamous Epith Cells 10-20 Urine Bacteria 2+ Stl C. cayetanensis PCR Stool Rotavirus (PCR) Stl Adenov F 40/41 PCR Stool Astrovirus (PCR) Stool Campylobacter PCR Stl C.difficile Tox PCR Stool Cryptosporidium PCR Stl E.coli Shiga Tox PCR Stool E coli O157 PCR Stl Enterotoxigenic E PCR Stool EPEC (PCR) Stool EAEC (PCR) Stl E. histolytica PCR Stool Giardia Lamblia PCR Stool Salmonella PCR Stool Sapovirus (PCR) Stl P. shigelloides PCR Stl Shigella/EIEC PCR St Y.enterocolitica PCR Stool Vibrio (PCR) Stl Vibrio cholerae PCR Stl Norovirus GI/GII PCR SARS-CoV-2 (PCR) Influenza Type A (PCR) Influenza Type B (PCR) RSV (PCR) Rhinovirus (PCR) DS: Diagnosis Discharge Diagnosis (1) Acute kidney injury: Status: Acute Code(s): N17.9 - Acute kidney failure, unspecified (2) Dehydration: Status: Acute Code(s): E86.0 - Dehydration (3) Hypomagnesemia: Status: Acute Code(s): E83.42 - Hypomagnesemia (4) Diarrhea: Status: Acute Code(s): R19.7 - Diarrhea, unspecified (5) Anxiety: Status: Acute Code(s): F41.9 - Anxiety disorder, unspecified (6) Depression: Status: Acute Code(s): F32.A - Depression, unspecified (7) Tachycardia: Status: Acute Code(s): R00.0 - Tachycardia, unspecified (8) C. difficile diarrhea: Status: Acute Code(s): A04.72 - Enterocolitis due to Clostridium difficile, not specified as recurrent Meds Home Medications and Allergies Home Medications ?Medication ?Instructions ?Recorded ?Confirmed ?Type propranolol 20 mg tablet 20 mg PO BID #60 tabs 04/15/25 Rx trazodone 50 mg tablet 50 mg PO HS PRN Sleep 04/15/25 History lorazepam 1 mg tablet (Ativan) 1 mg PO TID PRN anxiety #9 tabs 04/16/25 Rx ondansetron 4 mg disintegrating 4 mg PO Q6H PRN nausea and 04/16/25 Rx tablet vomiting #14 tabs promethazine 25 mg tablet 25 mg PO QID PRN nausea and 04/16/25 Rx vomiting #10 tabs vancomycin 50 mg/mL oral solution 125 mg (2.5 mL) PO Q ID 10 days 04/16/25 Rx (Firvanq) #100 mL New Prescriptions to Start Prescriptions: lorazepam [Ativan] Kelsie Calderón ondansetron Kelsie Calderón promethazine Kelsie Calderón Allergies Allergy/AdvReac Type Severity Reaction Status Date / Time erythromycin base Allergy Intermediate Unknown Verified 03/11/25 18:38 (ERYTHROMYCIN BASE) allergy reaction sulfamethoxazole (From Allergy Intermediate Unknown Verified 03/11/25 18:38 Bactrim) allergy reaction trimethoprim (From Bactrim) Allergy Intermediate Unknown Verified 03/11/25 18:38 allergy reaction Discharge Plan Disposition Patient Disposition: Home, Self-Care Condition: Good Follow up Plan Follow up with: Yenifer Gonzales APRN [Primary Care Provider, Medical] - 04/30/25 3:30 pm Prescriptions/Medication Reconciliation: New lorazepam [Ativan] 1 mg tablet 1 mg PO TID PRN (Reason: anxiety) Qty: 9 0RF Rx Instructions: take half to one tablet as needed for abdominal pain/ spasm promethazine 25 mg tablet 25 mg PO QID PRN (Reason: nausea and vomiting) Qty: 10 0RF Rx Instructions: take half to 1 tablet as needed for nausea/vomiting ondansetron 4 mg tablet,disintegrating 4 mg PO Q6H PRN (Reason: nausea and vomiting) Qty: 14 0RF vancomycin [Firvanq] 50 mg/mL Recon Soln 125 mg PO QID 10 Days Qty: 100 0RF Continued propranolol 20 mg tablet 20 mg PO BID Qty: 60 2RF trazodone 50 mg tablet 50 mg PO HS PRN (Reason: Sleep) Problem Reconciliation Problems Reviewed?: Yes Patient Discharge Instructions ACTIVITY: Continue current activity DIET: other Additional Instructions: [place] Diet, BRAT diet Patient Instructions: [place] Diet, DI for Dehydration in Adults, Acute Kidney Injury, DI for Diarrhea and Traveler's Diarrhea in Adults Print Language: Qatari Providers Primary Care Provider: Yenifer Gonzales Admit Provider: Miguel Velasco Attending Provider: Miguel Velasco
--- NOTE | 2025-04-18 10:57 | SW/DCPLANNER ---
Addendum entered by Vidya Vargas 04/18/25 11:07: Patient called back stating that she was feeling much better. 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 No further needs at this time. Original Note: Phoned patient x2. Left messages with name and call back number each time. Patricia FRIEDMAN Flat Screen Worker
== END 2025-04-16 12:40 | disposition home or self-care (01) ==
LOC: ER 15:43 → 2ND 15:53
PROVIDERS: Physician Assistant; Admitting Provider Internal Medicine Adolescent Medicine; Emergency Provider Student in an Organized Health Care Education/Training Program; PCP Nurse Practitioner Family; Visit Provider Internal Medicine Adolescent Medicine
DX: N17.9 Acute kidney failure, unspecified (principal); E86.0 Dehydration; E83.42 Hypomagnesemia; A04.72 Enterocolitis due to Clostridium difficile, not specified as recurrent; Z79.899 Other long term (current) drug therapy; Z88.1 Allergy status to other antibiotic agents; Z88.2 Allergy status to sulfonamides; F32.9 Major depressive disorder, single episode, unspecified; F41.1 Generalized anxiety disorder; Z87.440 Personal history of urinary (tract) infections; J45.909 Unspecified asthma, uncomplicated; Z89.029 Acquired absence of unspecified finger(s); G43.909 Migraine, unspecified, not intractable, without status migrainosus
CPT/HCPCS: 36415; 71045; 74177; 80053; 81001; 83605; 83690; 83735; 83880; 84484; 84703; 85025; 85610; 87086; 87507; 87631; 93005; 96361; 96365; 96366; 96372; 96375; 96376; 99285; G0378; J0131; J1650; J2405; J2550; J3475; J7030; J7120; Q9967

== ENCOUNTER 2025-04-23 16:47 | Outpatient (CLI) | payer BC, SELFPAY ==
--- OUTSIDE RECORDS SUMMARY | 2025-03-04 09:00 | XMS_ITS ---
Author Organization [facility] Address [address] [facility] [address] [place] [address] Care Team Providers Care Architectural Project Manager Name Role Phone Romina Gann Unavailable [phone] Marisabel Sauerfer Unavailable [phone] Allergies Allergen (clinical drug ingredient) Drug/Non Drug Allergy documented on EMR Reaction Allergy Type Onset Date Status sulfamethoxazole / trimethoprim Bactrim Unknown Drug Allergy Active erythromycin Erythromycin Unknown Drug Allergy A ctive Results Component Value Reference Range Notes Pap w/reflex HPV Reviewed date:03/12/2025 07:44:52 PM Interpretation:Normal Performing Lab:Jovita BISHOP [facility] - [place] CLIA ID [id number], [address] [facility], [address], [place] [address], Director - Von Avelar MD Notes/Report: Any Nucleic Acid Amplification testing is performed on the [facility]. Diagnosis: Negative for intraepithelial lesion or malignancy. AP results FINAL PATIENT REGISTRATION CLERK CYTOLOGY REPORT DIAGNOSIS: Negative for intraepithelial lesion or malignancy. Specimen Adequacy: Satisfactory for interpretation with endocervical/transformat ion zone component present. Pertinent Clinical History/History of Surgery: Not provided Collection Technique: Not provided Results of Last Pap: Not provided LMP: * Date of Last Pap: Not provided Specimen Source: Cervical/Endocervical Specimen Type: ThinPrep Other Gynecological Patient Information: Not provided Recommendation: Follow-up based on current clinical guidelines and/or clinical consideration. Screening note: This specimen has been analyzed by the ThinPreINPHI Imaging System, an interactive computer system which assists the lab in screening of ThinPrep Pap Test slides. Following imaging, the slide was reviewed by a Control Inspector and/or Pathologist. Negative Educational Note: The pap screening test aids in the detection of premalignant and malignant states of the cervix. False positive and negative results may occur. It is not a diagnostic test. If abnormal cells are reported, follow-up based on current clinical guidelines and/or clinical consideration is recommended. Cindy Adams Control Inspector CPT Codes: 57006 ICD Codes: Z01.419 REASON FOR VISIT Annual Medications Medication SIG (Take, Route, Frequency, Duration) Notes Start Date End Date Status Propranolol HCl 20 MG Tablet Oral; Duration: 30 Days Acti ve traZODone HCl 50 MG Tablet Oral; Duration: 30 Days Active Social History Tobacco Use: Social History Observation Description Date Details (start date - stop date) Never Smoker NA - NA Sex Assigned At : Social History Observation Description Sex Assigned At Female Social History Drugs/Alcohol: Social Info Question Answer Notes Drugs Have you used drugs other than those for medical reasons in the past 12 months? No Steroid Use Have you used anabolic (body building) st eroids? No Alcohol Screen Did you have a drink containing alcohol in the past year? No Points 0 Interpretation Negative Tobacco Use: Social Info Question Answer Notes Tobacco Use/Smoking Are you a nonsmoker Vital Signs Blood pressure systolic 104 mm Hg 03/04/20 25 Blood pressure diastolic 72 mm Hg 025 Height 64 in 03/04/2025 Weight 127.6 lbs 03/04/2025 BMI 21.9 kg/m2 03/04/2025 Encounters Encounter Location Date Provider Diagnosis [facility] [address] [facility] [address] [place] [address] 03/04/2025 Amina Sauer [employer] exam without abnormal findings Z01.419 Assessments Encounter Date Diagnosis (ICD Code) Assessment Notes Treatment Notes Treatment Clinical Notes Section Notes 03/04/2025 [employer] exam without abnormal findings (ICD-10 - Z01.419) Plan Of Treatment Next Appt Details Provider Name:Amina Sauer , 03/10/2026 01:00:00 PM, [address] [facility] [address], [address], History and Physical Notes * Examination Category Sub-Category Detail Notes Category Not es Genitourinary Examination - Female VAGINA: Normal appearance for age, n o significant discharge, lesions, or masses present CERVIX: Appearance normal, n o lesions present, no significant discharge, no tenderness to cervical motion UTERUS: Size normal, no palp able masses, mobile, nontender to palpation BLADDER: Normal and nontender to palpation ADNEXA: No masses or tendern ess bilaterally EXTERNAL GENITALIA: Normal appearance fo r age, no erythema or skin lesions present URETHRA/URETHRAL MEATUS: Normal in appea lupe, nontender without mass effect PERINEUM: Normal in appearance without lesion PELVIC LYMPH NODES: No lymphadenopathy General Examination GENERAL APPEARANCE: Well dev eloped, well nourished, alert in no acute distress NEURO/PSYCH: Oriented to person, place, and time. Mood pleasant, normal affect CARDIOPULMONARY: Respiratory effort i s even and unlabored ABDOMINAL/GASTROINTESTINAL: Abdomen nont dianna, no masses palpated Clinical Account Manager Clinical Account Manager CSnyder Breast Examination BREASTS: Breast normal . No evidence of mass, skin changes, nipple retraction or discharge AXILLARY LYMPH NODES: No lymphadenopathy Progress Notes * Bo BRANDONArtemOB: 9 (35 yo F)Acc No.[id number]:03/04/2025 Progress Note Patient: Tawana Trinh Provider: Jax Sauer MD :1990 A ge:35 Y S ex:Female Date:03/04/2025 Address:[address] [place], [place] [id number] Subjective: * Chief Complaints: * A nnual * HPI: A nnual: 35 year old female presents with c/o Annual Exam. * 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: High blood pressure on control pills Migraines Asthma Female infertility of tubal origin Insomnia 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 Verified * [place] History: P ap Smear History: D ate of Last Pap/HPV: neg M enstrual History: C urrently having menstrual cycles? Y es L MP: 0 02/07/2025 L ength Between Cycles: 2 1-32 Days L ength of Flow: 2 -7 Days F low Volume: M oderate C ramping Associated with Period: M oderate Discomfort L MP: 0 10/02/2022 T myah between periods: 2 6 days apart S exual Activity/Contraception: E filiberto been sexually active? Y es C ontraception: C ondoms L ast Pap Smear/HPV Date (Historical) 0 07/17/2021 negative.. * OB History: P regnancy History (GPA) Total Pregnancies 2 Full Term 2 Premature 0 AB. Induced 0 AB. Spontaneous 0 AB. Elective 0 AB. Therapeutic 0 Ectopics 0 Multiple Births 0 Living 2 Vaginal Deliveries 1 C-Sections 1 G P : 2 Para: 2 P regnancy # 1: , M, CS, 6.12#, [place]. Severe GHTN. Mag. 39 weeks.? P regnancy # 2: 0 09/28/2023, , Male, 7.[address] Laura Freeman. * Surgical History: Cystoscopy Dx. LSC, Ovarian Cystectomy 2016 Primary Caesarean Section 08/01/2015 Surgical History verified. * Hospitalization/Major Diagno stic Procedure: L&D - [facility]. C/S, Hospitalization Verified. * Family History: M other: diagnosed with Heart disease, Unspecified essential hypertension, Unspecified nonpsychotic mental disorder following organic brain damage. F ather: diagnosed with Heart disease, Diabetes mellitus without mention of complication, type II or unspecified type, not stated as uncontrolled, Unspecified essential hypertension. M aternal Grand Mother: diagnosed with Ovarian cancer, Unspecified cerebral artery occlusion with cerebral infarction, Thromboembolism. M aternal Grand Father: diagnosed with Heart disease, Unspecified essential hypertension. P aternal Grand Mother: diagnosed with Breast cancer. P aternal Grand Father: diagnosed with Heart disease, Diabetes mellitus without mention of complication, type II or unspecified type, not stated as uncontrolled.?2 son(s) - healthy. . F amily History Verified.. Nothing else documented. * Social History: T obacco Use: T obacco Use/Smoking A re you a n onsmoker D rugs/Alcohol: D rugs H ave you used drugs other than those for medical reasons in the past 12 months? N o Alcohol Screen D id you have a drink containing alcohol in the past year? N o P oints 0 I nterpretation N egative Steroid Use H ave you used anabolic (body building) steroids? N o S ocial History Verified. * Medications: T akingPropranolol HCl 20 MG Tablet Oral traZODone HCl 50 MG Tablet Oral Taking Propranolol HCl 20 MG Tablet Oral Taking traZODone HCl 50 MG Tablet Oral DiscontinuedFerrous Sulfate 325 (65 Fe) MG Tablet Delayed Release 1 tablet Orally Once a day Furosemide 20 MG Tablet 1 tablet Orally Once a day ( Vit-Fe Fumarate-FA) 28-0.8 MG Tablet 1 tablet Orally Once a day Unisom Vitamin B6 50 MG Tablet 1 tablet Orally Medication List reviewed and reconciled with the patientDiscontinued Ferrous Sulfate 325 (65 Fe) MG Tablet Delayed Release 1 tablet Orally Once a day Discontinued Furosemide 20 MG Tablet 1 tablet Orally Once a day Discontinued ( Vit-Fe Fumarate-FA) 28-0.8 MG Tablet 1 tablet Orally Once a day Discontinued Unisom Discontinued Vitamin B6 50 MG Tablet 1 tablet Orally Medication List reviewed and reconciled with the patient * Allergies: B actrimErythromycinyesAllergies Verified. Objective: * Vitals: B P:104/72mm Hg, Ht: 64 in, Wt:127.6lbs, BMI:21.9Index. * Examination: G eneral Examination: GENERAL APPEARANCE: W ell developed, well nourished, alert in no acute distress. NEURO/PSYCH: O riented to person, place, and time. Mood pleasant, normal affect. CARDIOPULMONARY: R espiratory effort is even and unlabored. ABDOMINAL/GASTROINTESTINAL: A bdomen nontender, no masses palpated. B reast Examination: BREASTS: B reast normal. No evidence of mass, skin changes, nipple retraction or discharge. AXILLARY LYMPH NODES: N o lymphadenopathy. G enitourinary Examination - Female: EXTERNAL GENITALIA: N ormal appearance for age, no erythema or skin lesions present. URETHRA/URETHRAL MEATUS: N ormal in appearance, nontender without mass effect. BLADDER: N ormal and nontender to palpation. VAGINA: N ormal appearance for age, no significant discharge, lesions, or masses present. CERVIX: A ppearance normal, no lesions present, no significant discharge, no tenderness to cervical motion. UTERUS: S ize normal, no palpable masses, mobile, nontender to palpation. ADNEXA: N o masses or tenderness bilaterally. PERINEUM: N ormal in appearance without lesion. PELVIC LYMPH NODES: N o lymphadenopathy. C haperone: Clinical Account Manager C Coy. Assessment: * Assessment: 1. G yn exam without abnormal findings - Z01.419 (Primary) Plan: * Treatment: * Procedure Codes: 9 9459 Pelvic examination [List separately in addition to code for primary procedure] * Preventive Medicine: Counseling: R ozzie Preventative Care: Sera rollins ACOG guidelines for preventative exams and pap smears. Preventative health guidelines discussed breast cancer, colon cancer, and osteoporosis screening and prevention as appropriate. Counseled on safe sex practices including control and prevention of sexually transmitted infections as appropriate. B DC care goal follow-up plan: BMI management provided Y es Discussed importance of healthy BMI?Yes S moking: Type of Tobacco Use Cessation Counseling provided C daria if indicated Billing Information: * Visit Code: 36618 Est Pt Annual 18-39 yr old. * Procedure Codes: 10570 Pelvic examination [List separately in addition to code for primary procedure]. * Sign off status: Completed Visit Status: C HK (Check Out) true * Provider: Jax Sauer MD Date: Generated for Elenita galvan/Ford/Zenobiaitting on: 06/23/2024 04:49 PM EST
[2025-04-23 16:38] LABS: Microscopic, Urine URINE MICROSCOPIC (MICROSCOPIC)
--- OUTSIDE RECORDS SUMMARY | 2025-04-23 16:50 | XMS_ITS | Patient Health Record ---
Author Organization [facility] Address [address] [place] [address] Care Team Providers Care Gaming Cage Worker Name Role Phone Romina Gann Unavailable [phone] Amina Sauer Unavailable [phone] Allergies Allergen (clinical drug ingredient) Drug/Non Drug Allergy documented on EMR Reaction Allergy Type Onset Date Status sulfamethoxazole / trimethoprim Bactrim Unknown Drug Allergy Active erythromycin Erythromycin Unknown Drug Allergy A ctive Results Component Value Reference Range Notes Pap w/reflex HPV Reviewed date:03/12/2025 07:44:52 PM Interpretation:Normal Performing Lab:Jovita BISHOP [facility] - [place] CLIA ID [id number], [address], [address], [place] [address], Director - Von Avelar MD Notes/Report: Any Nucleic Acid Amplification testing is performed on the Sticky. Diagnosis: Negative for intraepithelial lesion or malignancy. AP results FINAL SENIOR SPECIALIST CYTOLOGY REPORT DIAGNOSIS: Negative for intraepithelial lesion [...] This specimen has been analyzed by the [employer] Imaging System, an interactive computer system which assists the lab in screening of ThinPrep Pap Test slides. Following imaging, the slide was reviewed by a Ornamental Metal Erector Apprentice and/or Pathologist. Negative Educational Note: The pap screening test aids in the detection of premalignant and malignant states of the cervix. False positive and negative results may occur. It is not a diagnostic test. If abnormal cells are reported, follow-up based on current clinical guidelines and/or clinical consideration is recommended. Cindy Adams Ornamental Metal Erector Apprentice CPT Codes: 29540 ICD Codes: Z01.419 Reason For Referral No Information Medications Medication [...] Risk Notes Problem History of gestational hypertension (082327396) History of gestational hypertension (Z87.59) Active confirmed Problem Third trimester (34639459) Encounter for supervision of other normal , third trimester (Z34.83) Active confirmed Problem Abnormal glucose tolerance in mother complicating , childbirth AND/OR puerperium (31782773) Abnormal glucose affecting (O99.810) Active confirmed Problem History of section (485267719) Previous delivery affecting (O34.219) Active confirmed Problem Asymptomatic bacteriuria (454029193) Asymptomatic bacteriuria (R82.71) Active confirmed Vital Signs Blood pressure diastolic 72 mm Hg 03/04/2025 Height 64 in 03/04/2025 Blood pressure systolic 104 mm Hg 03/04/2025 Weight 127.6 lbs 03/04/2025 BMI 21.9 kg/m2 03/04/2025 Encounters Encounter Location Date Provider Diagnosis [facility] [address] [place] [address] 03/04/2025 Amina Sauer Cardiac Nurse Practitioner exam without abnormal findings Z01.419 Assessments Encounter Date Diagnosis (ICD Code) Assessment Notes Treatment Notes Treatment Clinical Notes Section Notes 03/04/2025 Cardiac Nurse Practitioner exam without abnormal findings (ICD-10 - Z01.419) Plan Of Treatment Next Appt Details Provider Name:Amina Sauer , 03/10/2026 01:00:00 PM, [address], [place], [address], Insurance Providers Payer Name Payer Address Payer Phone Subscriber Number Group Number Insured Name Patient Relationship to Insured Coverage Start Date Coverage End Date Yumiko MCKEON [address] [place] [address] [id number] Tawana Brandon Self - patient is the insured 2 Medical (General) History 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 History ICD Code high blood pressure on control pil ls migraines asthma 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 LSC, Ovarian Cystectomy 2016 Primary Caesarean Section 08/01/2015 Hospitalization History Reason Date(Month/Year) L&D - [facility] C/S,
--- OUTSIDE RECORDS SUMMARY | 2025-04-23 16:50 | XMS_ITS | Clinical Summary ---
Author Organization [facility] Address [address] [place] [address] Care Team Providers Care Clinical Unit Coordinator Name Role Phone Sofia Michelle MD Primary Care Provider Allergies Active Allergy Reactions Criticality Noted Date [...] = 0.6 oz pur e alcohol) UNKNOWN [facility] Utilities Answer Date Recorded In the [...] and heating? Not hard at all 09/27/2023 [facility] - Occupational Stress [...] things needed for daily living? No 09/27/2023 [place] Depression Scale Answer Date Recorded [place] Depression Scale Total 3 10/10/2023 The thought [...] GED or equivalent No 09/27/2023 Preferred Language Indian 09/27/2023 PHQ-2 Answer Date Recorded Retired PHQ-9: [...] Most Recently Relevant to Health Maintenance Insurance [facility] [employer] BLUE [employer] PPO Advance Directives [...] Of Support Discussed With: Patient Care Teams Clinical Unit Coordinator Relationship Specialty Start Date End Date Sofia Michelle MD [address] [place] [address] PCP - General Internal Medicine 12/24/22
[2025-04-23 17:11] LABS: Hematocrit 32.2 % (37.0-47.0); Hemoglobin 10.4 g/dL (12.2-16.2); Immature Granulocytes % 4.5 %; Mean Corpuscular HGB Conc 32.3 g/dL (31.8-35.4); Mean Corpuscular Hemoglobin 26.7 pg (27.0-31.2); Mean Corpuscular Volume 82.6 fl (81-99); Nucleated Red Blood Cells % 0 %; Platelet Count 444 K/mm3 (142-424); Red Blood Count 3.90 M/mm3 (4.20-5.40); Red Cell Distribution Width-SD 40.5 fL; White Blood Count 7.5 K/mm3 (4.8-10.8)
[2025-04-23 17:41] LABS: Chloride 102 mmol/L (98-107); Potassium 4.5 mmoL/L (3.5-5.1); Sodium 142 mmol/L (136-145)
[2025-04-23 17:44] LABS: Blood Urea Nitrogen 6 mg/dl (7-17); Creatinine,Serum 0.80 mg/dl (0.52-1.04); Estimated Glomerular Filt Rate 81 ml/min (>60); GFR (African American) 98 ML/MIN (>60)
[2025-04-23 17:45] LABS: Anion Gap 16.5 mEq/L (5-15); Calcium 8.6 mg/dl (8.4-10.2); Carbon Dioxide 28 mmol/L (22.0-30.0); Glucose 90 mg/dl (74-100)
[2025-04-23 18:44] LABS: Bilirubin,Urine Negative (Negative); Color,Urine YELLOW (Yellow); Glucose,Urine (UA) Negative (Negative); Ketones,Urine Negative (Negative); Leukocyte Esterase,Urine Negative (Negative); PH,Urine 7.5 (5.0-8.5); Protein,Urine Negative (Negative); Specific Gravity, Urine 1.015 (1.005-1.030); Urobilinogen,Urine 0.2 EU/dl (0.2)
[2025-04-23 19:00] LABS: Amorphous Sediment,Urine 1+ /lpf; Bacteria,Urine 1+ /lpf; Mucus,Urine 1+ /lpf; RBC,Urine Occasional #/hpf (0-3)
== END 2025-04-23 23:59 | disposition home or self-care (01) ==
LOC: LAB.DROPOF 16:47
PROVIDERS: PCP Nurse Practitioner Family; Visit Provider Nurse Practitioner Family
DX: E86.0 Dehydration (principal); A04.72 Enterocolitis due to Clostridium difficile, not specified as recurrent; N17.9 Acute kidney failure, unspecified; E87.1 Hypo-osmolality and hyponatremia; R53.83 Other fatigue
CPT/HCPCS: 80048; 81001; 85025; 87086

== ENCOUNTER 2025-05-01 09:07 | Outpatient (CLI) | payer BC, SELFPAY ==
--- OUTSIDE RECORDS SUMMARY | 2025-04-29 17:30 | XMS_ITS | Encounter Summary ---
[facility] Organization [facility] Address [address] [place] [address] Care Team Providers Care Lost And Found Clerk Name Role Phone Sofia Michelle MD Primary Care Provider [phone] Encounter Details Date Type Department Care Team (Late st Contact Info) Description 04/29/2025 5:30 PM EST Lab [facility] [address] [place] [id number] Old vaginal laceration Social History Tobacco Use Types Packs/Day Years Used Date Smoking Tobacco: Never Passive Smoke Exposure: Never Alcohol Use Standard Drinks/Week Comments Never 0 (1 standard drink = 0.6 oz pur e alcohol) UNKNOWN [facility] Utilities Answer Date Recorded In the past 12 months has [place] electric, gas, oil, or water company threatened [...] and heating? Not hard at all 09/27/2023 [facility] [place] of Occupat ional Health - Occupational Stress [...] things needed for daily living? No 09/27/2023 [place] Depression Scale Answer Date Recorded [place] Depression Scale Total 3 10/10/2023 The thought [...] GED or equivalent No 09/27/2023 Preferred Language Argentine 09/27/2023 PHQ-2 Answer Date Recorded Retired PHQ-9: [...] file Not on file Not on file documented as of this encounter Plan of Treatment Not on file documented as of this encounter Procedures Procedure Name Priority Date/Time Associated Diagnosis Comments URINE CULTURE Routine 04/29/2025 4:00 PM EST Old vaginal laceration documented in this encounter Results * Urine Culture - Urine, Urine, Clean Catch (04/29/2025 4:00 PM EST) Urine Culture No growth SHAYLA 05/01/2025 4:07 AM EST [facility] Urine Urine specimen obtained by clean catch procedure / Unknown Collection / Unknown 04/29/2025 4:00 PM EST 04/29/2025 4:00 PM EST us Dorita Mathew LEVEL VIAL INSIDE GRINDER MICROBIOLOGY - GENERAL ORD ERABLES Final Result [facility]
[address] [place] [address], documented in this encounter Visit Diagnoses Diagnosis Old vaginal laceration documented in this encounter Care Teams Lost And Found Clerk Relationship Specialty Start Date End Date Sofia Michelle MD [address] [place] [address] PCP - General Internal Medicine 12/24/22 documented as of this encounter
--- OUTSIDE RECORDS SUMMARY | 2025-05-01 09:09 | XMS_ITS | Clinical Summary ---
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 Name Role Phone Sofia Michelle MD Primary Care Provider [phone] Allergies Active Allergy Reactions Criticality Noted Date [...] Noted Date Diagnosed Date Gestational hypertension 09/27/2023 Encounters Date Type Department Care Team Description 04/29/2025 5:30 PM EST Lab [facility] [address] [place] [address] Old vaginal laceration from Last 3 Months Family History 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 Relation Name Comments [...] = 0.6 oz pur e alcohol) UNKNOWN [facility] Utilities Answer Date Recorded In the past 12 months has [employer], gas, oil, or water [email or web address] threatened to shut off services in your [...] and heating? Not hard at all 09/27/2023 [facility] [place] of Occupat ional Health - Occupational Stress [...] things needed for daily living? No 09/27/2023 [place] Depression Scale Answer Date Recorded [place] Depression Scale Total 3 10/10/2023 The thought [...] GED or equivalent No 09/27/2023 Preferred Language Swedish 09/27/2023 PHQ-2 Answer Date Recorded Retired PHQ-9: [...] 04/29/2025 4:00 PM EST Old vaginal laceration HEPATITIS C ANTIBODY Routine 02/22/2023 from Last 3 Months or Most Recently Relevant to Health Maintenance Results * Urine Culture - Urine, Urine, Clean Catch (04/29/2025 4:00 PM EST) Urine Culture No growth SHAYLA 05/01/2025 4:07 AM EST [facility] Urine Urine specimen obtained by clean catch procedure / Unknown Collection / Unknown 04/29/2025 4:00 PM EST 04/29/2025 4:00 PM EST Dorita Mathew VALET MICROBIOLOGY - GENERAL ORD ERABLES Final Result [facility]
[address] [place] [address], * Hepatitis C Antibody (02/22/2023) External Hepatitis C Ab neg Blood Historical Provider LAB BLOOD ORDERABLES Mi l Result from Last 3 Months or Most Recently Relevant to Health Maintenance Insurance N [place] DAY [id number] [facility] Subscriber Plan / Payer (Ef fective 2023-Present) Name:Tawana Brandon Relation to Subscriber:Spouse Name:OANH BRANDON Date of :1989 (Home) Address: [address] [place] [address] [place] [address] Payer ID:[id number] (NAIC) Type:Not on file Address: [facility] [id number] [place] [id number] Advance Directives * CPR (Attempt to Resuscitate) [...] Of Support Discussed With: Patient Care Teams Electrical Mechanic Relationship Specialty Start Date End Date Sofia Michelle MD [address] [place] [address] PCP - General Internal Medicine 12/24/22
[2025-05-01 09:23] LABS: Hematocrit 36.0 % (37.0-47.0); Hemoglobin 11.6 g/dL (12.2-16.2); Immature Granulocytes % 0.2 %; Mean Corpuscular HGB Conc 32.2 g/dL (31.8-35.4); Mean Corpuscular Hemoglobin 27.1 pg (27.0-31.2); Mean Corpuscular Volume 84.1 fl (81-99); Nucleated Red Blood Cells % 0 %; Platelet Count 362 K/mm3 (142-424); Red Blood Count 4.28 M/mm3 (4.20-5.40); Red Cell Distribution Width-SD 43.6 fL; White Blood Count 4.8 K/mm3 (4.8-10.8)
[2025-05-01 09:44] LABS: Albumin Level 4.5 g/dl (3.5-5.0); Chloride 105 mmol/L (98-107); Potassium 4.2 mmoL/L (3.5-5.1); Sodium 141 mmol/L (136-145)
[2025-05-01 09:47] LABS: Alanine Aminotransferase 18 U/L (12-78); Albumin/Globulin Ratio 1.7 (1.1-1.8); Alkaline Phosphatase 40 U/L (38-126); Anion Gap 15.2 mEq/L (5-15); Aspartate Amino Transferase 20 U/L (14-36); Bilirubin,Total 0.7 mg/dl (0.2-1.3); Blood Urea Nitrogen 10 mg/dl (7-17); Calcium 8.7 mg/dl (8.4-10.2); Carbon Dioxide 25 mmol/L (22.0-30.0); Creatinine,Serum 0.70 mg/dl (0.52-1.04); Estimated Glomerular Filt Rate 95 ml/min (>60); GFR (African American) 115 ML/MIN (>60); Globulin 2.7 g/dL (1.3-3.2); Glucose 80 mg/dl (74-100); Total Protein,Serum 7.2 g/dl (6.3-8.2)
[2025-05-01 09:48] LABS: Magnesium 2.0 mg/dl (1.6-2.3)
[2025-05-01 09:56] LABS: NT Pro Brain Natriuretic Pep. 190 pg/mL (0-125)
== END 2025-05-01 23:59 | disposition home or self-care (01) ==
LOC: LAB 09:08
PROVIDERS: PCP Nurse Practitioner Family; Visit Provider Nurse Practitioner Family
DX: E83.42 Hypomagnesemia (principal); A04.72 Enterocolitis due to Clostridium difficile, not specified as recurrent; R79.89 Other specified abnormal findings of blood chemistry
CPT/HCPCS: 36415; 80053; 83735; 83880; 85025